=== PATIENT | female | born 1935 | race Caucasian/White ===

== ENCOUNTER 2020-05-21 09:11 | Outpatient (CLI) | payer MEDICARE, SELFPAY ==
[2020-05-21 18:54] LABS: SARS-CoV-2 RNA PCR Negative
== END 2020-05-21 09:12 | disposition home or self-care (01) ==
LOC: ANHCOVIDDT 09:11
PROVIDERS: PCP Family Medicine; Visit Provider Urology
DX: Z01.812 Encounter for preprocedural laboratory examination (principal); Z20.828 Contact with and (suspected) exposure to other viral communicable diseases
CPT/HCPCS: 87635; C9803; U0003

== ENCOUNTER 2020-05-23 00:29 | Day surgery (SDC) | payer MEDICARE, SELFPAY ==
[2020-05-02 16:16] VITALS: BMI 20.6
--- NOTE | 2020-05-20 08:07 | PM.HPGS ---
History of Present Illness History of Present Illness Consent: Risks, benefits, and alternatives have been discussed and questions answered. Patient agrees to proceed with procedure. Chief complaint: Hydronephrosis Narrative: Bianca Adams is a 84 year old female With known chronic right hydronephrosis since January 2015. She has failed to respond to attempt at balloon dilatation and we made the decision to manage this with a chronic indwelling ureteral stent. Her stent was last changed in April 2019. Review of Systems Cardiovascular: Cardiovascular: Denies chest pain, Denies lightheadedness, Denies palpitations and Denies dyspnea Respiratory: Respiratory: Denies dyspnea Gastrointestinal: Gastrointestinal: Denies diarrhea, Denies nausea and Denies vomiting Genitourinary: Genitourinary: Denies hematuria and Denies dysuria Endocrine: Endocrine: Denies palpitations PMFSH Past Medical History Medical History Anxiety Arthritis CAD (coronary artery disease) With 3 cardiac stents DDD (degenerative disc disease) DVT (deep venous thrombosis) Left arm and 2009 Fibroids GERD (gastroesophageal reflux disease) History of chronic pancreatitis Due to autoimmune disease HLD (hyperlipidemia) Hydronephrosis Chronic Lupus (systemic lupus erythematosus) Myocardial infarction Osteoporosis Skin cancer Status post resection UTI (urinary tract infection) Surgical History Surgical History H/O bilateral cataract extraction H/O cystoscopy H/O: hysterectomy History of back surgery History of biliary duct stent placement Two thousand five performed at [facility] History of cardiac catheterization History of coronary artery stent placement 3 cardiac stents History of urethral stent Family History Family History Father Family history of tuberculosis Mother Acute myocardial infarction Grandparent Cerebrovascular accident Sibling Carcinoma of colon Family history of Alzheimer's disease DVT prophylaxis Breast cancer Sister who is still living Son Diabetes mellitus Social History Social History Social History: The patient lives in her own home. Her son resides with her. She is and has 4 children (2 boys and 2 girls). 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 She used to smoke a pack of cigarettes per day for 50 years but quit smoking in 2008. She used to like to drink alcohol on occasion and in moderation but had to stop after she got pancreatitis. She is independent in activities of daily living. 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 Per prior H&P patient code status is to be DNR. Her daughter Charity is her durable power of transactional attorney. Primary care physician is Dr. Kayode Lofton Smoking packs per day: 0.5 Smoking cigarettes per day: 10.0 Years smoked: 40 Smoking pack-years: 20.00 Smoking status: Former smoker Tobacco type: cigarettes Smoking end date: 10/04/04 Alcohol intake: former Substance use: never Gender identity (if verbalized by the patient): Male Spiritual care concerns: No Agree to blood products: Yes Meds Home Medications and Allergies Home Medications Medication Instructions Recorded Confirmed Type hydrocodone-acetaminophen [[place]] 1 tablet PO Q6-8H PRN 08/22/19 05/02/20 History atorvastatin 20 mg PO DAILY 05/15/20 05/15/20 History carvedilol 25 mg PO BID 05/15/20 05/15/20 History [id number]-[id number]-svlzvby [Creon] 1 cap PO ACHS 05/15/20 05/15/20 History lisinopril 5 mg PO DAILY 05/15/20 05/15/20 History pantoprazole 40 mg PO DAILY 05/15/20 05/15/20 History Allergies Allergy/AdvReac Type Severity Reaction Status Date / Time meperidine Allergy Mild (DEMEROL) Verified 05/15/20 13:27 JESSI
--- NOTE | ~2020-05-23 | XR_ITS ---
EXAMINATION: XR retrograde pyelo w/stent RT EXAM DATE: 05/23/2020 07:57 INDICATION: Right-sided hydronephrosis, stent exchange. TECHNIQUE: Fluoroscopy used during XR retrograde pyelo w/stent RT performed by Dr. Jaquan Ayoub MD. The DAP for this procedure was 0.3 mGym2. Cine run(s) available for review. FINDINGS: Right ureteral stent present on the braid maker image. The right ureter was injected. There is mo derate right-sided hydronephrosis. There is tortuous proximal aspect to the right ureter. A right-gabriela ed double-J ureteral stent was exchanged in expected position. Correlate with procedure note. IMPRESSION: Fluoroscopy used during XR retrograde pyelo w/stent RT. Reviewed, dictated and finalized at location B.
[2020-05-23 06:45] VITALS: BP 167/125; PULSE 71; RESP 14; TEMP 36.3; O2SAT 97; BMI 19.6
--- NOTE | 2020-05-23 06:57 | WPDHPUPDATE1 ---
History and Physical Update Update Date/Time: 05/23/20 06:57 History and Physical has been reviewed, including an updated exam of the patient. There are NO changes in the patient's condition. Risks, benefits, and alternatives have been discussed and questions answered. Patient agrees to proceed with procedure.
--- NOTE | 2020-05-23 07:02 | WPDANESEPPF ---
Anes - Initial Pre Proc Eval Procedure: Operation Date: 05/23/20 07:30 Proposed Procedures p Cystoscopy with Right Ureteral Stent Exchange - Jaquan Ayoub MD Date/Time: 05/23/20 07:02 Surgeon: Jaquan Ayoub MD Pre Op Diagnosis: Hydronephrosis Patient Data Age: 84 Gender: F Height: 5 ft 4 in Weight: 51.9 kg Last Vital Signs Temp 36.3 C L 05/23/20 06:45 Pulse 71 05/23/20 06:45 Resp 14 05/23/20 06:45 BP 167/125 H 05/23/20 06:45 Pulse Ox 97 05/23/20 06:45 Allergies Allergy/AdvReac Type Severity Reaction Status Date / Time meperidine Allergy Mild (DEMEROL) Verified 05/15/20 13:27 LEGS JERKING , FEELING FUNNY Home Medications Medication Instructions Recorded Confirmed Type hydrocodone-acetaminophen [[place]] 1 tablet PO Q6-8H PRN 08/22/19 05/23/20 History atorvastatin 20 mg PO DAILY 05/15/20 05/23/20 History carvedilol 25 mg PO BID 05/15/20 05/23/20 History vcyzey-dbqcevxb-emdbhlk [Creon] 1 cap PO ACHS 05/15/20 05/23/20 History lisinopril 5 mg PO DAILY 05/15/20 05/23/20 History pantoprazole 40 mg PO DAILY 05/15/20 05/23/20 History Patient hx anesthesia problems: none Family hx anesthesia problems: none PMFSH Past Medical History Medical History Anxiety Arthritis CAD (coronary artery disease) With 3 cardiac stents DDD (degenerative disc disease) DVT (deep venous thrombosis) Left arm and 2009 Fibroids GERD (gastroesophageal reflux disease) History of chronic pancreatitis Due to autoimmune disease HLD (hyperlipidemia) Hydronephrosis Chronic Lupus (systemic lupus erythematosus) Myocardial infarction Osteoporosis Skin cancer Status post resection UTI (urinary tract infection) Surgical History Surgical History H/O bilateral cataract extraction H/O cystoscopy H/O: hysterectomy History of back surgery History of biliary duct stent placement Two thousand five performed at [facility] History of cardiac catheterization History of coronary artery stent placement 3 cardiac stents History of urethral stent Family History Family History Father Family history of tuberculosis Mother Acute myocardial infarction Grandparent Cerebrovascular accident Sibling Carcinoma of colon Family history of Alzheimer's disease DVT prophylaxis Breast cancer Sister who is still living Son Diabetes mellitus Social History Social History Social History: The patient lives in her own home. Her son resides with her. She is and has 4 children (2 boys and 2 girls). She worked in a [employer] in [place] but is now retired. She used to smoke a pack of cigarettes per day for 50 years but quit smoking in 2008. She used to like to drink alcohol on occasion and in moderation but had to stop after she got pancreatitis. She is independent in activities of daily living. 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 Per prior H&P patient code status is to be DNR. Her daughter Charity is her durable power of [place] attorney. Primary care physician is Dr. Kayode Lofton Smoking packs per day: 0.5 Smoking cigarettes per day: 10.0 Years smoked: 40 Smoking pack-years: 20.00 Smoking status: Former smoker Tobacco type: cigarettes Smoking end date: 10/04/04 Alcohol intake: former Substance use: never Living arrangements: with family Gender identity (if verbalized by the patient): Male Spiritual care concerns: No Agree to blood products: Yes Anes - Eval Final PreProcedure Day of Procedure 05/23/20 07:02 Patient weight: normal Heart: regular rate and rhythm Lungs: decreased breath sounds Airway: Mallampati scale class II Neurological: other (alert) Last oral intake: >/= 8 hours ASA cla
[2020-05-23] MEDS: LACTATED RINGERS 1,000 ML 30 ML IV CONT (07:10)
--- NOTE | 2020-05-23 07:15 | SUR.PREOP ---
DR MACHADO AWARE OF ELEVATED BP AND PT HAVING PAIN. NO INTERVENTIONS FOR AT THIS TIME.
[2020-05-23] MEDS: ceFAZolin 2 GM/D5W 50 ML 2 GM/50 ML BAG IVPB (07:25)
[2020-05-23] MEDS: LIDOCAINE HCL 2% GEL UROJET 10 ML PKG MUCOUS MEM (07:38)
[2020-05-23 07:58] VITALS: BP 117/69; PULSE 58; RESP 14; O2SAT 100
--- NOTE | 2020-05-23 08:00 | PM.PROC ---
Procedure Note - Detailed Date of procedure: 05/23/20 Pre-op diagnosis: Hydronephrosis Post-op diagnosis: same Procedure performed: 1. Cystoscopy with right retrograde pyelography. 2. Riight ureteral stent removal and replacement Description of procedure: The patient was brought to the operative suite where she was prepped and draped in a routine sterile fashion while in the dorsal lithotomy position. A 19 F rigid cystoscope was placed in her bladder and the bladder was circumferentially inspected. The bladder neck and urethra were endoscopically normal. The bladder mucosa was without hyperemia. There was no intravesical foreign body or neoplasm. There was a single orthotopic ureteral orifice bilaterally. the indwelling stent was grasped and removed with ease, there was essentially no incrustation. An angiographic catheter was used to obtain a right retrograde pyelogram and ensure proper positioning of the stent. There were no obvious filling defects or other upper tract pathology. A new 4.8F variable length ureteral stent was positioned with the proximal coil in the renal pelvis and the distal coil in the bladder. Scopes and wires were removed after emptying the patient's bladder. Anesthesia: MAC Surgeon: Jaquan Ayoub MD Estimated blood loss (mL): 0 Drains: No Packing: No Pathology: none sent Complications: No immediate complications Condition: stable Disposition: PACU
[2020-05-23 08:30] VITALS: BP 140/97; PULSE 70; RESP 16
--- NOTE | 2020-05-23 08:48 | SUR.PHASEII ---
0810; PT AWAKE AND ALERT. DENIES PAIN OR NAUSEA. TALKATIVE. UP TO RECLINER. GAIT STEADY.
[2020-05-23 09:00] VITALS: BP 155/91; PULSE 75; RESP 16
--- NOTE | 2020-05-23 14:45 | SUR.PHASEII ---
0900; PT AWAKE AND ALERT. DENIES PAIN OR NAUSEA. TALKATIVE. READY TO GO HOME. MEETS DISCHARGE CRITERIA.
== END 2020-05-23 09:25 | disposition home or self-care (01) ==
PROVIDERS: PCP Family Medicine; Visit Provider Urology
PROC: (CPT 52310; principal; 2020-05-23 07:30)
DX: N13.30 Unspecified hydronephrosis (principal); I25.10 Atherosclerotic heart disease of native coronary artery without angina pectoris; E78.5 Hyperlipidemia, unspecified; I25.2 Old myocardial infarction; M81.0 Age-related osteoporosis without current pathological fracture; M32.9 Systemic lupus erythematosus, unspecified; K21.9 Gastro-esophageal reflux disease without esophagitis; F41.9 Anxiety disorder, unspecified; Z86.718 Personal history of other venous thrombosis and embolism; Z95.5 Presence of coronary angioplasty implant and graft; Z87.891 Personal history of nicotine dependence
CPT/HCPCS: 52332; 74420; 99281; A9270; C1758; C1769; C2617; J0690; J2704; J3010; J7120

== ENCOUNTER 2020-05-23 11:01 | Emergency (ER) | payer MEDICARE, SELFPAY ==
[2020-05-23 10:55] VITALS: BP 179/117; PULSE 79; RESP 16; TEMP 36.6; O2SAT 97
--- NOTE | 2020-05-23 11:10 | ED.GENADULT ---
HPI - General Adult General Chief complaint: Wound/Laceration Stated complaint: HEMATOMA LFA Time Seen by Provider: 05/23/20 11:05 Source: patient Mode of arrival: ambulatory History of Present Illness HPI narrative: 84 years old white female presents with left forearm hematoma after IV access earlier today. Patient is concerned about the possibility of blood clot. Patient denies any fever, chills, nausea, vomiting, chest pain, shortness of breath or back pain. Related Data Home Medications Medication Instructions Recorded Confirmed hydrocodone-acetaminophen [[employer]] 1 tablet PO Q6-8H PRN 08/22/19 05/23/20 Creon 1 cap PO ACHS 05/15/20 05/23/20 atorvastatin 20 mg PO DAILY 05/15/20 05/23/20 carvedilol 25 mg PO BID 05/15/20 05/23/20 lisinopril 5 mg PO DAILY 05/15/20 05/23/20 pantoprazole 40 mg PO DAILY 05/15/20 05/23/20 Allergies Allergy/AdvReac Type Severity Reaction Status Date / Time meperidine Allergy Mild (DEMEROL) Verified 05/15/20 13:27 LEGS JERKING , FEELING FUNNY Review of Systems Review of Systems: Narrative: CONSTITUTIONAL: Denies fever, chills, or sweats. EYES: Denies visual changes, redness, or discharge. ENT: Denies rhinorrhea, congestion, sore throat, or otalgia. CARDIOVASCULAR: Denies chest pain, palpitations, or edema. RESPIRATORY: Denies cough or dyspnea. GASTROINTESTINAL: Denies abdominal pain, nausea, vomiting, or diarrhea. GENITOURINARY: Denies dysuria or hematuria. SKIN: Denies rash or itching. MUSCULOSKELETAL: Denies back pain, joint pain, or myalgia. NEUROLOGIC: Denies headache, numbness, or weakness. PSYCHIATRIC: Denies anxiety or depression. [facility] Past Medical History Medical History Anxiety Arthritis CAD (coronary artery disease) With 3 cardiac stents DDD (degenerative disc disease) DVT (deep venous thrombosis) Left arm and 2009 Fibroids GERD (gastroesophageal reflux disease) History of chronic pancreatitis Due to autoimmune disease HLD (hyperlipidemia) Hydronephrosis Chronic Lupus (systemic lupus erythematosus) Myocardial infarction Osteoporosis Skin cancer Status post resection UTI (urinary tract infection) Surgical History Surgical History H/O bilateral cataract extraction H/O cystoscopy H/O: hysterectomy History of back surgery History of biliary duct stent placement Two thousand five performed at [facility] History of cardiac catheterization History of coronary artery stent placement 3 cardiac stents History of urethral stent Family History Family History Father Family history of tuberculosis Mother Acute myocardial infarction Grandparent Cerebrovascular accident Sibling Carcinoma of colon Family history of Alzheimer's disease DVT prophylaxis Breast cancer Sister who is still living Son Diabetes mellitus Social History Social History Social History: The patient lives in her own home. Her son resides with her. She is and has 4 children (2 boys and 2 girls). 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 She used to smoke a pack of cigarettes per day for 50 years but quit smoking in 2008. She used to like to drink alcohol on occasion and in moderation but had to stop after she got pancreatitis. She is independent in activities of daily living. 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 Per prior H&P patient code status is to be DNR. Her daughter Charity is her durable power of commonwealth attorney. Primary care physician is Dr. Kayode Lofton Smoking packs per day: 0.5 Smoking cigarettes per day: 10.0 Years smoked: 40 Smoking pack-years: 20.00 Smoking status: Former smoker Tobacco type: cigarettes Smoking end date: 10/04/04 Alcohol intake: former Substance use: never L
== END 2020-05-23 11:20 | disposition home or self-care (01) ==
LOC: ANHED 11:30
PROVIDERS: Emergency Provider Emergency Medicine; PCP Family Medicine
DX: T80.89XA Other complications following infusion, transfusion and therapeutic injection, initial encounter (principal); M19.90 Unspecified osteoarthritis, unspecified site; I25.10 Atherosclerotic heart disease of native coronary artery without angina pectoris; Z95.5 Presence of coronary angioplasty implant and graft; Z86.718 Personal history of other venous thrombosis and embolism; K21.9 Gastro-esophageal reflux disease without esophagitis; E78.5 Hyperlipidemia, unspecified; M32.9 Systemic lupus erythematosus, unspecified; M81.0 Age-related osteoporosis without current pathological fracture; Z85.828 Personal history of other malignant neoplasm of skin; Z87.440 Personal history of urinary (tract) infections; Z87.891 Personal history of nicotine dependence
CPT/HCPCS: 99281

== ENCOUNTER 2020-10-15 17:16 | Emergency (ER) | payer MEDICARE, SELFPAY ==
--- NOTE | 2020-10-15 17:32 | ED.GENADULT ---
HPI - General Adult General Chief complaint: Ear Stated complaint: Ears Clogged/Foreign object in ear Time Seen by Provider: 10/15/20 17:40 Source: patient, family (daughter) and RN notes reviewed Mode of arrival: ambulatory Limitations: no limitations History of Present Illness HPI narrative: 85-year-old female presents with daughter, both complains of bilateral clogged ears, decrease hearing, and possible foreign body in ear for the past 7 days. Bianca reports she has been cleaning and picking at ears with kenisha pins and q-tips without relief. Wears hearing aids, same ones for the last 6-7 years. Denies upper respiratory infection symptoms. Denies cough. Denies ear drainage or tinnitus. Denies injury to ears. No high fevers or chills. Denies nausea, vomiting, syncopal episodes, and dizziness. Remains active. The patient and daughter reports they have not been diagnosed with COVID-19. The patient and daughter reports they are not waiting for the results of a COVID-19 lab test. The patient and daughter reports they do not have chills, weakness, or fatigue. The patient and daughter reports they do not have a new or worsening cough or shortness of breath. Denies chest pain. The patient and daughter reports they do not have any rhinorrhea, congestion, loss of taste, sore throat, and diarrhea. Denies recent traveling. Denies concerns for COVID-19 or exposures been home with limited outdoor exposure except for essential household needs and return home. At this time, patient is not suspected of having COVID-19. Some parts of this dictation were generated by voice recognition software and may contain typographical and/or grammatical inaccuracies. Related Data Home Medications Medication Instructions Recorded Confirmed atorvastatin 20 mg PO DAILY 10/15/20 10/15/20 carvedilol 25 mg PO DAILY 10/15/20 10/15/20 hydrocodone-acetaminophen 10 tablet PO DAILY 10/15/20 10/15/20 [id number]-[id number] [Creon] 24,000 cap PO DAILY 10/15/20 10/15/20 lisinopril 2.5 mg PO DAILY 10/15/20 10/15/20 pantoprazole 40 mg PO DAILY 10/15/20 10/15/20 Allergies Allergy/AdvReac Type Severity Reaction Status Date / Time meperidine Allergy Mild (DEMEROL) Verified 10/15/20 17:19 LEGS JERKING , FEELING FUNNY Review of Systems Review of Systems: Narrative: CONSTITUTIONAL: Denies fever, chills, sweats. EYES: Denies visual changes, redness, discharge. ENT: Denies itching, rhinorrhea, congestion, sore throat, ear drainage. Complains of bilateral clogged ears, decrease hearing, and possible foreign body. CARDIOVASCULAR: Denies chest pain, palpitations, edema. RESPIRATORY: Denies dyspnea, wheezing, cough. GASTROINTESTINAL: Denies abdominal pain, nausea, vomiting, diarrhea. SKIN: Denies rash or itching. MUSCULOSKELETAL: Denies acute back pain, joint pain, or myalgia. NEUROLOGIC: Denies numbness or focal weakness. PSYCHIATRIC: Denies anxiety or depression. All systems reviewed & are unremarkable except as noted in HPI and below. COUNTS INCLUDE 234 BEDS AT THE [facility] Past Medical History Medical History (Updated 10/16/20 @ 00:00 by Background Dasteveon) Anxiety Arthritis CAD (coronary artery disease) With 3 cardiac stents DDD (degenerative disc disease) DVT (deep venous thrombosis) Left arm and 2009 Fibroids GERD (gastroesophageal reflux disease) History of chronic pancreatitis Due to autoimmune disease HLD (hyperlipidemia) [place] (hard of hearing) Hydronephrosis Chronic Hydronephrosis Lupus (systemic lupus erythematosus) Myocardial infarction Near syncope Orthostatic hypotension Osteoporosis Presence of pancreatic duct stent Skin cancer Status post resection UTI (urinary tract infection) Surgical History Surgical History H/O bilateral cataract extraction H/O cystoscopy H/O: hysterectomy History of back surgery History of biliary duct stent placement Two thousand five performed at
[2020-10-15 17:35] VITALS: BP 165/116; PULSE 86; RESP 16; TEMP 37.3; O2SAT 96
== END 2020-10-15 18:29 | disposition home or self-care (01) ==
PROVIDERS: Emergency Provider Nurse Practitioner Family; PCP Family Medicine
DX: H61.23 Impacted cerumen, bilateral (principal); Z87.891 Personal history of nicotine dependence; Z66 Do not resuscitate; Z98.42 Cataract extraction status, left eye; Z98.41 Cataract extraction status, right eye; M19.90 Unspecified osteoarthritis, unspecified site; I25.10 Atherosclerotic heart disease of native coronary artery without angina pectoris; Z95.5 Presence of coronary angioplasty implant and graft; Z86.718 Personal history of other venous thrombosis and embolism; K21.9 Gastro-esophageal reflux disease without esophagitis; M32.9 Systemic lupus erythematosus, unspecified; I25.2 Old myocardial infarction; M81.0 Age-related osteoporosis without current pathological fracture; Z85.828 Personal history of other malignant neoplasm of skin
CPT/HCPCS: 69210; 99213; G0463

== ENCOUNTER 2021-03-20 10:14 | Observation (INO) | payer MEDICARE, SELFPAY ==
[2021-03-20] VITALS (12 sets, daily range): BP systolic 105–225; BP diastolic 61–125; PULSE 60–95; RESP 16–21; TEMP 36.6–37.2; O2SAT 92–99; BMI 18.5
--- NOTE | ~2021-03-20 | CT_ITS ---
EXAMINATION: CT abdomen pelvis wo con DATE: 03/20/2021 11:14 INDICATION: Flank pain. TECHNIQUE: Computed tomography (CT) of the abdomen and pelvis was performed without intravenous contr ast. The dose-length product was 154.36 mGy-cm. Automated exposure control and iterative reconstructi on technique were employed. COMPARISON: CT dated 11/20/2018. FINDINGS: Lung bases are unremarkable. Cardiomegaly. Small pericardial effusion. Fusiform 3.4 x 3.1 c m infrarenal abdominal aortic aneurysm. There is moderate-severe stenosis of the iliac arteries. Ther e are biliary stents in expected position. The spleen, pancreas and left kidney are unremarkable. The re is right renal atrophy with right internal ureteral stent in expected position. Nonobstructive bow el gas pattern. There is pneumobilia in the left hepatic lobe. IMPRESSION: 1. Biliary stents in expected position. Pneumobilia of the left hepatic lobe unchanged. 2: Fusiform infrarenal abdominal aortic aneurysm measuring 3.4 x 3.1 cm greatest axial dimension. Ext ensive atherosclerosis with moderate-severe stenosis of the iliac arteries. 3: Right renal atrophy. Right internal ureteral stent in expected position. Reviewed, dictated and finalized at location A. IMPRESSION: 1. Biliary stents in expected position. Pneumobilia of the left hepatic lobe un changed. 2: Fusiform infrarenal abdominal aortic aneurysm measuring 3.4 x 3.1 cm greates t axial dimension. Extensive atherosclerosis with moderate-severe stenosis of t he iliac arteries. 3: Right renal atrophy. Right internal ureteral stent in expected position.
--- NOTE | ~2021-03-20 | XR_ITS ---
XR chest 1V portable 03/20/2021 13:17 Indication: Hypertension. Procedure: AP portable chest Comparison: Comparison to multiple prior studies sequentially, with oldest reviewed study dated 06/2009. Findings: Heart size normal. There is atherosclerosis and ectasia of the aorta. No acute osseous abno rmality. No focal air space disease, pulmonary edema, pleural effusion or suspected pneumothorax. Impression: 1: No acute cardiopulmonary disease. Reviewed, dictated and finalized at location A. Impression: 1: No acute cardiopulmonary disease.
--- NOTE | ~2021-03-20 | XR_ITS ---
EXAMINATION: XR retrograde pyelo w/stent RT DATE: 03/21/2021 09:48 INDICATION: Right internal ureteral stent placement TECHNIQUE: Fluoroscopic images from a right internal ureteral stent placement are submitted for adan denney 96 fluoroscopic images. 44 seconds of fluoroscopy time. FINDINGS: There is a right double-J internal ureteral stent projecting in expected position, with proximal [place] loop at the level of the renal pelvis and distal loop in the pelvis within the bladder lumen. IMPRESSION: 1. Right internal ureteral stent placement. Please refer to real-time procedural findings for jamee shelton. Reviewed, dictated and finalized at location A. IMPRESSION: 1. Right internal ureteral stent placement. Please refer to real-time procedu ral findings for details.
[2021-03-20 10:29] LABS: Basophils Percent Auto 0.6 % (0.2-1.2); Eosinophils Absolute Auto 0.2 K/mm3 (0-0.3); Eosinophils Percent Auto 2.2 % (0-4.4); Hematocrit 46.2 % (37.0-47.0); Hemoglobin 15.2 g/dL (12.0-15.0); Immature Granulocyte Absolute 0.02 K/mm3 (0.00-0.031); Immature Granulocyte Percent A 0.3 % (0-0.5); Lymphocytes Absolute Auto 1.63 K/mm3 (0.9-3.2); Lymphocytes Percent Auto 23.6 % (18.3-44.2); Mean Corpuscular HGB Conc 32.9 g/dl (32-36); Mean Corpuscular Volume 91.1 fl (80-100); Monocytes Absolute Auto 0.6 K/mm3 (0.1-0.6); Monocytes Percent Auto 8.7 % (2.6-8.5); Neutrophils Absolute Auto 4.5 K/mm3 (1.3-6.7); Neutrophils Percent Auto 64.6 % (45.5-73.1); Platelet Count Result 232 k/mm3 (150-375); Red Blood Count 5.07 M/mm3 (4.2-5.4); White Blood Count 6.9 K/mm3 (4.5-10.0)
[2021-03-20 10:39] LABS: Alanine Aminotransferase 27 U/L (4-35); Albumin Level 5.1 g/dL (3.5-5.1); Alkaline Phosphatase 85 U/L (38-126); Anion Gap 11 mmol/L (8-16); Aspartate Amino Transferase 43 U/L (14-36); Bilirubin,Total 0.8 mg/dL (0.2-1.3); Blood Urea Nitrogen 18 mg/dL (7-17); Carbon Dioxide 27 mmol/L (22-30); Chloride 98 mmol/L (98-107); Estimated CRCL calculation 42 ml/min; Estimated Glomerular Filt Rate > 60; Glucose 121 mg/dL (65-105); Lipase 48 U/L (23-300); Potassium 4.3 mmol/L (3.4-5.0); Sodium 136 mmol/L (137-145)
--- NOTE | 2021-03-20 11:08 | PC.NURSE ---
Pt to CT scan via stretcher.
[2021-03-20 11:14] LABS: Add Urine Microscopic? YES; Appearance Urine Clear (Clear); Bilirubin Urine Negative (Negative); Blood Urine Negative (Negative); Color Urine Straw (Yellow); Glucose Urine UA Negative (Negative); Ketones Urine Negative (Negative); Leukocyte Esterase Ur Negative LEU/UL (Negative); Mucus Urine Rare /lpf; Nitrate Urine Negative (Negative); Protein Urine 2+ mg/dL (Negative); RBC Urine 0-2 /hpf (0-2); Specific Grav Ur 1.009 (1.001-1.035); Urobilinogen Urine Negative mg/dL (<2.0)
[2021-03-20] MEDS: MORPHINE SULFATE (*CRX) 4 MG/ML INJ IV PUSH ×2 (11:16→12:48)
[2021-03-20] MEDS: SODIUM CHLORIDE 0.9% IV 500 ML 999 ML IV CONT (11:16)
[2021-03-20] MEDS: carvediloL 25 MG TABLET PO ×2 (12:48→21:37)
[2021-03-20] MEDS: KETOROLAC 30 MG/ML VIAL (*BKC) 10 MG IV PUSH (13:10)
[2021-03-20] MEDS: FAMOTIDINE 20 MG/2 ML VIAL IV PUSH ×2 (14:05→20:34)
[2021-03-20] MEDS: SODIUM CHLORIDE 0.9% IV 1,000 ML 999 ML IV CONT (14:05)
[2021-03-20] MEDS: ONDANSETRON INJ 4 MG/2 ML VIAL IV PUSH (14:05)
--- NOTE | 2021-03-20 14:56 | ED.GENADULT ---
HPI - General Adult General Chief complaint: Abdominal Pain Stated complaint: side pain Time Seen by Provider: 03/20/21 10:22 Source: patient, family, RN notes reviewed and old records reviewed Mode of arrival: ambulatory Limitations: no limitations History of Present Illness HPI narrative: Patient is an 85-year-old female who presents to emergency department for evaluation of right-sided flank pain abdominal pain for the last several days has been taking her hydrocodone with minimal improvement notes that she has had a ureteral stent in place which was placed by Dr. Dillon's which has been there for the last year patient believes this pain to be associated with that denies any fever chills nausea vomiting diarrhea or any URI symptoms. Patient notes that she has run out of her pain with intensifying pain Related Data Home Medications Medication Instructions Recorded Confirmed atorvastatin 20 mg PO DAILY 10/15/20 10/15/20 carvedilol 25 mg PO DAILY 10/15/20 10/15/20 hydrocodone-acetaminophen 10 tablet PO DAILY 10/15/20 10/15/20 [id number]-fuzddyjq-[id number] [Creon] 24,000 cap PO DAILY 10/15/20 10/15/20 lisinopril 2.5 mg PO DAILY 10/15/20 10/15/20 pantoprazole 40 mg PO DAILY 10/15/20 10/15/20 Allergies Allergy/AdvReac Type Severity Reaction Status Date / Time meperidine Allergy Mild (DEMEROL) Verified 03/20/21 10:33 LEGS JERKING , FEELING FUNNY Review of Systems Review of Systems: All systems reviewed & are unremarkable except as noted in HPI and below PMFSH Past Medical History Medical History Anxiety Arthritis CAD (coronary artery disease) With 3 cardiac stents DDD (degenerative disc disease) DVT (deep venous thrombosis) Left arm and 2009 Fibroids GERD (gastroesophageal reflux disease) History of chronic pancreatitis Due to autoimmune disease HLD (hyperlipidemia) [place] (hard of hearing) Hydronephrosis Chronic Hydronephrosis Lupus (systemic lupus erythematosus) Myocardial infarction Near syncope Orthostatic hypotension Osteoporosis Presence of pancreatic duct stent Skin cancer Status post resection UTI (urinary tract infection) Surgical History Surgical History H/O bilateral cataract extraction H/O cystoscopy H/O: hysterectomy History of back surgery History of biliary duct stent placement Two thousand five performed at [facility] History of cardiac catheterization History of coronary artery stent placement 3 cardiac stents History of urethral stent Family History Family History Father Family history of tuberculosis Mother Acute myocardial infarction Grandparent Cerebrovascular accident Sibling Carcinoma of colon Family history of Alzheimer's disease DVT prophylaxis Breast cancer Sister who is still living Son Diabetes mellitus Social History Social History Social History: The patient lives in her own home. Her son resides with her. She is and has 4 children (2 boys and 2 girls). 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 She used to smoke a pack of cigarettes per day for 50 years but quit smoking in 2008. She used to like to drink alcohol on occasion and in moderation but had to stop after she got pancreatitis. She is independent in activities of daily living. 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 Per prior H&P patient code status is to be DNR. Her daughter Charity is her durable power of deputy prosecuting attorney. Primary care physician is Dr. Kayode Lofton Smoking packs per day: 0.5 Smoking cigarettes per day: 10.0 Years smoked: 40 Smoking pack-years: 20.00 Smoking status: Former smoker Tobacco type: cigarettes Smoking end date: 10/04/04 Alcohol intake: former Substance use: never
--- NOTE | 2021-03-20 17:03 | WPDURCON ---
Assessment and Plan Assessment and plan (1) Abdominal pain: Code(s): R10.9 - Unspecified abdominal pain Status: Acute (2) Ureteral stricture, right: Code(s): N13.5 - Crossing vessel and stricture of ureter without hydronephrosis Status: Acute Assessment and Plan: Chronic right ureteral stricture managed with ureteral stent. While patient is here I will plan to exchange her right ureteral stent to look eliminate any possibility that may be contributing to her atypical abdominal pain. Urology Consult Note HPI Date Seen: 03/20/21 Requesting Physician: Belinda Calles MD Primary Care Provider: Kayode Lofton MD Consult Narrative Narrative: Bianca Adams is a 85 year old female who is very well known to me with a several year history of a chronic right ureteral stricture with right renal atrophy that is managed with an indwelling ureteral stent. We change the stent annually and there is suppressing the little encrustation at that prolonged interval. She presents to the ER with a somewhat atypical abdominal pain. CT imaging shows the stent to be in good position. After discussion with patient we decided to change the stent while she is here is it is due be changed within the next 6-8 weeks. Review of Systems Cardiovascular: Cardiovascular: Denies chest pain, Denies lightheadedness, Denies palpitations and Denies dyspnea Respiratory: Respiratory: Denies dyspnea Gastrointestinal: Gastrointestinal: Reports abdominal pain, Denies diarrhea, Denies nausea and Denies vomiting Genitourinary: Genitourinary: Denies hematuria and Denies dysuria Endocrine: Endocrine: Denies palpitations [facility] Past Medical History Medical History Anxiety Arthritis CAD (coronary artery disease) With 3 cardiac stents DDD (degenerative disc disease) DVT (deep venous thrombosis) Left arm and 2009 Fibroids GERD (gastroesophageal reflux disease) History of chronic pancreatitis Due to autoimmune disease HLD (hyperlipidemia) [place] (hard of hearing) Hydronephrosis Chronic Hydronephrosis Lupus (systemic lupus erythematosus) Myocardial infarction Near syncope Orthostatic hypotension Osteoporosis Presence of pancreatic duct stent Skin cancer Status post resection UTI (urinary tract infection) Surgical History Surgical History H/O bilateral cataract extraction H/O cystoscopy H/O: hysterectomy History of back surgery History of biliary duct stent placement Two thousand five performed at [facility] History of cardiac catheterization History of coronary artery stent placement 3 cardiac stents History of urethral stent Family History Family History Father Family history of tuberculosis Mother Acute myocardial infarction Grandparent Cerebrovascular accident Sibling Carcinoma of colon Family history of Alzheimer's disease DVT prophylaxis Breast cancer Sister who is still living Son Diabetes mellitus Social History Social History Social History: The patient lives in her own home. Her son resides with her. She is and has 4 children (2 boys and 2 girls). 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 She used to smoke a pack of cigarettes per day for 50 years but quit smoking in 2008. She used to like to drink alcohol on occasion and in moderation but had to stop after she got pancreatitis. She is independent in activities of daily living. 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 Per prior H&P patient code status is to be DNR. Her daughter Charity is her durable power of state's attorney. Primary care physician is Dr. Kayode Lofton Smoking packs per day: 0.5 Smoking cigarettes per day: 10.0 Years smoked: 40 Smoking pack-yea
--- NOTE | 2021-03-20 17:34 | WPDANESEPP ---
Anes - Eval Pre Procedure Procedure: Operation Date: 03/21/21 12:15 Proposed Procedures p Cystoscopy with Left Stent Exchange - Jaquan Ayoub MD Date/Time: 03/20/21 17:34 Pre Op Diagnosis: Abd pain Patient Data Age: 85 Gender: F Height: 5 ft 6 in Weight: 52 kg Last Vital Signs Temp 99.0 F 03/20/21 10:18 Pulse 61 03/20/21 16:16 Resp 19 03/20/21 16:16 BP 107/61 03/20/21 16:16 Pulse Ox 97 03/20/21 16:16 Allergies Allergy/AdvReac Type Severity Reaction Status Date / Time meperidine Allergy Mild (DEMEROL) Verified 03/20/21 10:33 LEGS JERKING , FEELING FUNNY Home Medications Medication Instructions Recorded Confirmed Type atorvastatin 20 mg PO DAILY 10/15/20 10/15/20 History carvedilol 25 mg PO DAILY 10/15/20 10/15/20 History fluticasone propionate [Allergy 1 spray NASAL BID #16 ml 10/15/20 Rx Relief (fluticasone)] hydrocodone-acetaminophen 10 tablet PO DAILY 10/15/20 10/15/20 History zwwegg-ouvsoqkb-rnjgbzo [Creon] 24,000 cap PO DAILY 10/15/20 10/15/20 History lisinopril 2.5 mg PO DAILY 10/15/20 10/15/20 History loratadine [Claritin] 10 mg PO DAILY 60 Days #60 tablet 10/15/20 Rx ferngjin-nhcots-EY-thonzonium 4 drop OTIC (EAR) TID 7 Days #10 ml 10/15/20 Rx [Cortisporin-TC] pantoprazole 40 mg PO DAILY 10/15/20 10/15/20 History Laboratory Tests 03/20/21 03/20/21 03/20/21 10:24 10:24 10:53 WBC 6.9 K/mm3 K/mm3 (4.5-10.0) RBC 5.07 M/mm3 M/mm3 (4.2-5.4) Hgb 15.2 g/dL H g/dL (12.0-15.0) Hct 46.2 % % (37.0-47.0) MCV 91.1 fl fl (80-100) MCH 30.0 pg pg (26-34) MCHC 32.9 g/dl g/dl (32-36) RDW 13.0 % % (11.5-14.5) Plt Count 232 k/mm3 k/mm3 (150-375) MPV 9.0 fl fl (7.4-10.4) Immature Gran % (Auto) 0.3 % % (0-0.5) Neut % (Auto) 64.6 % % (45.5-73.1) Lymph % (Auto) 23.6 % % (18.3-44.2) [place] % (Auto) 8.7 % H % (2.6-8.5) Eos % (Auto) 2.2 % % (0-4.4) Baso % (Auto) 0.6 % % (0.2-1.2) Lymph # (Auto) 1.63 K/mm3 K/mm3 (0.9-3.2) [place] # (Auto) 0.6 K/mm3 K/mm3 (0.1-0.6) Eos # (Auto) 0.2 K/mm3 K/mm3 (0-0.3) Baso # (Auto) 0.0 K/mm3 K/mm3 (0.0-0.1) Abs Immat Gran (auto) 0.02 K/mm3 K/mm3 (0.00-0.031) Absolute Neuts (auto) 4.5 K/mm3 K/mm3 (1.3-6.7) Absolute Nucleated RBC 0.0 K/mm3 K/mm3 (0.0-0.012) Nucleated RBC % 0.0 % % (0.0-0.2) Sodium 136 mmol/L L mmol/L (137-145) Potassium 4.3 mmol/L mmol/L (3.4-5.0) Chloride 98 mmol/L mmol/L (98-107) Carbon Dioxide 27 mmol/L mmol/L (22-30) Anion Gap 11 mmol/L mmol/L (8-16) BUN 18 mg/dL H D mg/dL (7-17) Creatinine 0.70 mg/dL mg/dL (0.7-1.0) Estim Creat Clear Calc 42 ml/min ml/min Estimated GFR > 60 (59 - ) Glucose 121 mg/dL H mg/dL (65-105) Calcium 10.0 mg/dL mg/dL (8.4-10.2) Total Bilirubin 0.8 mg/dL mg/dL (0.2-1.3) AST 43 U/L H U/L (14-36) ALT 27 U/L U/L (4-35) Alkaline Phosphatase 85 U/L U/L (38-126) Total Protein 9.0 g/dL H g/dL (6.3-8.2) Albumin 5.1 g/dL g/dL (3.5-5.1) Lipase 48 U/L U/L (23-300) Urine Color Straw (Yellow) Urine Appearance Clear (Clear) Urine pH 7.0 (5.0-9.0) Ur Specific [place] 1.009 (1.001-1.035) Urine Protein 2+ mg/dL H mg/dL (Negative) Urine Glucose (UA) Negative mg/dL mg/dL (Negative) Urine Ketones Negative mg/dL mg/dL (Negative) Ur Blood (Man) Negative (Negative) Urine Nitrate Negative (Negative) Urine Bilirubin Negative (Negative) Urine Urobilinogen Negative mg/dL mg/dL (<2.0) Leukocyte
--- NOTE | 2021-03-20 18:52 | PM.IMHP ---
H&P: HPI History of Present Illness Date/Time: 03/20/21 18:52 this is a 85-year-old female patient who lives with her son. The patient has been having chronic pain but has gotten worse over the last several days. She has been taking hydrocodone but has been taking more than usual. She has some right flank pain. The patient has a history of ureteral stent in place that was placed by Dr. jaime. The patient had ran out of her pain medicine when she came to the emergency room. The patient does have a history of degenerative disc disease with back surgery in the past. She had abdominal pelvis CT performed today which read as: 1. Biliary stents in expected position. Pneumobilia of the left hepatic lobe unchanged. 2: Fusiform infrarenal abdominal aortic aneurysm measuring 3.4 x 3.1 cm greatest axial dimension. Extensive atherosclerosis with moderate-severe stenosis of the iliac arteries. 3: Right renal atrophy. Right internal ureteral stent in expected position. Chest x-ray was read as no acute cardiopulmonary disease. Patient was given IV fluids, Coreg, morphine, Toradol, Pepcid and Zofran. Patient is being admitted for observation on 03/20/2021 Chief Complaint: Abdominal pain Review of Systems Review of Systems: All systems reviewed & are unremarkable except as noted in HPI and below Constitutional: Constitutional: Reports as per HPI and Reports no additional constitutional complaints Eyes: Eyes: Reports as per HPI and Reports no additional eye complaints ENT: Reports system reviewed and no additional complaints, except as documented and Reports Normal hearing present Cardiovascular: Cardiovascular: Reports no additional cardiovascular complaints Respiratory: Respiratory: Reports no additional respiratory complaints and Reports no additional respiratory complaints Gastrointestinal: Gastrointestinal: Reports as per HPI and Reports no additional gastrointestinal complaints Musculoskeletal: Musculoskeletal: Reports no additional musculoskeletal complaints Integumentary/Breasts: Skin/Breast: Reports system reviewed and no additional complaints, except as docu and Reports as per HPI Neurologic: Reports system reviewed and no additional complaints, except as documented, Reports as per HPI and Reports Normal hearing present Psychiatric: Psychiatric: Reports no additional psychiatric complaints and Reports as per HPI Endocrine: Endocrine: Reports no additional endocrine complaints Hematologic/Lymphatic: Hematologic/Lymphatic: Reports no additional hematologic/lymphatic complaints Allergic/Immunologic: Allergic/Immunologic: Reports no additional allergic/immunologic complaints [facility] Past Medical History Medical History (Updated 03/20/21 @ 19:30 by Megha Braga NP) Anxiety Arthritis CAD (coronary artery disease) With 3 cardiac stents Chronic pancreatitis DDD (degenerative disc disease) DVT (deep venous thrombosis) Left arm and 2009 Fibroids GERD (gastroesophageal reflux disease) History of chronic pancreatitis Due to autoimmune disease HLD (hyperlipidemia) [place] (hard of hearing) HTN (hypertension), malignant Hydronephrosis Chronic Hydronephrosis Lupus (systemic lupus erythematosus) Myocardial infarction Near syncope Orthostatic hypotension Osteoporosis Presence of pancreatic duct stent Skin cancer Status post resection UTI (urinary tract infection) Surgical History Surgical History H/O bilateral cataract extraction H/O cystoscopy H/O: hysterectomy History of back surgery History of biliary duct stent placement Two thousand five performed at [facility] History of cardiac catheterization History of coronary artery stent placement 3 cardiac stents History of urethral stent Family History Family History Father Family history of tuberculosis Mother Acute myocardial infarction Grandparent Cerebrovascu
[2021-03-20] MEDS: LACTATED RINGERS 1,000 ML 75 ML IV CONT (20:33)
[2021-03-20] MEDS: MORPHINE SULFATE (*CRX) 2 MG/ML INJ IV PUSH (20:34)
[2021-03-21] VITALS (19 sets, daily range): BP systolic 105–202; BP diastolic 62–179; PULSE 63–95; RESP 10–22; TEMP 36–37.1; O2SAT 93–99; BMI 18.5
[2021-03-21 06:39] LABS: Basophils Percent Auto 0.9 % (0.2-1.2); Eosinophils Absolute Auto 0.1 K/mm3 (0-0.3); Eosinophils Percent Auto 3.2 % (0-4.4); Hematocrit 37.5 % (37.0-47.0); Hemoglobin 11.9 g/dL (12.0-15.0); Immature Granulocyte Absolute 0.01 K/mm3 (0.00-0.031); Immature Granulocyte Percent A 0.2 % (0-0.5); Lymphocytes Absolute Auto 1.03 K/mm3 (0.9-3.2); Lymphocytes Percent Auto 23.4 % (18.3-44.2); Mean Corpuscular HGB Conc 31.7 g/dl (32-36); Mean Corpuscular Volume 94.5 fl (80-100); Mean Platelet Volume 9.2 fl (7.4-10.4); Monocytes Absolute Auto 0.6 K/mm3 (0.1-0.6); Monocytes Percent Auto 13.4 % (2.6-8.5); Neutrophils Absolute Auto 2.6 K/mm3 (1.3-6.7); Neutrophils Percent Auto 58.9 % (45.5-73.1); Platelet Count Result 143 k/mm3 (150-375); Red Blood Count 3.97 M/mm3 (4.2-5.4); Red Cell Distribution Width 13.1 % (11.5-14.5); White Blood Count 4.4 K/mm3 (4.5-10.0)
--- NOTE | 2021-03-21 06:41 | WPDHPUPDATE1 ---
History and Physical Update Update Date/Time: 03/21/21 06:41 History and Physical has been reviewed, including an updated exam of the patient. There are NO changes in the patient's condition. Risks, benefits, and alternatives have been discussed and questions answered. Patient agrees to proceed with procedure.
[2021-03-21 06:49] LABS: Anion Gap 6 mmol/L (8-16); Blood Urea Nitrogen 20 mg/dL (7-17); Calcium 8.5 mg/dL (8.4-10.2); Carbon Dioxide 26 mmol/L (22-30); Chloride 102 mmol/L (98-107); Estimated CRCL calculation 37 ml/min; Estimated Glomerular Filt Rate > 60; Glucose 88 mg/dL (65-105); Lipase 29 U/L (23-300); Magnesium 1.7 mg/dL (1.6-2.3); Potassium 3.7 mmol/L (3.4-5.0); Sodium 134 mmol/L (137-145)
--- NOTE | 2021-03-21 08:33 | WPDANESEPPF ---
Anes - Initial Pre Proc Eval Procedure: Operation Date: 03/21/21 12:15 Proposed Procedures p Cystoscopy with Left Stent Exchange - Jaquan Ayoub MD Date/Time: 03/21/21 08:33 Surgeon: Belinda Calles MD Pre Op Diagnosis: Abd pain Patient Data Age: 85 Gender: F Height: 1.68 m Weight: 52 kg Last Vital Signs Temp 36.8 C 03/21/21 06:00 Pulse 72 03/21/21 06:00 Resp 18 03/21/21 06:00 BP 105/82 03/21/21 06:00 Pulse Ox 93 03/21/21 06:00 Allergies Allergy/AdvReac Type Severity Reaction Status Date / Time meperidine Allergy Mild (DEMEROL) Verified 03/20/21 10:33 LEGS JERKING , FEELING FUNNY Home Medications Medication Instructions Recorded Confirmed Type atorvastatin 20 mg PO DAILY 10/15/20 03/20/21 History carvedilol 25 mg PO BID 10/15/20 03/20/21 History hydrocodone-acetaminophen 1 tablet PO Q6H PRN 10/15/20 03/20/21 History hhhusg-ibcrcwse-okinfgd [Creon] 3 cap PO TIDWM 10/15/20 03/20/21 History lisinopril 5 mg PO DAILY 10/15/20 03/20/21 History loratadine [Claritin] 10 mg PO DAILY 60 Days #60 tablet 10/15/20 03/20/21 Rx pantoprazole 40 mg PO DAILY 10/15/20 03/20/21 History aspirin 81 mg PO DAILY 03/20/21 03/20/21 History dicyclomine 20 mg PO QID PRN 03/20/21 03/20/21 History duloxetine 30 mg PO DAILY 03/20/21 03/20/21 History fluticasone propionate [Allergy 2 spray NASAL DAILY 03/20/21 03/20/21 History Relief (fluticasone)] meclizine 12.5 mg PO BID PRN 03/20/21 03/20/21 History nitroglycerin [Nitrostat] 0.4 mg SUBLINGUAL Q5M PRN 03/20/21 03/20/21 History sodium bicarbonate 1,300 mg PO DAILY 03/20/21 03/20/21 History Laboratory Tests 03/20/21 03/20/21 03/20/21 10:24 10:24 10:53 WBC 6.9 K/mm3 K/mm3 (4.5-10.0) RBC 5.07 M/mm3 M/mm3 (4.2-5.4) Hgb 15.2 g/dL H g/dL (12.0-15.0) Hct 46.2 % % (37.0-47.0) MCV 91.1 fl fl (80-100) MCH 30.0 pg pg (26-34) MCHC 32.9 g/dl g/dl (32-36) RDW 13.0 % % (11.5-14.5) Plt Count 232 k/mm3 k/mm3 (150-375) MPV 9.0 fl fl (7.4-10.4) Immature Gran % (Auto) 0.3 % % (0-0.5) Neut % (Auto) 64.6 % % (45.5-73.1) Lymph % (Auto) 23.6 % % (18.3-44.2) [place] % (Auto) 8.7 % H % (2.6-8.5) Eos % (Auto) 2.2 % % (0-4.4) Baso % (Auto) 0.6 % % (0.2-1.2) Lymph # (Auto) 1.63 K/mm3 K/mm3 (0.9-3.2) [place] # (Auto) 0.6 K/mm3 K/mm3 (0.1-0.6) Eos # (Auto) 0.2 K/mm3 K/mm3 (0-0.3) Baso # (Auto) 0.0 K/mm3 K/mm3 (0.0-0.1) Abs Immat Gran (auto) 0.02 K/mm3 K/mm3 (0.00-0.031) Absolute Neuts (auto) 4.5 K/mm3 K/mm3 (1.3-6.7) Absolute Nucleated RBC 0.0 K/mm3 K/mm3 (0.0-0.012) Nucleated RBC % 0.0 % % (0.0-0.2) Sodium 136 mmol/L L mmol/L (137-145) Potassium 4.3 mmol/L mmol/L (3.4-5.0) Chloride 98 mmol/L mmol/L (98-107) Carbon Dioxide 27 mmol/L mmol/L (22-30) Anion Gap 11 mmol/L mmol/L (8-16) BUN 18 mg/dL H D mg/dL (7-17) Creatinine 0.70 mg/dL mg/dL (0.7-1.0) Estim Creat Clear Calc 42 ml/min ml/min Estimated GFR > 60 (59 - ) Glucose 121 mg/dL H mg/dL (65-105) Calcium 10.0 mg/dL mg/dL (8.4-10.2) Magnesium Total Bilirubin 0.8 mg/dL mg/dL (0.2-1.3) AST 43 U/L H U/L (14-36) ALT 27 U/L U/L (4-35) Alkaline Phosphatase 85 U/L U/L (38-126) Total Protein 9.0 g/dL H g/dL (6.3-8.2) Albumin 5.1 g/dL g/dL (3.5-5.1) Lipase 48 U/L U/L (23-300) Urine Color Straw (Yellow) Urine Appearance Clear (Clear) Urine pH 7.0 (5.0-9.0) Ur Specific [place] 1.009 (1.001-1.035) Urine Protein 2+ mg/dL H mg/dL (Negative) Urine Glucose (UA
[2021-03-21] MEDS: ONDANSETRON INJ 4 MG/2 ML VIAL IV PUSH ×3 (08:41→17:00)
[2021-03-21] MEDS: LACTATED RINGERS 1,000 ML 30 ML IV CONT ×2 (09:10→11:15)
[2021-03-21] MEDS: LIDOCAINE HCL 2% GEL UROJET 10 ML PKG MUCOUS MEM (09:40)
--- NOTE | 2021-03-21 09:46 | W.PM.PROC2 ---
Procedure Note - Detailed Date of Procedure 03/21/21 Pre-op Diagnosis Abd pain, chronic right ureteral stricture Post-op Diagnosis same Procedure Performed cystoscopy, right retrograde pyelogram, right ureteral stent removal and replacement Surgeon Jaquan Ayoub MD Moisture Meter Operator none Anesthesia MAC Indications chronic right mid ureteral stricture Findings persistent stricture without significant change Description of Procedure Patient brought to the operative suite where she has prepped draped in routine sterile fashion. 2% lidocaine jelly was introduced intraurethrally and systemic sedation is administered per the anesthesia department. Cystoscopy is undertaken with a 21 F rigid cystoscope. The bladder neck and urethra endoscopically normal. Bladder mucosa is normal without hyperemia. She has an indwelling right ureteral stent without any additional foreign body or neoplasm. The stent is removed and a 0.035 in glidewire was advanced in the right renal pelvis. Retrograde pyelogram was obtained which shows a persistent stricture in the proximal to mid ureter. A 4.8 F ureteral stent was replaced with the proximal coil in the renal pelvis and distal coil in the bladder. Scopes wires removed and she was taken recovery room good condition. Implants 4.8F right ureteral stent Estimated Blood Loss 0 Urine Output 400 Drains Yes (4.8F right ureteral stent) Packing No Pathology none sent Complications No immediate complications Condition stable Disposition PACU
[2021-03-21] MEDS: hydrALAZINE HCL 20 MG/ML VIAL 10 MG IV PUSH ×2 (10:23→10:55)
[2021-03-21] MEDS: DEXAMETHASONE SOD PHOS INJ 4 MG/ML VIAL IV PUSH (10:59)
[2021-03-21] MEDS: HALOPERIDOL LACTATE 5 MG/ML VIAL 1 MG IV PUSH (11:48)
--- NOTE | 2021-03-21 11:56 | SUR.PHASEI ---
[id number] sbar faxed floor notified
[2021-03-21] MEDS: LACTATED RINGERS 1,000 ML 75 ML IV CONT (12:41)
--- NOTE | 2021-03-21 14:24 | PM.IMPN ---
Progress Note: A&P Assessment and Plan (1) Ureteral stricture, right: Code(s): N13.5 - Crossing vessel and stricture of ureter without hydronephrosis Status: Acute Assessment and Plan: Patient has history of chronic right ureteral stricture treated by ureteral stent placement. Patient presented with right flank pain. She is evaluated by Urology, Dr. Ayoub, and underwent right ureteral stent removal and replacement today. Unfortunately she developed significant anxiety I am told and she received a dose of Haldol. She remains sleepy. (2) Chronic pancreatitis: Qualifiers: Pancreatitis type: unspecified pancreatitis type Qualified Code(s): K86.1 - Other chronic pancreatitis Code(s): K86.1 - Other chronic pancreatitis Status: Chronic Assessment and Plan: Continue her home Creon. (3) HTN (hypertension): Code(s): I10 - Essential (primary) hypertension Status: Chronic Assessment and Plan: Blood pressures reviewed; stable today maintained on her home carvedilol, lisinopril. Monitor BP and adjust treatment as needed. (4) Anxiety: Code(s): F41.9 - Anxiety disorder, unspecified Status: Chronic Assessment and Plan: Continue her home Cymbalta. She received a dose of Haldol in the PACU due to significant anxiety I am told. (5) Narcotic drug use: Code(s): F11.90 - Opioid use, unspecified, uncomplicated Status: Chronic Assessment and Plan: Patient is on high doses of narcotics. She apparently ran out of her pain medications early before her new script could be filled. Continue her home pain regimen and monitor. Subjective Date/time seen: 03/21/21 1230 Interval history: Ms. Adams is an 85yo F admitted with right flank pain. She has a history of chronic right ureteral stricture managed with ureteral stent. She is seen in follow-up this afternoon after just returning from right ureteral stent removal and replacement. I am notified by nursing that she became very anxious, I am unclear on the exact events but she did receive a dose of Haldol about an hour ago. She is pretty somnolent but not really offering any complaints. Review of Systems Review of Systems: Narrative: Limited due to mental status at present. Exam Narrative: Exam Narrative: General: Elderly female resting supine in bed in no acute distress. Neuro: Somnolent but wakes easily to answer questions. No focal neurological deficits appreciated. Speech is soft and slow but clear. HEENT: Normocephalic, EOMI, oral mucosa tacky. Cardiovascular: Rate and rhythm are regular. No notable murmur, rub, or gallop. Respiratory: Lungs clear to auscultation bilaterally. Respirations even and non-labored. Tolerating room air. Abdomen: Soft, non-tender, non-distended, bowel sounds present. Extremities: Peripheral pulses intact. No edema or pain to palpation. Objective Data Vital Signs Vital Signs: Last Vital Signs Temp 97.5 F L 03/21/21 12:45 Pulse 82 03/21/21 12:45 Resp 14 03/21/21 12:45 BP 120/71 03/21/21 12:45 Pulse Ox 94 03/21/21 12:45 Intake/Output Intake/Output: Intake & Output 03/18/21 03/19/21 03/20/21 03/21/21 23:59 23:59 23:59 23:59 Intake Total 1980 3000 Output Total 600 800 Balance 1380 2200 Meds/Results Medications: Active Medications Generic Name Dose Route Start Last Admin Trade Name Freq PRN Reason Stop Dose Admin Hydrocodone Bitart/Acetaminophen 1 tab 03/20/21 20:41 Hydrocodone/Acetaminophen (*Crx) 10-325 Mg Tablet PO Q6H PRN Pain Rated 4-6 Atorvastatin Calcium 20 mg 03/21/21 09:00 Atorvastatin 20 Mg Tablet PO DAILY KOMAL Carvedilol 25 mg 03/20/21 21:00 03/20/21 2
[2021-03-21] MEDS: HYDROcodone/acetaminophen (*CRX) 10-325 MG TABLET 1 TAB PO (16:18)
[2021-03-21] MEDS: SODIUM BICARBONATE TAB 650 MG TABLET 1300 MG PO (16:23)
[2021-03-21] MEDS: DULoxetine HCL 30 MG CAPSULE.DR PO (16:23)
[2021-03-21] MEDS: DICYCLOMINE HCL 10 MG CAPSULE 20 MG PO (16:23)
[2021-03-21] MEDS: carvediloL 25 MG TABLET PO ×2 (16:23→21:54)
[2021-03-21] MEDS: MECLIZINE HCL 12.5 MG TABLET PO (16:23)
[2021-03-21] MEDS: lisinopriL 5 MG TABLET PO (16:23)
[2021-03-21] MEDS: PANTOPRAZOLE 40 MG TABLET PO (16:24)
[2021-03-21] MEDS: LORATADINE 10 MG TABLET PO (16:24)
[2021-03-21] MEDS: FAMOTIDINE 20 MG/2 ML VIAL IV PUSH ×2 (16:24→21:55)
[2021-03-21] MEDS: ATORVASTATIN 20 MG TABLET PO (16:24)
[2021-03-21] MEDS: MAGNESIUM SULF 2 GM/WATER 50ML 2 GM/50 ML BAG IVPB (17:01)
[2021-03-22] MEDS: HYDROcodone/acetaminophen (*CRX) 10-325 MG TABLET 1 TAB PO ×2 (04:08→10:16)
[2021-03-22] MEDS: LACTATED RINGERS 1,000 ML 75 ML IV CONT (04:09)
[2021-03-22 05:39] VITALS: BP 126/68; PULSE 72; RESP 17; TEMP 36.9; O2SAT 93
[2021-03-22 06:51] LABS: Hematocrit 35.8 % (37.0-47.0); Hemoglobin 11.7 g/dL (12.0-15.0); Mean Corpuscular HGB Conc 32.7 g/dl (32-36); Mean Corpuscular Hemoglobin 29.5 pg (26-34); Mean Corpuscular Volume 90.4 fl (80-100); Platelet Count Result 161 k/mm3 (150-375); Red Blood Count 3.96 M/mm3 (4.2-5.4); Red Cell Distribution Width 12.8 % (11.5-14.5); White Blood Count 8.2 K/mm3 (4.5-10.0)
[2021-03-22 06:59] LABS: Anion Gap 4 mmol/L (8-16); Blood Urea Nitrogen 21 mg/dL (7-17); Calcium 8.6 mg/dL (8.4-10.2); Carbon Dioxide 30 mmol/L (22-30); Chloride 95 mmol/L (98-107); Estimated CRCL calculation 34 ml/min; Estimated Glomerular Filt Rate 60; Glucose 90 mg/dL (65-105); Magnesium 2.1 mg/dL (1.6-2.3); Potassium 3.6 mmol/L (3.4-5.0); Sodium 129 mmol/L (137-145)
[2021-03-22] MEDS: FLUTICASONE PROPIONATE 0.05% NA SPR 16 GM BTL (*BKC) 2 SPRAY NASAL (08:54)
[2021-03-22] MEDS: PANTOPRAZOLE 40 MG TABLET PO (08:56)
[2021-03-22 10:08] VITALS: PULSE 80
[2021-03-22] MEDS: carvediloL 25 MG TABLET PO (10:08)
[2021-03-22] MEDS: LORATADINE 10 MG TABLET PO (10:09)
[2021-03-22] MEDS: ATORVASTATIN 20 MG TABLET PO (10:09)
[2021-03-22] MEDS: DULoxetine HCL 30 MG CAPSULE.DR PO (10:09)
[2021-03-22] MEDS: FAMOTIDINE 20 MG/2 ML VIAL IV PUSH (10:09)
[2021-03-22] MEDS: SODIUM BICARBONATE TAB 650 MG TABLET 1300 MG PO (10:09)
[2021-03-22] MEDS: lisinopriL 5 MG TABLET PO (10:09)
[2021-03-22] MEDS: CYCLOBENZAPRINE HCL 5 MG TABLET PO (10:10)
[2021-03-22 13:50] LABS: Anion Gap 8 mmol/L (8-16); Blood Urea Nitrogen 23 mg/dL (7-17); Calcium 8.7 mg/dL (8.4-10.2); Carbon Dioxide 29 mmol/L (22-30); Chloride 93 mmol/L (98-107); Estimated CRCL calculation 30 ml/min; Estimated Glomerular Filt Rate 53; Glucose 94 mg/dL (65-105); Potassium 3.7 mmol/L (3.4-5.0); Sodium 130 mmol/L (137-145)
[2021-03-22 14:00] VITALS: BP 107/63; PULSE 54; RESP 16; TEMP 36.8; O2SAT 93
--- NOTE | 2021-03-22 15:48 | PM.DS ---
DS: Admitting Diagnosis Admitting Diagnosis Admitting Diagnosis: R flank pain, chronic ureteral stricture DS: Discharge Diagnosis Discharge Diagnosis (1) Ureteral stricture, right: Code(s): N13.5 - Crossing vessel and stricture of ureter without hydronephrosis Status: Acute Assessment and Plan: Date of Admission 03/20/21 Date of Discharge 03/22/21 Ms. Adams is an 85yo F who presented to the ED for evaluation of right flank pain. She has a history of chronic right ureteral stricture treated by ureteral stent placement and follows with Dr Ayoub. She was evaluated by Dr Ayoub and underwent right ureteral stent removal and replacement. She developed significant anxiety and required a dose of Haldol in the PACU, was kept for observation overnight. She is on high doses of narcotics long-term and family noted she came to the ED because she was out of pain medication. Family endorses she may take more than the prescribed amount. Discussed with patient she will be provided a small amount to get her through the weekend but needs to follow up with PCP promptly Wednesday. Discussed she would benefit from weaning this medication when able. She is hemodynamically stable for discharge 03/22/21. (2) Chronic pancreatitis: Qualifiers: Pancreatitis type: unspecified pancreatitis type Qualified Code(s): K86.1 - Other chronic pancreatitis Code(s): K86.1 - Other chronic pancreatitis Status: Chronic Assessment and Plan: Continue her home Creon. (3) HTN (hypertension): Code(s): I10 - Essential (primary) hypertension Status: Chronic Assessment and Plan: Blood pressures stable maintained on her home carvedilol, lisinopril. (4) Anxiety: Code(s): F41.9 - Anxiety disorder, unspecified Status: Chronic Assessment and Plan: Continue her home Cymbalta. (5) Narcotic drug use: Code(s): F11.90 - Opioid use, unspecified, uncomplicated Status: Chronic Assessment and Plan: Patient is on high doses of narcotics. She apparently ran out of her pain medications early before her new script could be filled. See above. DS: Summary Hospital Course Hospital Course: See above. Time Spent with Patient Time attestation: Total time spent providing and/or coordinating discharge services: 35 minutes Exam Narrative: Exam Narrative: General: Elderly female resting supine in bed in no acute distress. Neuro: Awake and alert; hard of hearing ++ but answering questions appropriately. No focal neurological deficits appreciated. Speech is soft and slow but clear. HEENT: Normocephalic, EOMI, oral mucosa tacky. Cardiovascular: Rate and rhythm are regular. No notable murmur, rub, or gallop. Respiratory: Lungs clear to auscultation bilaterally. Respirations even and non-labored. Tolerating room air. Abdomen: Soft, non-tender, non-distended, bowel sounds present. Extremities: Peripheral pulses intact. No edema or pain to palpation. DS: Data Data Completed and Pending Labs on day of discharge: Last Vital Signs Temp 98.3 F 03/22/21 14:00 Pulse 54 L 03/22/21 14:00 Resp 16 03/22/21 14:00 BP 107/63 03/22/21 14:00 Pulse Ox 93 03/22/21 14:00 ITS Impressions Abdomen/Pelvis CT 03/20/21 11:20 IMPRESSION: 1. Biliary stents in expected position. Pneumobilia of the left hepatic lobe unchanged. 2: Fusiform infrarenal abdominal aortic aneurysm measuring 3.4 x 3.1 cm greatest axial dimension. Extensive atherosclerosis with moderate-severe stenosis of the iliac arteries. 3: Right renal atrophy. Right internal ureteral stent in expected position. Chest X-Ray 03/20/21 13:18 Impression: 1: No acute cardiopulmonary disease. Retrograde
== END 2021-03-22 15:50 | disposition home or self-care (01) ==
LOC: ANHED 16:27 → ANH3MEDSUR 16:44
PROVIDERS: Emergency Medicine Emergency Medical Services; Physician Assistant; Urology; Admitting Provider Family Medicine; Emergency Provider Emergency Medicine; PCP Family Medicine; Visit Provider Internal Medicine
PROC: (CPT 52352; principal; 2021-03-21 12:15)
DX: N13.5 Crossing vessel and stricture of ureter without hydronephrosis (principal); R10.9 Unspecified abdominal pain; K86.1 Other chronic pancreatitis; N13.1 Hydronephrosis with ureteral stricture, not elsewhere classified; I25.10 Atherosclerotic heart disease of native coronary artery without angina pectoris; K21.9 Gastro-esophageal reflux disease without esophagitis; E78.5 Hyperlipidemia, unspecified; M32.9 Systemic lupus erythematosus, unspecified; M19.90 Unspecified osteoarthritis, unspecified site; M81.0 Age-related osteoporosis without current pathological fracture; I10 Essential (primary) hypertension; I25.2 Old myocardial infarction; F41.9 Anxiety disorder, unspecified; F11.90 Opioid use, unspecified, uncomplicated; Z85.828 Personal history of other malignant neoplasm of skin; Z98.42 Cataract extraction status, left eye; Z86.718 Personal history of other venous thrombosis and embolism; Z98.41 Cataract extraction status, right eye; Z90.710 Acquired absence of both cervix and uterus; Z95.5 Presence of coronary angioplasty implant and graft; Z87.891 Personal history of nicotine dependence
CPT/HCPCS: 52332; 36415; 51701; 71045; 74176; 74420; 80048; 80053; 81001; 83690; 83735; 85025; 85027; 96361; 96374; 96375; 96376; 99285; A9270; C1726; C1769; C1887; C2617; G0378; J0360; J1100; J1630; J1885; J2270; J2405; J2704; J3010; J3475; J7030; J7040; J7120; Q9966

== ENCOUNTER 2021-08-23 16:10 | Emergency (ER) | payer MEDICARE, SELFPAY | END 2021-08-24 03:17 | disposition left against medical advice (07) | PROVIDERS: PCP Family Medicine | DX: Z53.21 Procedure and treatment not carried out due to patient leaving prior to being seen by health care provider (principal) | CPT/HCPCS: 99199 ==

== ENCOUNTER 2021-08-26 11:41 | Emergency (ER) | payer MEDICARE, SELFPAY ==
[2021-08-26] VITALS (20 sets, daily range): BP systolic 146–207; BP diastolic 77–125; PULSE 66–82; RESP 12–20; TEMP 36.9; O2SAT 93–98
--- NOTE | ~2021-08-26 | CT_ITS ---
EXAMINATION: CT abdomen pelvis w con DATE: 08/26/2021 14:38 INDICATION: Generalized abdominal pain. Nausea and vomiting. TECHNIQUE: Computed tomography (CT) of the abdomen and pelvis was performed with 100 mL Omnipaque 350 intravenous contrast. Automated exposure control and iterative reconstruction technique were employe d. The dose-length product was 205.85 mGy-cm. COMPARISON: CT abdomen and pelvis 03/20/2021 FINDINGS: The visualized portions of the lung bases demonstrate minimal atelectasis. Calcified right lung nodules are consistent with old granulomatous disease. No pleural effusion. The heart size is no rmal. No pericardial effusion. There are coronary artery calcifications. The liver demonstrates moder ate biliary duct dilatation and pneumobilia. There is a metal stent in the common duct. There are 2 s tents within the larger stent. There is atrophy of the pancreas. There is dilatation of main pancreat ic duct. The gallbladder is absent. The spleen and adrenal glands are normal. There is moderate atrop hy of right kidney. There is moderate right hydronephrosis and hydroureter. There is a right internal ureteral stent in expected position. The bladder is distended. There are cysts in left kidney measur ing up to 10 mm. There is mild left hydronephrosis and hydroureter. The appendix is not visualized. T here are no pathologically enlarged lymph nodes. There is no free intraperitoneal fluid. There is florian cified atherosclerosis of the aorta and many of the other arteries. There is a 4.0 cm fusiform aneury sm of infrarenal aorta. There is moderate stenosis of the origins of the common iliac arteries. There is moderate stenosis of right common femoral artery. There is moderate stenosis of celiac axis and m ild stenosis of superior mesenteric artery. There is moderate stenosis of left renal artery and sever e stenosis of right renal artery. There is mild lumbar spondylosis. IMPRESSION: 1. Chronic moderate intrahepatic biliary duct dilatation with biliary stents in expected positions. 2. Stable moderate right hydronephrosis and hydroureter with moderate atrophy of right kidney and rig ht internal ureteral stent in expected position. 3. Markedly distended bladder with mild left hydronephrosis and hydroureter. 4. Arterial occlusive disease. 5. Stable 4.0 cm fusiform aneurysm of infrarenal aorta. 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 Chronic moderate intrahepatic biliary duct dilatation with biliary stents in expected positions. 2. Stable moderate right hydronephrosis and hydroureter with moderate atrophy o f right kidney and right internal ureteral stent in expected position. 3. Markedly distended bladder with mild left hydronephrosis and hydroureter. 4. Arterial occlusive disease. 5. Stable 4.0 cm fusiform aneurysm of infrarenal aorta.
[2021-08-26 12:51] LABS: Basophils Percent Auto 0.3 % (0.2-1.2); Eosinophils Absolute Auto 0.1 K/mm3 (0-0.3); Eosinophils Percent Auto 1.9 % (0-4.4); Hemoglobin 14.3 g/dL (12.0-15.0); Immature Granulocyte Absolute 0.02 K/mm3 (0.00-0.031); Immature Granulocyte Percent A 0.3 % (0-0.5); Lymphocytes Absolute Auto 1.01 K/mm3 (0.9-3.2); Lymphocytes Percent Auto 17.1 % (18.3-44.2); Mean Corpuscular HGB Conc 34.9 g/dl (32-36); Mean Corpuscular Hemoglobin 30.7 pg (26-34); Mean Platelet Volume 9.7 fl (7.4-10.4); Monocytes Absolute Auto 0.6 K/mm3 (0.1-0.6); Monocytes Percent Auto 10.6 % (2.6-8.5); Neutrophils Absolute Auto 4.1 K/mm3 (1.3-6.7); Neutrophils Percent Auto 69.8 % (45.5-73.1); Platelet Count Result 144 k/mm3 (150-375); Red Blood Count 4.66 M/mm3 (4.2-5.4); Red Cell Distribution Width 12.5 % (11.5-14.5); White Blood Count 5.9 K/mm3 (4.5-10.0)
[2021-08-26 13:00] LABS: Add Urine Microscopic? YES; Appearance Urine Clear (Clear); Bilirubin Urine Negative (Negative); Blood Urine 1+ (Negative); Color Urine Straw (Yellow); Glucose Urine UA Negative (Negative); Ketones Urine Negative (Negative); Leukocyte Esterase Ur Trace LEU/UL (Negative); Nitrate Urine Negative (Negative); Protein Urine Negative (Negative); Specific Grav Ur 1.005 (1.001-1.035); Squamous Epithelial Cell Urine Rare /hpf (Few); Urobilinogen Urine Negative mg/dL (<2.0)
[2021-08-26 13:05] LABS: Alanine Aminotransferase 19 U/L (4-35); Albumin Level 4.6 g/dL (3.5-5.1); Alkaline Phosphatase 79 U/L (38-126); Anion Gap 7 mmol/L (8-16); Aspartate Amino Transferase 32 U/L (14-36); Bilirubin,Total 0.6 mg/dL (0.2-1.3); Blood Urea Nitrogen 30 mg/dL (7-17); Calcium 9.8 mg/dL (8.4-10.2); Carbon Dioxide 37 mmol/L (22-30); Chloride 85 mmol/L (98-107); Estimated Glomerular Filt Rate > 60; Glucose 123 mg/dL (65-110); Lipase 18 U/L (23-300); Potassium 3.3 mmol/L (3.4-5.0); Sodium 129 mmol/L (137-145)
[2021-08-26] MEDS: SODIUM CHLORIDE 0.9% IV 1,000 ML 999 ML IV CONT (13:24)
[2021-08-26] MEDS: ONDANSETRON INJ 4 MG/2 ML VIAL IV PUSH (13:24)
--- NOTE | 2021-08-26 14:02 | ED.GENADULT ---
HPI - General Adult General Chief complaint: Nausea/Vomiting/Diarrhea Stated complaint: vomiting Time Seen by Provider: 08/26/21 13:09 Source: patient History of Present Illness HPI narrative: Patient is 86 y/o female complaining of nausea and vomiting starting 4 days ago. She describes her vomit as some yellowish liquid. She vomited 3 times today. There is no known alleviating or exacerbating factor. She also has some abdominal pain. Related Data Home Medications Medication Instructions Recorded Confirmed Creon 3 cap PO TIDWM 10/15/20 03/20/21 atorvastatin 20 mg PO DAILY 10/15/20 03/20/21 carvedilol 25 mg PO BID 10/15/20 03/20/21 lisinopril 5 mg PO DAILY 10/15/20 03/20/21 pantoprazole 40 mg PO DAILY 10/15/20 03/20/21 aspirin 81 mg PO DAILY 03/20/21 03/20/21 dicyclomine 20 mg PO QID PRN 03/20/21 03/20/21 duloxetine 30 mg PO DAILY 03/20/21 03/20/21 fluticasone propionate [Allergy 2 spray NASAL DAILY 03/20/21 03/20/21 Relief (fluticasone)] meclizine 12.5 mg PO BID PRN 03/20/21 03/20/21 nitroglycerin [Nitrostat] 0.4 mg SUBLINGUAL Q5M PRN 03/20/21 03/20/21 sodium bicarbonate 1,300 mg PO DAILY 03/20/21 03/20/21 Allergies Allergy/AdvReac Type Severity Reaction Status Date / Time meperidine Allergy Mild (DEMEROL) Verified 08/26/21 12:03 LEGS JERKING , FEELING FUNNY azathioprine Allergy Unknown Verified 08/26/21 12:03 Review of Systems Constitutional: Constitutional: Denies chills, Denies fever(s), Denies headache(s) and Denies weakness Eyes: Eyes: Denies blurry vision ENT: Denies headache(s) and Denies neck pain Cardiovascular: Cardiovascular: Denies chest pain and Denies dyspnea Respiratory: Respiratory: Denies cough and Denies dyspnea Gastrointestinal: Gastrointestinal: Reports abdominal pain, Denies diarrhea, Reports nausea and Reports vomiting Genitourinary: Genitourinary: Denies hematuria and Denies dysuria Musculoskeletal: Musculoskeletal: Denies back pain and Denies neck pain Neurologic: Denies headache(s) and Denies weakness [facility] Past Medical History Medical History Anxiety Arthritis CAD (coronary artery disease) With 3 cardiac stents Chronic pancreatitis DDD (degenerative disc disease) DVT (deep venous thrombosis) Left arm and 2009 Fibroids GERD (gastroesophageal reflux disease) History of chronic pancreatitis Due to autoimmune disease HLD (hyperlipidemia) [place] (hard of hearing) HTN (hypertension), malignant Hydronephrosis Chronic Hydronephrosis Lupus (systemic lupus erythematosus) Myocardial infarction Near syncope Orthostatic hypotension Osteoporosis Presence of pancreatic duct stent Skin cancer Status post resection UTI (urinary tract infection) Surgical History Surgical History H/O bilateral cataract extraction H/O cystoscopy H/O: hysterectomy History of back surgery History of biliary duct stent placement Two thousand five performed at [facility] History of cardiac catheterization History of coronary artery stent placement 3 cardiac stents History of urethral stent Family History Family History Father Family history of tuberculosis Mother Acute myocardial infarction Grandparent Cerebrovascular accident Sibling Carcinoma of colon Family history of Alzheimer's disease DVT prophylaxis Breast cancer Sister who is still living Son Diabetes mellitus Social History Social History Social History: The patient lives in her own home. Her son resides with her. She is and has 4 children (2 boys and 2 girls). 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 She used to smoke a pack of cigarettes per day for 50 years but quit smoking in 2008. She used to like to drink alcohol on occasion and in moderation but had to stop
--- NOTE | 2021-08-26 14:10 | PC.NURSE ---
ERP ordering medication for HTN.
[2021-08-26] MEDS: LABETALOL HCL INJ 100 MG/20 ML VIAL 20 MG IV PUSH (14:13)
--- NOTE | 2021-08-26 14:25 | PC.NURSE ---
Pt to radiology.
[2021-08-26] MEDS: ACETAMINOPHEN/CODEINE (*CRX) 300/30 MG TABLET 1 TAB PO (15:40)
[2021-08-26] MEDS: KETOROLAC 15 MG/ML VIAL (*BKC) IV PUSH (15:41)
--- NOTE | 2021-08-26 17:47 | PC.NURSE ---
BP 188/109. ERP discussed HTN with pt. Pt states he BP is always elevated when in the hospital and at doctors appointments. Pt states her BP always returns to normal when she goes home. Pt declines any further treatment or evaluation of BP at this time. Pt reports she will continue to monitor at home and take all medications as prescribed. Pt comfortable with discharge home.
[2021-08-26] MEDS: POTASSIUM CHLORIDE 20 MEQ TABLET PO (17:52)
== END 2021-08-26 18:03 | disposition home or self-care (01) ==
PROVIDERS: Emergency Medicine; Emergency Provider Emergency Medicine; PCP Family Medicine
DX: R11.2 Nausea with vomiting, unspecified (principal); I10 Essential (primary) hypertension; F41.9 Anxiety disorder, unspecified; M19.90 Unspecified osteoarthritis, unspecified site; I25.10 Atherosclerotic heart disease of native coronary artery without angina pectoris; K21.9 Gastro-esophageal reflux disease without esophagitis; E78.5 Hyperlipidemia, unspecified; I25.2 Old myocardial infarction; M32.9 Systemic lupus erythematosus, unspecified
CPT/HCPCS: 36415; 74177; 80053; 81001; 83690; 85025; 96361; 96374; 96375; 99284; A9270; J1885; J2405; J7030; Q9967

== ENCOUNTER 2021-12-09 10:35 | Emergency (ER) | payer MEDICARE, SELFPAY ==
[2021-12-09] VITALS (7 sets, daily range): BP systolic 142–223; BP diastolic 78–131; PULSE 78–148; RESP 14–22; TEMP 36.4; O2SAT 98–99
--- NOTE | ~2021-12-09 | CT_ITS ---
EXAMINATION: CT brain wo con EXAM DATE: 12/09/2021 12:55 INDICATION: Fell yesterday, blood coming from year. TECHNIQUE: Spiral CT of the head was performed without contrast. Axial, coronal and sagittal images were reviewed. The dose-length product (DLP) for this examination was 605.33 mGy-cm. The exposure w as tailored according to patient size, and iterative reconstruction (ASIR) was used as additional dos e reduction technique. Comparison is made to prior examination from 08/22/2019. FINDINGS: There is no acute intraparenchymal hemorrhage. No evidence of intraparenchymal brain mass lesion. No evidence of acute infarction. Please note that initial head CT has limited sensitivity f or small or acute infarctions. There is moderate periventricular and subcortical hypodensity, nonspec ific but probably related to small vessel ischemic disease. There is mild to moderate prominence of the sulci and ventricles related to cerebral atrophy. There is intracranial carotid arterioscleros is. There are no extra-axial collections. There is no mass effect or midline shift. Patient has mireles d bilateral ocular lens surgery. Soft tissue is unremarkable. The visualized sinuses and mastoid ai r cells are well aerated. Also, no evidence of middle ear or external auditory canal fluid. IMPRESSION: 1. No acute intracranial findings. 2. Chronic age related findings. Reviewed, dictated and finalized at location A. [employer]O EQUIPMENT SALESPERSON
--- NOTE | 2021-12-09 10:52 | ECG_ITS ---
Measurements Intervals [place] Rate: 85 P: 55 KS: 151 QRS: -66 QRSD: 116 T: 0 QT: 236 QTc: 281 Interpretive Statements SINUS RHYTHM WITH SINUS ARRHYTHMIA RIGHT VENTRICULAR CONDUCTION DELAY LEFT ANTERIOR FASCICULAR BLOCK VOLTAGE CRITERIA FOR LVH POSSIBLE ANTEROSEPTAL MYOCARDIAL INFARCTION , OF INDETERMINATE AGE Electronically Signed On 12-09-2021 11:31:09 IT SECURITY ARCHITECT by Armen Patel M.D.
[2021-12-09 11:03] LABS: Basophils Percent Auto 0.3 % (0.2-1.2); Eosinophils Absolute Auto 0.1 K/mm3 (0-0.3); Hematocrit 43.9 % (37.0-47.0); Immature Granulocyte Absolute 0.02 K/mm3 (0.00-0.031); Immature Granulocyte Percent A 0.3 % (0-0.5); Lymphocytes Absolute Auto 1.47 K/mm3 (0.9-3.2); Lymphocytes Percent Auto 25.1 % (18.3-44.2); Mean Corpuscular HGB Conc 31.9 g/dl (32-36); Mean Corpuscular Hemoglobin 30.4 pg (26-34); Mean Corpuscular Volume 95.2 fl (80-100); Mean Platelet Volume 8.8 fl (7.4-10.4); Monocytes Absolute Auto 0.5 K/mm3 (0.1-0.6); Neutrophils Absolute Auto 3.8 K/mm3 (1.3-6.7); Neutrophils Percent Auto 64.3 % (45.5-73.1); Platelet Count Result 241 k/mm3 (150-375); Red Blood Count 4.61 M/mm3 (4.2-5.4); Red Cell Distribution Width 13.8 % (11.5-14.5); White Blood Count 5.9 K/mm3 (4.5-10.0)
[2021-12-09 11:31] LABS: Alanine Aminotransferase 28 U/L (4-35); Albumin Level 4.8 g/dL (3.5-5.1); Alkaline Phosphatase 107 U/L (38-126); Anion Gap 9 mmol/L (8-16); Aspartate Amino Transferase 40 U/L (14-36); Bilirubin,Total 0.6 mg/dL (0.2-1.3); Blood Urea Nitrogen 30 mg/dL (7-17); Calcium 9.4 mg/dL (8.4-10.2); Carbon Dioxide 29 mmol/L (22-30); Chloride 101 mmol/L (98-107); Estimated CRCL calculation 42 ml/min; Estimated Glomerular Filt Rate > 60; Glucose 110 mg/dL (65-110); Potassium 3.8 mmol/L (3.4-5.0); Sodium 139 mmol/L (137-145)
--- NOTE | 2021-12-09 12:38 | ED.FALL ---
HPI - Fall General Chief Complaint: Fall Stated Complaint: altered, fall Time Seen by Provider: 12/09/21 12:14 Source: patient Mode of arrival: ambulatory Limitations: no limitations History of Present Illness HPI Narrative: Patient is 86 years old white female lives with her son, got out of bed yesterday noon walking towards the door and felt something wrong with her brain and fell landed on the left knee. Patient denies head injury. Patient denies any fever, chills, nausea, vomiting, diarrhea, constipation, chest pain, shortness of breath, headache or loss of consciousness. Related Data Home Medications Medication Instructions Recorded Confirmed Creon 3 cap PO TIDWM 10/15/20 03/20/21 atorvastatin 20 mg PO DAILY 10/15/20 03/20/21 carvedilol 25 mg PO BID 10/15/20 03/20/21 lisinopril 5 mg PO DAILY 10/15/20 03/20/21 pantoprazole 40 mg PO DAILY 10/15/20 03/20/21 aspirin 81 mg PO DAILY 03/20/21 03/20/21 dicyclomine 20 mg PO QID PRN 03/20/21 03/20/21 duloxetine 30 mg PO DAILY 03/20/21 03/20/21 fluticasone propionate [Allergy 2 spray NASAL DAILY 03/20/21 03/20/21 Relief (fluticasone)] meclizine 12.5 mg PO BID PRN 03/20/21 03/20/21 nitroglycerin [Nitrostat] 0.4 mg SUBLINGUAL Q5M PRN 03/20/21 03/20/21 sodium bicarbonate 1,300 mg PO DAILY 03/20/21 03/20/21 Allergies Allergy/AdvReac Type Severity Reaction Status Date / Time meperidine Allergy Mild (DEMEROL) Verified 08/26/21 12:03 LEGS JERKING , FEELING FUNNY azathioprine Allergy Unknown Verified 08/26/21 12:03 Review of Systems Review of Systems: CONSTITUTIONAL: Denies fever, chills, or sweats. EYES: Denies visual changes, redness, or discharge. ENT: Denies rhinorrhea, congestion, sore throat, or otalgia. CARDIOVASCULAR: Denies chest pain, palpitations, or edema. RESPIRATORY: Denies cough or dyspnea. GASTROINTESTINAL: Denies abdominal pain, nausea, vomiting, or diarrhea. GENITOURINARY: Denies dysuria or hematuria. SKIN: Denies rash or itching. MUSCULOSKELETAL: Denies back pain, joint pain, or myalgia. NEUROLOGIC: Denies headache, numbness, or weakness. PSYCHIATRIC: Denies anxiety or depression. PENDING SALE TO [facility] Past Medical History Medical History Anxiety Arthritis CAD (coronary artery disease) With 3 cardiac stents Chronic pancreatitis DDD (degenerative disc disease) DVT (deep venous thrombosis) Left arm and 2009 Fibroids GERD (gastroesophageal reflux disease) History of chronic pancreatitis Due to autoimmune disease HLD (hyperlipidemia) [place] (hard of hearing) HTN (hypertension), malignant Hydronephrosis Chronic Hydronephrosis Lupus (systemic lupus erythematosus) Myocardial infarction Near syncope Orthostatic hypotension Osteoporosis Presence of pancreatic duct stent Skin cancer Status post resection UTI (urinary tract infection) Surgical History Surgical History H/O bilateral cataract extraction H/O cystoscopy H/O: hysterectomy History of back surgery History of biliary duct stent placement Two thousand five performed at [facility] History of cardiac catheterization History of coronary artery stent placement 3 cardiac stents History of urethral stent Family History Family History Father Family history of tuberculosis Mother Acute myocardial infarction Grandparent Cerebrovascular accident Sibling Carcinoma of colon Family history of Alzheimer's disease DVT prophylaxis Breast cancer Sister who is still living Son Diabetes mellitus Social History Social History Social History: The patient lives in her own home. Her son resides with her. She is and has 4 children (2 boys and 2 girls). 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 She used to smoke a pack of cigarettes per day for 50 years but
[2021-12-09 13:23] LABS: Troponin I < 0.012 ng/mL (0.000-0.034)
[2021-12-09 13:25] LABS: Add Urine Microscopic? YES; Appearance Urine Clear (Clear); Bilirubin Urine Negative (Negative); Blood Urine 1+ (Negative); Color Urine Colorless (Yellow); Glucose Urine UA Negative (Negative); Ketones Urine Negative (Negative); Leukocyte Esterase Ur Negative LEU/UL (Negative); Nitrate Urine Negative (Negative); Protein Urine Negative (Negative); Specific Grav Ur 1.006 (1.001-1.035); Urobilinogen Urine Negative mg/dL (<2.0); WBC Urine 0-3 /hpf
[2021-12-09] MEDS: HYDROcodone/acetaminophen (*CRX) 5-325 MG TABLET 1 TAB PO (13:39)
== END 2021-12-09 15:59 | disposition home or self-care (01) ==
PROVIDERS: Emergency Provider Emergency Medicine; PCP Family Medicine
DX: S80.02XA Contusion of left knee, initial encounter (principal); I25.10 Atherosclerotic heart disease of native coronary artery without angina pectoris; K86.1 Other chronic pancreatitis; E78.5 Hyperlipidemia, unspecified; I10 Essential (primary) hypertension; I25.2 Old myocardial infarction; M32.9 Systemic lupus erythematosus, unspecified; M81.0 Age-related osteoporosis without current pathological fracture; M19.90 Unspecified osteoarthritis, unspecified site; N13.30 Unspecified hydronephrosis; K21.9 Gastro-esophageal reflux disease without esophagitis; Z87.440 Personal history of urinary (tract) infections; Z85.828 Personal history of other malignant neoplasm of skin; Z86.718 Personal history of other venous thrombosis and embolism; Z79.82 Long term (current) use of aspirin; Z98.42 Cataract extraction status, left eye; Z98.41 Cataract extraction status, right eye; Z95.5 Presence of coronary angioplasty implant and graft; Z87.891 Personal history of nicotine dependence; I45.9 Conduction disorder, unspecified; I44.4 Left anterior fascicular block; R94.31 Abnormal electrocardiogram [ECG] [EKG]; W18.39XA Other fall on same level, initial encounter
CPT/HCPCS: 36415; 70450; 80053; 81001; 84443; 84484; 85025; 93005; 99284; A9270

== ENCOUNTER 2022-03-31 22:02 | Inpatient (IN) | payer MEDICARE, SELFPAY ==
--- NOTE | ~2022-03-31 | CT_ITS ---
EXAMINATION: CTA chest PE abdomen pel DATE: 04/04/2022 14:17 INDICATION: w/ PE protocol. For hypoxia and abdominal pain TECHNIQUE: Computed tomography angiography (CTA) of the chest abdomen and pelvis was performed with 1 00 mL Omnipaque-350 intravenous contrast timed to evaluate the pulmonary arteries. Coronal maximum in tensity projection 3D-reconstructions were created by the technologist. The dose-length product (DLP) was 706.64 mGy-cm. Automated exposure control and iterative reconstruction technique were employed. COMPARISON: 08/26/2021. FINDINGS: Study quality: Adequate. Pulmonary arteries: No acute pulmonary emboli detected. Very small eccentric filling defect versus ar tifact in an right upper lobe segmental artery. Dilated pulmonary arteries. Thoracic aorta: Diffusely ectatic, descending aorta measures up to 4.3 cm in diameter. Heavy arch florian cification. Lung parenchyma and airways: Senescent change. Bibasilar atelectasis. Thoracic inlet, axillae and chest wall: Unremarkable. Mediastinum: Normal. Heart and pericardium: Mild cardiomegaly. No pericardial effusion. Coronary artery calcifications: Heavy. Pleura: Small volume bilateral fluid collections. Upper abdomen: No significant finding. Thoracic bones: No acute osseous finding. Chronic compression deformity of a midthoracic vertebral ruddy dy. Abdomen/pelvis: Liver: Normal. Biliary/Gallbladder: Gallbladder is absent. Pneumobilia, unchanged. Intrahepatic biliary duct dilatio n, unchanged. Biliary stents, in good position. Pancreas: Atrophy. Duct dilation in the pancreatic head. Spleen: Normal. Adrenals:No mass. Kidneys: Right renal atrophy. Right ureteral stent in good position. Increased dilation of the right collecting system. Mild left hydronephrosis, unchanged. Left renal cyst and subcentimeter hypodensity , too small to characterize but likely represent cysts. GI tract: No small or large bowel dilation. Distal esophageal and gastric wall edema slightly decreas ed since the prior study. Slightly increased dilation of the first and second portion of the duodenum . Appendix not visualized. Rectum is dilated to 6.3 cm, by formed stool Mesentery/Peritoneum: No ascites, mass, or free air. Retroperitoneum: No mass. Atherosclerotic abdominal aortic and/or arterial calcifications. Intramural thrombus in the lower thorax/upper abdomen and in the distal abdominal aorta. Grossly stable infrare nal abdominal aortic aneurysm with intramural thrombus and thrombus extending beyond the confines of calcified wall. Severe bilateral common iliac stenoses. Pelvis: Uterus not visualized. Markedly dilated urinary bladder, without wall thickening. Distal uret eral stent pigtail in good position. Soft Tissues: Mild body wall edema. Gas and fluid about the left hip. Left hip skin leonid. Abdominopelvic bones: Partially visualized left hip arthroplasty. No acute osseous finding. IMPRESSION: Small bilateral pleural effusions. Increased right hydronephrosis may reflect right ureteral stent oc clusion. Persistent marked dilation of the urinary bladder, without wall thickening. Possible mild fe florian impaction. Reviewed, dictated and finalized at location K. IMPRESSION: Small bilateral pleural effusions. Increased right hydronephrosis may reflect r ight ureteral stent occlusion. Persistent marked dilation of the urinary bladde r, without wall thickening. Possible mild fecal impaction.
--- NOTE | ~2022-03-31 | XR_ITS ---
EXAMINATION: XR hip LT min 2V DATE: 04/02/2022 14:29 INDICATION: Stopped evaluation following left hip hemiarthroplasty placement. TECHNIQUE: Anteroposterior and cross-table lateral views of the left hip were obtained. COMPARISON: None. FINDINGS: Bipolar type left hip arthroplasty which appears well seated in near-anatomic alignment. No fracture. Expected soft tissue gas at the operative bed and overlying skin leonid lateral to the left hip. Pa rtially visualized right internal ureteral stent with loops formed in the bladder and approximately p artially visualized in the region of the left renal pelvis. There are few surgical clips in the right lower quadrant projecting lateral to L3 and L4. Mild to moderate osteoarthritis at the partially vis ualized right hip. IMPRESSION: 1. Bipolar type left hip hemiarthroplasty in near-anatomic alignment, negative for postoperative purp oses.. Reviewed, dictated and finalized at location A. IMPRESSION: 1. Bipolar type left hip hemiarthroplasty in near-anatomic alignment, negative for postoperative purposes..
--- NOTE | ~2022-03-31 | CT_ITS ---
EXAMINATION: CT lumbar spine wo con DATE: 03/31/2022 23:57 INDICATION: Low back pain after fall TECHNIQUE: Computed tomography (CT) of the lumbar spine was performed without intravenous contrast. T he dose-length product was 283.82 mGy-cm. Automated exposure control and iterative reconstruction braxton hnique were employed. COMPARISON: None FINDINGS: Osteopenia. No acute fracture or traumatic malalignment. Mild dextrocurvature of the lumbar spine. There is a right internal ureteral stent present, partially visualized. There is degenerative disc disease at L5-S1. There is mild multilevel facet hypertrophy. No evidence for spondylolisthesis . There is abdominal aortic aneurysm measuring 3.2 cm. There is stenosis of the celiac axis, SMA and renal arteries. There is a biliary stent present. IMPRESSION: 1. No acute lumbar spine fracture. Reviewed, dictated and finalized at location A.
--- NOTE | ~2022-03-31 | XR_ITS ---
EXAMINATION: XR retrograde pyelo w/stent RT DATE: 04/06/2022 7:35 CDT INDICATION: RIGHT STENT EXCHANGE/RETRO . TECHNIQUE: 8 fluoroscopic images of the right pelvis and right abdomen were obtained during retrograd e pyelography and stent exchange performed by the surgeon. I was not present in the operating room. F luoroscopy exposure time was 70 seconds. Cumulative dose was 0.75386 mGy2. COMPARISON: CT 04/04/2022. FINDINGS: Contrast fills a mildly dilated right ureter, with numerous air bubbles followed by wire access urete ral stent placement, in good position. IMPRESSION: Fluoroscopic documentation of retrograde pyelography and right stent exchange. Please refer to the op erative note for complete procedural details. Reviewed, dictated and finalized at location K. IMPRESSION: Fluoroscopic documentation of retrograde pyelography and right stent exchange. Please refer to the operative note for complete procedural details.
--- NOTE | ~2022-03-31 | XR_ITS ---
EXAMINATION: XR hip LT 2V w AP pelvis DATE: 03/31/2022 23:21 INDICATION: Left hip pain post fall TECHNIQUE: Anteroposterior view of the pelvis and anteroposterior and cross-table lateral views of th e left hip were obtained. COMPARISON: None. FINDINGS: Transcervical fracture of the left femur with 3 cm proximal migration and external rotation. The left femoral head remains normally centered in the left acetabulum with mild osteoarthritis. There is als o mild osteoarthritis at the right hip and bilateral sacroiliac joints right internal ureteral stent with distal loop formed in the bladder and proximal loop collimated beyond the cephalad margin of the [id number]. Surgical clips and the caudal aspect of a partially visualized biliary stent in the r ight lower quadrant. Phleboliths in the pelvis. Atherosclerotic calcifications in the bilateral proxi mal thighs. IMPRESSION: 1. Displaced left femoral transcervical fracture. Reviewed, dictated and finalized at location A.
--- NOTE | ~2022-03-31 | XR_ITS ---
EXAMINATION: XR chest 1V portable DATE: 03/31/2022 23:52 INDICATION: Fall with hip fracture. TECHNIQUE: frontal view of the chest was obtained. COMPARISON: Chest radiograph dated 03/20/2021 FINDINGS: Atherosclerotic calcification is projected over the bilateral apices of lungs. Calcified nodule at th e right lower lung zone consistent with old granulomatous disease. No other airspace opacities, pulmo nary edema, pleural effusion or pneumothorax. Heart size normal. Diffuse atherosclerotic calcificatio n of the aorta . Moderate thoracic spondylosis. Proximal aspect of a partially visualized biliary travis nt projects of the right upper quadrant. IMPRESSION: 1. No acute cardiopulmonary disease. Reviewed, dictated and finalized at location A.
[2022-03-31 22:12] VITALS: BP 166/100; PULSE 66; RESP 18; TEMP 36.4; O2SAT 94
--- NOTE | 2022-03-31 22:33 | ED.FALL ---
HPI - Fall General Chief Complaint: Fall <MAHESH Jauregui Last Filed: 04/01/22 02:05> Stated Complaint: left hip deformity and pain s/p fall <MAHESH Jauregui Last Filed: 04/01/22 02:05> Time Seen by Provider: 03/31/22 22:24 <Nandini Ortega PA-C - Last Filed: 04/01/22 02:05> Source: patient and EMS <MAHESH Jauregui Last Filed: 04/01/22 02:05> Mode of arrival: EMS <MAHESH Jauregui Last Filed: 04/01/22 02:05> Limitations: no limitations <MAHESH Jauregui Last Filed: 04/01/22 02:05> History of Present Illness HPI Narrative: This is a 86-year-old female that presents to the emergency department after a ground-level fall today with left hip pain. Reports she slipped on the carpet in her room and fell onto her left hip. Reports pain in her left hip and low back. She did not hit her head or lose consciousness. She denies any prodromal symptoms. Denies numbness or weakness. <Nandini Ortega PA-C - Last Filed: 04/01/22 02:05> Related Data Home Medications: Home Medications Medication Instructions Recorded Confirmed atorvastatin 20 mg tablet 20 mg PO DAILY 10/15/20 04/01/22 carvedilol 25 mg tablet 25 mg PO BID 10/15/20 04/01/22 [id number] 1 cap PO PRN PRN with snacks 10/15/20 04/01/22 24,000-76,000-120,000 unit capsule,delayed rel (Creon) lisinopril 2.5 mg tablet 5 mg PO DAILY 10/15/20 04/01/22 pantoprazole 40 mg tablet,delayed 40 mg PO DAILY 10/15/20 04/01/22 release aspirin 81 mg chewable tablet 81 mg PO DAILY 03/20/21 04/01/22 duloxetine 30 mg capsule,delayed 30 mg PO DAILY 03/20/21 04/01/22 release nitroglycerin 0.4 mg sublingual 0.4 mg sublingual Q5M PRN Chest 03/20/21 04/01/22 tablet (Nitrostat) Pain [id number] 2 cap PO TIDWM 04/01/22 04/01/22 24,000-76,000-120,000 unit capsule,delayed rel (Creon) <Nandini Ortega PA-C - Last Filed: 04/01/22 02:05> Allergies/Adverse Reactions: Allergies Allergy/AdvReac Type Severity Reaction Status Date / Time meperidine Allergy Mild (DEMEROL) Verified 04/01/22 03:45 LEGS JERKING , FEELING FUNNY azathioprine Allergy Unknown Verified 04/01/22 03:45 <Nandini Ortega PA-C - Last Filed: 04/01/22 02:05> Review of Systems Review of Systems: CONSTITUTIONAL: Denies fever GASTROINTESTINAL: Denies vomiting MUSCULOSKELETAL: Reports back pain, joint pain, and myalgia. NEUROLOGIC: Denies numbness, or weakness. <Nandini Ortega PA-C - Last Filed: 04/01/22 02:05> All systems reviewed & are unremarkable except as noted in HPI and below <Nandini Ortega PA-C - Last Filed: 04/01/22 02:05> [facility] Past Medical History Medical History: Medical History Anxiety Arthritis CAD (coronary artery disease) With 3 cardiac stents Chronic pancreatitis DDD (degenerative disc disease) DVT (deep venous thrombosis) Left arm and 2009 Fibroids GERD (gastroesophageal reflux disease) History of chronic pancreatitis Due to autoimmune disease HLD (hyperlipidemia) [place] (hard of hearing) HTN (hypertension), malignant Hydronephrosis Chronic Hydronephrosis Lupus (systemic lupus erythematosus) Myocardial infarction Near syncope Orthostatic hypotension Osteoporosis Presence of pancreatic duct stent Skin cancer Status post resection UTI (urinary tract infection) <Nandini Ortega PA-C - Last Filed: 04/01/22 02:05> Surgical History Surgical History: Surgical History H/O bilateral cataract extraction H/O cystoscopy H/O: hysterectomy History of back surgery History of biliary duct stent placement Two thousand five performed at [facility] History of cardiac catheterization History of coronary artery stent placement 3 cardiac stents History of urethral stent <Nandini Ortega PA-C - Last Filed: 04/01/22 02:05> Family Histo
[2022-03-31] MEDS: MORPHINE SULFATE (*CRX) 2 MG/ML INJ IV PUSH (23:38)
[2022-04-01] VITALS (13 sets, daily range): BP systolic 92–153; BP diastolic 64–117; PULSE 63–85; RESP 18–22; TEMP 35.7–36.8; O2SAT 95–99; BMI 20.7
--- NOTE | 2022-04-01 | ECHO_ITS ---
Patient Info Name: Bianca Pham Layman Age: 86 years : 1935 Gender: Female Ht: 62 in Wt: 113 lbs BSA: 1.50 m2 HR: 71 bpm BP: 113 / 71 mmHg Heart Rhythm: Sinus Rhythm Exam Date: 04/01/2022 2:12 PM Exam Location: [facility] Pulmonary Patient Status: Inpatient Admit Date: 04/01/2022 Staff Ordering Physician: Candelaria Cuba MD Critical Care Educator: Bhanu Payne RDCS, RT Attending Provider: Mariela Alexis PA-C Referring Physician: Rosa Elena MENDIOLA; Exam Type: CA echo doppler color flow Study Info Indications I50.9 - Heart failure, unspecified Complete two-dimensional, color flow and Doppler transthoracic echocardiogram is performed. Strain analysis performed. Summary 1. Complete two-dimensional, color flow and Doppler transthoracic echocardiogram is performed. 2. Normal left ventricular size with mild concentric hypertrophy. Overall reasonable left ventricular systolic function, although the inferior septal and inferolateral segments are hypokinetic. Ejection fraction is 50-55%. Diastolic dysfunction grade 1 is present. Global longitudinal strain is-11% consistent with systolic dysfunction. 3. There is mild tricuspid valve regurgitation. 4. Moderate pulmonary hypertension, estimated pulmonary arterial systolic pressure is 50 mmHg. 5. Normal sinus rhythm. Left Ventricle Left ventricular chamber dimension is normal. Left ventricular systolic function is normal, estimated at 50-55%. There is mildly increased left ventricular wall thickness. Left ventricular septal wall motion is normal. The left ventricular diastolic function is grade I diastolic dysfunction. Global longitudinal strain is moderately elevated at -11 %. Right Ventricle Right ventricular chamber dimension is normal. Right ventricular systolic function is normal. Left Atria Left atrial chamber dimension is normal. Right Atria Right atrial chamber dimension is normal. Aortic Valve The aortic valve is trileaflet. There is no aortic valve sclerosis. There is no aortic valve stenosis. There is no aortic valve regurgitation. There is mild aortic valve calcification. Pulmonic Valve The pulmonic valve is normal. There is no pulmonic valve stenosis. There is no pulmonic regurgitation. Mitral Valve The mitral valve has normal leaflets. There is no mitral valve stenosis. There is no mitral valve regurgitation. Tricuspid Valve The tricuspid valve leaflets are normal. There is no significant tricuspid valve stenosis. There is mild tricuspid valve regurgitation. Moderate pulmonary hypertension, estimated pulmonary arterial systolic pressure is 50 mmHg. Pericardium/Pleural The pericardium appears normal. There is no pericardial effusion. Inferior Vena Cava Normal inferior vena cava with >50% collapse upon inspiration consistent with Empty right atrial pressure, 10 mmHg. Aorta The aortic root size at the sinus of Valsalva is normal. The prox ascending aorta size is normal. Left Ventricular Outflow Tract Name Value Normal LVOT 2D LVOT Diameter 1.9 cm LVOT Doppler LVOT Peak Gradient 5 mmHg
--- NOTE | 2022-04-01 | ECG_ITS ---
Measurements Intervals [place] Rate: 58 P: 60 SC: 156 QRS: -67 QRSD: 120 T: 259 QT: 520 QTc: 515 Interpretive Statements SINUS BRADYCARDIA RIGHT BUNDLE BRANCH BLOCK [120+ ms QRS DURATION, UPRIGHT V1, 40+ ms S IN I/aVL/V4/V5/V6] LEFT ANTERIOR FASCICULAR BLOCK [QRS AXIS <= -45, QR IN I, RS IN II] LEFT VENTRICULAR HYPERTROPHY AND ST-T CHANGE [VOLTAGE CRITERIA PLUS ST/T ABNORMALITY] POSSIBLE SEPTAL MYOCARDIAL INFARCTION , PROBABLY OLD DIFFUSE T-WAVE INVERSION, CONSIDER ANTEROLATERAL AND INFERIOR ISCHEMIA, NEW COMPARED TO THE PRIOR TRACING Electronically Signed On 04-01-2022 12:41:49 CDT by Candelaria Cuba M.D.
[2022-04-01 00:37] LABS: Basophils Percent Auto 0.4 % (0.2-1.2); Eosinophils Absolute Auto 0.1 K/mm3 (0-0.3); Eosinophils Percent Auto 0.7 % (0-4.4); Hematocrit 38.1 % (37.0-47.0); Hemoglobin 12.2 g/dL (12.0-15.0); Immature Granulocyte Absolute 0.04 K/mm3 (0.00-0.031); Immature Granulocyte Percent A 0.4 % (0-0.5); Lymphocytes Absolute Auto 0.65 K/mm3 (0.9-3.2); Lymphocytes Percent Auto 7.1 % (18.3-44.2); Mean Corpuscular Volume 93.8 fl (80-100); Monocytes Absolute Auto 0.6 K/mm3 (0.1-0.6); Monocytes Percent Auto 6.8 % (2.6-8.5); Neutrophils Absolute Auto 7.7 K/mm3 (1.3-6.7); Neutrophils Percent Auto 84.6 % (45.5-73.1); Platelet Count Result 170 k/mm3 (150-375); Red Blood Count 4.06 M/mm3 (4.2-5.4); Red Cell Distribution Width 12.7 % (11.5-14.5); White Blood Count 9.1 K/mm3 (4.5-10.0)
[2022-04-01 00:50] LABS: Anion Gap 5 mmol/L (8-16); Blood Urea Nitrogen 31 mg/dL (7-17); Calcium 8.6 mg/dL (8.4-10.2); Carbon Dioxide 26 mmol/L (22-30); Chloride 105 mmol/L (98-107); Estimated CRCL calculation 42 ml/min; Estimated Glomerular Filt Rate > 60; Glucose 147 mg/dL (65-110); Potassium 3.6 mmol/L (3.4-5.0); Sodium 136 mmol/L (137-145)
[2022-04-01] MEDS: MORPHINE SULFATE (*CRX) 2 MG/ML INJ IV PUSH (02:15)
--- NOTE | 2022-04-01 03:37 | ADMGEN ---
This patient, Bianca Adams, was admitted to 3 [facility] Surg Room 301-01. Patient/family oriented to hospital policies and general routines including ID bracelet, bed and alarms, visiting hours, pain management, procedures, bathroom and other care routines, personal items, smoking policy, room service/diet, and visiting hours. Information on how to activate the Rapid Response Team has been discussed. Patient/Family are encouraged to report perceived risks to care and to ask questions if they do not understand what they are told or what they should do.
[2022-04-01] MEDS: HYDROmorphone HCL INJ (*CRX) 1 MG/ML SYR 0.5 MG IV PUSH ×3 (04:40→20:08)
[2022-04-01] MEDS: HYDROcodone/acetaminophen (*CRX) 5-325 MG TABLET 1 TAB PO (04:40)
--- NOTE | 2022-04-01 08:06 | PM.CNOR ---
Assessment and Plan Assessment and plan (1) Closed fracture of neck of left femur: Qualifiers: Encounter type: initial encounter Qualified Code(s): S72.002A - Fracture of unspecified part of neck of left femur, initial encounter for closed fracture Code(s): S72.002A - Fracture of unspecified part of neck of left femur, initial encounter for closed fracture Status: Acute Assessment and Plan: left hip femoral neck fracture after fall last evening. Discussed nonoperative and operative treatment options with the patient. Risks and benefits of each as well as alternatives were reviewed. All of the patient's questions were answered. The risks of surgery reviewed including but not limited to: Neurovascular damage, wound complication, infection, blood clot, pulmonary embolus, stroke, myocardial infarction, and anesthetic risks up to and including . Continued pain and possible dysfunction were explained. Specific risks of the procedure including later recurrence of deformity. No guarantees were offered. If hardware used, discussed risk of failure/ breakage and possible need for removal. If complications occur, the patient understands the need for further treatment, possible further surgery. Patient verbalizes understanding and wishes to proceed. PLAN: Left hip bipolar hemiarthroplasty. PT/ INR ordered. Patient with history of coronary artery disease. Will proceed with surgery when medically stable. (2) Fall from ground level: Code(s): W18.30XA - Fall on same level, unspecified, initial encounter Status: Acute History of Present Illness HPI Consult date: 04/01/22 Requesting physician: Nandini Ortega PA-C Chief complaint: Left femoral neck fracture Narrative: 86-year-old woman independent ambulator at home fell last onto her left side. Complains of left hip pain and low back pain. Left hip fracture and admitted for further care. History of heart disease. Denies numbness or tingling. Is aware of herself and surroundings but does have some inappropriate answers including wanting to get out of bed and get ready to go. Review of Systems Constitutional: Constitutional: Denies chills, Denies fever(s), Denies headache(s) and Denies weakness Eyes: Eyes: Denies blurry vision ENT: Denies headache(s) and Denies neck pain Cardiovascular: Cardiovascular: Denies chest pain and Denies dyspnea Respiratory: Respiratory: Denies cough and Denies dyspnea Gastrointestinal: Gastrointestinal: Reports abdominal pain, Denies diarrhea, Reports nausea and Reports vomiting Genitourinary: Genitourinary: Denies hematuria and Denies dysuria Musculoskeletal: Musculoskeletal: Denies neck pain Neurologic: Denies headache(s) and Denies weakness [facility] Past Medical History Medical History Anxiety Arthritis CAD (coronary artery disease) With 3 cardiac stents Chronic pancreatitis DDD (degenerative disc disease) DVT (deep venous thrombosis) Left arm and 2009 Fibroids GERD (gastroesophageal reflux disease) History of chronic pancreatitis Due to autoimmune disease HLD (hyperlipidemia) [place] (hard of hearing) HTN (hypertension), malignant Hydronephrosis Chronic Hydronephrosis Lupus (systemic lupus erythematosus) Myocardial infarction Near syncope Orthostatic hypotension Osteoporosis Presence of pancreatic duct stent Skin cancer Status post resection UTI (urinary tract infection) Surgical History Surgical History H/O bilateral cataract extraction H/O cystoscopy H/O: hysterectomy History of back surgery History of biliary duct stent placement Two thousand five performed at [facility] History of cardiac catheterization History of coronary artery stent placement 3 cardiac stents History of urethral stent Family History Family History (Reviewed 04/01/22 @ 08:08 by Rodger Neumann,
[2022-04-01] MEDS: ATORVASTATIN 20 MG TABLET PO (08:56)
[2022-04-01] MEDS: carvediloL 25 MG TABLET PO ×2 (08:56→20:09)
[2022-04-01] MEDS: LIPASE/AMYLASE/PROTEASE 12,000 UNITS CAP 4 CAP PO ×2 (08:56→12:12)
[2022-04-01] MEDS: DULoxetine HCL 30 MG CAPSULE.DR PO (08:56)
[2022-04-01] MEDS: PANTOPRAZOLE 40 MG TABLET PO (08:56)
[2022-04-01] MEDS: lisinopriL 5 MG TABLET PO (08:56)
[2022-04-01 08:59] LABS: INR 1.1; Prothrombin Time 13.3 Seconds (11.1-14.7)
--- NOTE | 2022-04-01 10:15 | PM.IMHP ---
H&P: HPI History of Present Illness Date/Time: 04/01/22 10:15 Chief Complaint: fall Narrative: 86 yo female w/ hx of HTN, HLD, CAD, DVT, Lupus, [place], who presented to the hospital s/p ground level fall. Pt states she tripped on her carpet yesterday and landed on her left hip. No head trauma or loc. She continues to have severe L hip pain. Denies paraesthesias. She denies preceding symptoms including chest pain, palpitations, dizziness. Currently admits to some mild sob and is wearing 2L NC. She is currently A/Ox2, but has been receiving Dilaudid for the pain. She is also very hard of hearing. ER workup significant for L femoral fracture. Ortho was consulted from the ED. Pt admitted as inpatient status. Review of Systems Review of Systems: ROS unobtainable: Yes unobtainable due to mental status PMFSH Past Medical History Medical History (Updated 04/01/22 @ 10:28 by Mariela Alexis PA-C) Anxiety Arthritis CAD (coronary artery disease) With 3 cardiac stents Chronic pancreatitis DDD (degenerative disc disease) DVT (deep venous thrombosis) Left arm and 2009 Fibroids GERD (gastroesophageal reflux disease) History of chronic pancreatitis Due to autoimmune disease HLD (hyperlipidemia) [place] (hard of hearing) HTN (hypertension), malignant Hydronephrosis Chronic Hydronephrosis Lupus (systemic lupus erythematosus) Myocardial infarction Near syncope Orthostatic hypotension Osteoporosis Presence of pancreatic duct stent Skin cancer Status post resection UTI (urinary tract infection) Surgical History Surgical History H/O bilateral cataract extraction H/O cystoscopy H/O: hysterectomy History of back surgery History of biliary duct stent placement Two thousand five performed at [facility] History of cardiac catheterization History of coronary artery stent placement 3 cardiac stents History of urethral stent Family History Family History Father Family history of tuberculosis Mother Acute myocardial infarction Grandparent Cerebrovascular accident Sibling Carcinoma of colon Family history of Alzheimer's disease DVT prophylaxis Breast cancer Sister who is still living Son Diabetes mellitus Social History Social History (Updated 04/01/22 @ 10:25 by Mariela Alexis PA-C) Social History: 04/01/22 Pt wishes to be a full code The patient lives in her own home. Her son resides with her. She is and has 4 children (2 boys and 2 girls). 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 She used to smoke a pack of cigarettes per day for 50 years but quit smoking in 2008. She used to like to drink alcohol on occasion and in moderation but had to stop after she got pancreatitis. She is independent in activities of daily living. 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 Her daughter Jessenia is her durable power of document review attorney. Primary care physician is Dr. Kayode Lofton Smoking packs per day: 0.5 Smoking cigarettes per day: 10.0 Years smoked: 40 Smoking pack-years: 20.00 Smoking status: Former smoker Second hand tobacco smoke exposure: No Alcohol intake: former Substance use: never Substance use type: does not use Gender identity (if verbalized by the patient): Female Spiritual care concerns: No Agree to blood products: Yes Meds Home Medications and Allergies Home Medications Medication Instructions Recorded Confirmed Type atorvastatin 20 mg tablet 20 mg PO DAILY 10/15/20 04/01/22 History carvedilol 25 mg tablet 25 mg PO BID 10/15/20 04/01/22 History [id number] 1 cap PO PRN PRN with snacks 10/15/20 04/01/22 History 24,000-76,000-120,000 unit capsule,delayed rel (Creon) lisinopril 2.5 mg tablet 5 mg PO DAILY 10/15/20 04/01/22 History pantoprazole 40 mg tablet,delayed 40 mg PO DAILY
[2022-04-01 10:52] LABS: Troponin I < 0.012 ng/mL (0.000-0.034)
[2022-04-01] MEDS: HYDROcodone/acetaminophen (*CRX) 10-325 MG TABLET 1 TAB PO ×2 (12:12→20:08)
--- NOTE | 2022-04-01 17:39 | PM.CNCAR ---
Assessment and Plan Assessment and plan (1) Abnormal EKG: Code(s): R94.31 - Abnormal electrocardiogram [ECG] [EKG] Status: Acute Assessment and Plan: The patient presents with a fall and hip fracture requiring ORIF. Her EKG unfortunately shows diffuse T-wave inversion inferiorly and anterolaterally suggestive of an ischemic event. She is a poor historian, but denies any overt angina, and her daughter also states that she has not had any angina or heart problems for many years. She does have some shortness of breath but O2 saturations have been good. Reassuring that her troponin was normal, suggesting no acute coronary syndrome. EKG changes may be related to cardiac stress of her fall superimposed on known chronic CAD. In addition, it is reassuring that the echocardiogram showed good anterior apical systolic function. She does have some inferior wall hypokinesis which is not a surprise considering that the right coronary artery has had several procedures over the the last 14 years. I have requested a repeat EKG; I would be reassured if we saw some resolution of these changes. Spoke to daughter Jessenia; we do have concern about the patient's cardiac status. However, further evaluation (Lexiscan? Cardiac catheterization?) will delay needed surgery and may complicate the picture even further and add risk. She is aware that there is moderate risk involved of the planned surgery. Further recommendations pending review of repeat EKG. Continue carvedilol perioperatively (2) Pre-operative clearance: Code(s): Z01.818 - Encounter for other preprocedural examination Status: Acute Assessment and Plan: As above (3) CAD (coronary artery disease): Code(s): I25.10 - Atherosclerotic heart disease of [place] coronary artery without angina pectoris Status: Acute Assessment and Plan: History of NSTEMI he is and coronary stents from [id number]; cardiac status has been stable since then. (4) Closed fracture of neck of left femur: Qualifiers: Encounter type: initial encounter Qualified Code(s): S72.002A - Fracture of unspecified part of neck of left femur, initial encounter for closed fracture Code(s): S72.002A - Fracture of unspecified part of neck of left femur, initial encounter for closed fracture Status: Acute Assessment and Plan: Needs ORIF, possibly tomorrow. History of Present Illness History of Present Illness Consult date/time: 04/01/22 17:39 Reason For Visit: Left femoral neck fracture Narrative: Bianca Adams is an 86 y.o. female whom I was asked to see at the request of Tracy Crews, for my advice and opinion regarding her abnormal EKG, history of CAD, needing preoperative evaluation for left hip surgery, in consultation. She fell as she suffered a left hip fracture; no loss of consciousness. Her son Tay was nearby She also has history of hypertension, hyperlipidemia coronary disease, DVT, lupus, and memory loss. I have seen her intermittently in the past for her CAD. She had a non-STEMI in 2008 with a circumflex stent, and then in right coronary artery stent later the same year. In September 2012 she had acute coronary syndrome and a new right coronary stent was placed proximally to the 1st one. In September 2012 she had another stenosis of the mid RCA proximal to the prior stent and was we stented with another drug-eluting stent. She had a 70% stenosis of the 2nd diagonal and circumflex stent was widely patent at that time. She also has history of hypertension, hyperlipidemia, small AAA, renal artery stenosis, carotid stenosis (50-69% stenosis of the left ICA in 2013). She was last seen in our office in May 2020 with stable coronary disease. The patient is a poor historian but denies any recent chest pain or heart problems. She does complain of some SOB. Her daughter, Jessenia, states that she has not had any chest pain or 8 needed any
[2022-04-01] MEDS: SODIUM CHLORIDE 0.9% IV 1,000 ML 60 ML IV CONT (17:54)
[2022-04-01 19:52] LABS: Appearance Urine Slightly Cloudy (Clear); Bilirubin Urine 1+ (Negative); Blood Urine 3+ (Negative); Color Urine Yellow (Yellow); Glucose Urine UA Negative (Negative); Ketones Urine Negative (Negative); Leukocyte Esterase Ur Negative LEU/UL (Negative); Nitrate Urine Negative (Negative); Protein Urine 2+ mg/dL (Negative); Specific Grav Ur >= 1.030 (1.001-1.035); Urobilinogen Urine 0.2 mg/dL (<2.0); pH Urine 5.5 (5.0-9.0)
[2022-04-01 20:09] LABS: Bacteria Urine Trace /hpf; Mucus Urine Few /lpf; RBC Urine >75 /hpf (0-2); Squamous Epithelial Cell Urine Rare /hpf (Few)
[2022-04-01 20:12] LABS: Add Urine Microscopic? YES
[2022-04-02] VITALS (25 sets, daily range): BP systolic 93–223; BP diastolic 59–135; PULSE 60–104; RESP 14–30; TEMP 35.7–37; O2SAT 93–100
[2022-04-02] MEDS: HYDROmorphone HCL INJ (*CRX) 1 MG/ML SYR 0.5 MG IV PUSH (02:50)
[2022-04-02] MEDS: HYDROcodone/acetaminophen (*CRX) 10-325 MG TABLET 1 TAB PO ×2 (05:32→23:12)
--- NOTE | 2022-04-02 07:03 | WPDHPUPDATE1 ---
History and Physical Update Update Date/Time: 04/02/22 07:03 History and Physical has been reviewed, including an updated exam of the patient. There are NO changes in the patient's condition. Risks, benefits, and alternatives have been discussed and questions answered. Patient agrees to proceed with procedure.
[2022-04-02 07:08] LABS: Basophils Percent Auto 0.5 % (0.2-1.2); Eosinophils Absolute Auto 0.2 K/mm3 (0-0.3); Eosinophils Percent Auto 2.7 % (0-4.4); Hematocrit 36.6 % (37.0-47.0); Hemoglobin 11.4 g/dL (12.0-15.0); Immature Granulocyte Absolute 0.05 K/mm3 (0.00-0.031); Immature Granulocyte Percent A 0.6 % (0-0.5); Lymphocytes Absolute Auto 0.52 K/mm3 (0.9-3.2); Lymphocytes Percent Auto 6.1 % (18.3-44.2); Mean Corpuscular HGB Conc 31.1 g/dl (32-36); Mean Corpuscular Volume 96.3 fl (80-100); Mean Platelet Volume 9.7 fl (7.4-10.4); Monocytes Absolute Auto 0.6 K/mm3 (0.1-0.6); Monocytes Percent Auto 7.4 % (2.6-8.5); Neutrophils Absolute Auto 7.1 K/mm3 (1.3-6.7); Neutrophils Percent Auto 82.7 % (45.5-73.1); Platelet Count Result 121 k/mm3 (150-375); Red Cell Distribution Width 13.2 % (11.5-14.5); White Blood Count 8.6 K/mm3 (4.5-10.0)
[2022-04-02 07:25] LABS: Alanine Aminotransferase 26 U/L (6-35); Albumin Level 3.4 g/dL (3.5-5.1); Alkaline Phosphatase 69 U/L (38-126); Anion Gap 2 mmol/L (8-16); Aspartate Amino Transferase 27 U/L (14-36); Bilirubin,Total 0.7 mg/dL (0.2-1.3); Blood Urea Nitrogen 48 mg/dL (7-17); Calcium 8.3 mg/dL (8.4-10.2); Carbon Dioxide 29 mmol/L (22-30); Chloride 104 mmol/L (98-107); Estimated CRCL calculation 26 ml/min; Estimated Glomerular Filt Rate 47; Glucose 120 mg/dL (65-110); Potassium 4.2 mmol/L (3.4-5.0); Sodium 135 mmol/L (137-145)
--- NOTE | 2022-04-02 08:36 | ECG_ITS ---
Measurements Intervals [place] Rate: 71 P: 69 MD: 152 QRS: -66 QRSD: 117 T: 269 QT: 429 QTc: 469 Interpretive Statements SINUS RHYTHM LEFT ANTERIOR FASCICULAR BLOCK [QRS AXIS <= -45, QR IN I, RS IN II] LEFT VENTRICULAR HYPERTROPHY AND ST-T CHANGE [VOLTAGE CRITERIA PLUS ST/T ABNORMALITY] COMPARED TO ECG 04/01/2022 00:08:39 NO LONGER BRADYCARDIC THE INFERIOR AND ANTEROLATERAL T WAVE CHANGES HAVE IMPROVED. Electronically Signed On 04-02-2022 17:59:42 CDT by Candelaria Cuba M.D.
--- NOTE | 2022-04-02 09:16 | PM.PNCARD ---
Progress Note: A&P Assessment and Plan (1) Abnormal EKG: Code(s): R94.31 - Abnormal electrocardiogram [ECG] [EKG] Status: Acute Assessment and Plan: The patient presents with a fall and hip fracture requiring ORIF. Her EKG on admission unfortunately shows diffuse T-wave inversion inferiorly and anterolaterally suggestive of an ischemic event. She is a poor historian, but denies any overt angina, and her daughter also states that she has not had any angina or heart problems for many years. She does have some shortness of breath but O2 saturations have been good. Reassuring that her troponin was normal, suggesting no acute coronary syndrome. EKG this morning shows improvement of changes. EKG changes may be related to cardiac stress of her fall superimposed on known chronic CAD. In addition, it is reassuring that the echocardiogram showed good anterior apical systolic function. She does have some inferior wall hypokinesis which is not a surprise considering that the right coronary artery has had several procedures over the the last 14 years. Spoke to daughter Jessenia yesterday we do have concern about the patient's cardiac status. However, further evaluation (Lexiscan? Cardiac catheterization?) will delay needed surgery and may complicate the picture even further and add risk. I do not recommend further cardiac testing. She is aware that there is moderate risk involved of the planned surgery. Resume aspirin if okay with Dr. Neumann Continue carvedilol perioperatively Due to age, frailty and underlying coronary disease the patient is at moderate risk of cardiovascular complications with the proposed surgery but I think she is in optimal condition to proceed. (2) Pre-operative clearance: Code(s): Z01.818 - Encounter for other preprocedural examination Status: Acute Assessment and Plan: As above, cleared for surgery with moderate risk (3) CAD (coronary artery disease): Code(s): I25.10 - Atherosclerotic heart disease of [place] coronary artery without angina pectoris Status: Acute Assessment and Plan: History of NSTEMI he is and coronary stents from [id number]; cardiac status has been stable since then. (4) Closed fracture of neck of left femur: Qualifiers: Encounter type: initial encounter Qualified Code(s): S72.002A - Fracture of unspecified part of neck of left femur, initial encounter for closed fracture Code(s): S72.002A - Fracture of unspecified part of neck of left femur, initial encounter for closed fracture Status: Acute Assessment and Plan: Needs ORIF, probably today. Subjective Date/time seen: 04/02/22 09:16 Review of Systems Review of Systems: Follow-up for CAD, abnormal EKG, preoperative clearance. Patient fell and had hip fracture. History of CAD and stents. EKG this admission showed new T-wave inversion inferior laterally. Troponin was negative. No reported chest pain. Date of service 04/02/2022: Patient was confused last night combative and restless. Nurse reports no complaints of chest pain or shortness of breath and patient denies any chest discomfort, breathing problems, nausea, heartburn etc.. ?I am pretty tough. I will be better when I get home. ? EKG today on my personal review: NSR rate 71, no Q-waves, improvement of inferolateral T-wave inversion. Constitutional: Constitutional: Reports weakness Cardiovascular: Cardiovascular: Denies chest pain, Denies pedal edema, Denies lightheadedness and Denies dyspnea Respiratory: Respiratory: Denies chest congestion and Denies dyspnea Gastrointestinal: Gastrointestinal: Denies abdominal pain and Denies heartburn Musculoskeletal: Musculoskeletal: Reports back pain (Posterior Neck pain) and Reports arthralgias (Hip pain) Integumentary/Breasts: Skin/Breast: Reports system reviewed and no additional complaints, except as docu Neurologic: Reports behavioral changes and
--- NOTE | 2022-04-02 10:22 | PC.NURSE ---
To OR per bed, IV saline locked. SBAR faxed to Preop.
[2022-04-02] MEDS: ACETAMINOPHEN 500 MG TABLET 1000 MG PO (10:36)
[2022-04-02] MEDS: KETOROLAC 15 MG/ML VIAL (*BKC) IV PUSH (10:39)
--- NOTE | 2022-04-02 11:26 | WPDANESEPPF ---
Anes - Initial Pre Proc Eval Procedure: Operation Date: 04/02/22 12:00 Proposed Procedures p Left Bipolar Hip Replacement - Rodger Neumann MD Date/Time: 04/02/22 11:26 Surgeon: Mariela Alexis PA-C Pre Op Diagnosis: Left femoral neck fracture Patient Data Age: 86 Gender: F Height: 1.57 m Weight: 51.5 kg Last Vital Signs Temp 36.9 C 04/02/22 10:25 Pulse 66 04/02/22 10:25 Resp 14 04/02/22 10:25 BP 98/59 L 04/02/22 10:25 Pulse Ox 98 04/02/22 10:25 O2 Del Method Nasal Cannula 04/02/22 10:25 O2 Flow Rate 2 04/02/22 10:25 Allergies Allergy/AdvReac Type Severity Reaction Status Date / Time meperidine Allergy Mild (DEMEROL) Verified 04/01/22 03:45 LEGS JERKING , FEELING FUNNY azathioprine Allergy Unknown Verified 04/01/22 03:45 Home Medications Medication Instructions Recorded Confirmed Type atorvastatin 20 mg tablet 20 mg PO DAILY 10/15/20 04/01/22 History carvedilol 25 mg tablet 25 mg PO BID 10/15/20 04/01/22 History [id number]-[id number] 1 cap PO PRN PRN with snacks 10/15/20 04/01/22 History 24,000-76,000-120,000 unit capsule,delayed rel (Creon) lisinopril 2.5 mg tablet 5 mg PO DAILY 10/15/20 04/01/22 History pantoprazole 40 mg tablet,delayed 40 mg PO DAILY 10/15/20 04/01/22 History release aspirin 81 mg chewable tablet 81 mg PO DAILY 03/20/21 04/01/22 History duloxetine 30 mg capsule,delayed 30 mg PO DAILY 03/20/21 04/01/22 History release nitroglycerin 0.4 mg sublingual 0.4 mg sublingual Q5M PRN Chest 03/20/21 04/01/22 History tablet (Nitrostat) Pain hydrocodone 10 mg-acetaminophen 1 tablet PO Q6H PRN Pain #10 tabs 03/22/21 04/01/22 Rx 325 mg tablet [id number]-zopugjjy-ijyelek 2 cap PO TIDWM 04/01/22 04/01/22 History 24,000-76,000-120,000 unit capsule,delayed rel (Creon) Laboratory Tests 04/01/22 04/02/22 04/02/22 15:22 06:14 06:14 WBC 8.6 K/mm3 K/mm3 (4.5-10.0) RBC 3.80 M/mm3 L M/mm3 (4.2-5.4) Hgb 11.4 g/dL L g/dL (12.0-15.0) Hct 36.6 % L % (37.0-47.0) MCV 96.3 fl fl (80-100) MCH 30.0 pg pg (26-34) MCHC 31.1 g/dl L g/dl (32-36) RDW 13.2 % % (11.5-14.5) Plt Count 121 k/mm3 L k/mm3 (150-375) MPV 9.7 fl fl (7.4-10.4) Immature Gran % (Auto) 0.6 % H % (0-0.5) Neut % (Auto) 82.7 % H % (45.5-73.1) Lymph % (Auto) 6.1 % L % (18.3-44.2) [place] % (Auto) 7.4 % % (2.6-8.5) Eos % (Auto) 2.7 % % (0-4.4) Baso % (Auto) 0.5 % % (0.2-1.2) Lymph # (Auto) 0.52 K/mm3 L K/mm3 (0.9-3.2) [place] # (Auto) 0.6 K/mm3 K/mm3 (0.1-0.6) Eos # (Auto) 0.2 K/mm3 K/mm3 (0-0.3) Baso # (Auto) 0.0 K/mm3 K/mm3 (0.0-0.1) Abs Immat Gran (auto) 0.05 K/mm3 H K/mm3 (0.00-0.031) Absolute Neuts (auto) 7.1 K/mm3 H K/mm3 (1.3-6.7) Absolute Nucleated RBC 0.0 K/mm3 K/mm3 (0.0-0.012) Nucleated RBC % 0.0 % % (0.0-0.2) Sodium 135 mmol/L L mmol/L (137-145) Potassium 4.2 mmol/L mmol/L (3.4-5.0) Chloride 104 mmol/L mmol/L (98-107) Carbon Dioxide 29 mmol/L mmol/L (22-30) Anion Gap 2 mmol/L L mmol/L (8-16) BUN 48 mg/dL H D mg/dL (7-17) Creatinine 1.10 mg/dL H mg/dL (0.7-1.0) Estim Creat Clear Calc 26 ml/min ml/min Estimated GFR 47 L (59 - ) Glucose 120 mg/dL H mg/dL (65-110) Calcium 8.3 mg/dL L mg/dL (8.4-10.2) Total Bilirubin 0.7 mg/dL mg/dL (0.2-1.3) AST 27 U/L U/L (14-36) ALT 26 U/L U/L (6-35) Alkaline Phosphatase 69 U/L U/L (38-126) Total Protein 6.0 g/dL L g/dL (6.3-8.2) Albumin 3.4 g/dL L g/dL (3.5-5.1) Urine Color Yellow (Yellow) Urine Appearance Slightly cloudy (
[2022-04-02] MEDS: TRANEXAMIC ACID 1,000MG/ISO100 1,000 MG/100 ML BAG 200 MG IVPB (11:27)
[2022-04-02] MEDS: LACTATED RINGERS 1,000 ML 30 ML IV CONT ×4 (11:32→16:16)
[2022-04-02] MEDS: ceFAZolin 2 GM/D5W 50 ML 2 GM/50 ML BAG IVPB (11:54)
--- NOTE | 2022-04-02 14:15 | PM.IMPN ---
Progress Note: A&P Assessment and Plan (1) Closed fracture of neck of left femur: Qualifiers: Encounter type: initial encounter Qualified Code(s): S72.002A - Fracture of unspecified part of neck of left femur, initial encounter for closed fracture Code(s): S72.002A - Fracture of unspecified part of neck of left femur, initial encounter for closed fracture Status: Acute Assessment and Plan: -noted on XR -ortho consulted, plan for L hip bipolar hemiarthroplasty today -continue pain control -neurovascularly intact -further management per ortho (2) Fall from ground level: Code(s): W18.30XA - Fall on same level, unspecified, initial encounter Status: Acute Assessment and Plan: -mechanical fall without preceding symptoms -plan as above (3) HTN (hypertension): Code(s): I10 - Essential (primary) hypertension Status: Chronic Assessment and Plan: -continue home meds -stable (4) CAD (coronary artery disease): Code(s): I25.10 - Atherosclerotic heart disease of [place] coronary artery without angina pectoris Status: Acute Assessment and Plan: -aspirin on hold for planned surgery today, will continue after that -continue atorvastatin (5) Pre-operative clearance: Code(s): Z01.818 - Encounter for other preprocedural examination Status: Acute Assessment and Plan: -EKG w/ new T wave inversions laterally which are not present on prior EKGs -she denies chest pain currently and denies symptoms preceding the fall, however she is A/Ox2 currently. She does admit to sob at this time and is wearing 2L NC. Has also been receiving IV narcotic pain medication -hx of [place] and CAD w/ cardiac stents -cardiology consultation for pre op clearance (6) Chronic pancreatitis: Qualifiers: Pancreatitis type: unspecified pancreatitis type Qualified Code(s): K86.1 - Other chronic pancreatitis Code(s): K86.1 - Other chronic pancreatitis Status: Chronic Assessment and Plan: -continue creon -no acute issues Subjective Date/time seen: 04/02/22 14:15 Interval history: 86 yo female w/ hx of HTN, HLD, CAD, DVT, Lupus, [place], who presented to the hospital s/p ground level fall and sustained L hip fracture. Saw her in recovery today s/p Left hip bipolar hemiarthroplasty. Still slowly waking up and disoriented. Review of Systems Review of Systems: ROS unobtainable: Yes unobtainable due to mental status Exam Narrative: GENERAL: NAD, non toxic, somnolent but arousable, disoriented HEAD: Normocephalic, atraumatic. EYES: PERRLA and EOMI. ENT: Nares clear, no rhinorrhea or epistaxis. Mucous membranes moist. NECK: Supple. CHEST: Clear to auscultation. No respiratory distress. No wheezes rales or rhonchi HEART: Regular rate and rhythm. No murmur heard. Normal peripheral pulses. EXTREMITIES: No peripheral edema, dressing c/d/i NEURO: No focal deficits. Disoriented waking up from surgery. PSYCH: Confused Objective Data Vital Signs Vital Signs: Vital Signs - 24 hr 04/01/22 16:00 04/01/22 20:09 04/01/22 20:00 Temperature Pulse Rate 68 73 Respiratory Rate Blood Pressure Pulse Oximetry 99 Oxygen Delivery Nasal Cannula Oxygen Flow Rate 2 04/01/22 22:00 04/02/22 00:00 04/01/22 20:00 Temperature 98.3 F Pulse Rate 74 65 76 Respiratory Rate 18 Blood Pressure 92/64 L Pulse Oximetry 95 Oxygen Delivery Oxygen Flow Rate 04/01/22 21:55 04/02/22 04:00 04/02/22 06:00 Temperature 97.3 F L Pulse Rate 61 86 Respiratory Rate 18 Blood Pressure 93/70 L Pulse Oximetry 95 97 Oxygen Delivery Nasal Cannula Oxygen Flow Rate 2 04/02/22 07:59 04/02/22 10:25 04/02/22 08:00 Temperature 98.5 F Pulse Rate 66 63 Respiratory Rate 14 Blood Pressure 101/65 98/59 L Pulse Oximetry 98 Oxygen Delivery Nasal Cannula
--- NOTE | 2022-04-02 14:19 | W.PM.PROC2 ---
Procedure Note - Detailed Date of Procedure 04/02/22 Pre-op Diagnosis Left femoral neck fracture Post-op Diagnosis Same Procedure Performed Left hip bipolar hemiarthroplasty Surgeon Rodger Neumann MD Bail Bondsman 1st field technical assistant Anesthesia General Indications 86-year-old woman who fell and sustained a left hip femoral neck fracture. Indicated for hemiarthroplasty. Patient desires operative treatment. Description of Procedure After informed consent was given, the operative extremity was marked in the preoperative holding area. The patient received intravenous antibiotics. Patient was brought to the operating room where they underwent a general anesthetic. Positioned in the lateral decubitus position nonop side down and the operative hip up. Careful gel padding was ensured for the down side. Protection of the head neck was done during turning as well as through the case. The hip was then prepped and draped in the usual sterile surgical fashion using ChloraPrep skin solution. Time-out performed confirming the patient, side of the surgery, and the plan. A longitudinal incision was then made over the lateral side of the hip with the 10-blade knife. Hemostasis was controlled with electrocautery. Dissection was carried down through the fascia, which was incised in line with the skin incision. Subfascial retractor was placed. The abductor musculature was then elevated off the lateral side of the femur leaving a cuff of tissue for repair. The short abductor musculature was then elevated off the capsule and retention sutures were placed at the corner. The capsule was then incised in line with the femoral neck and T'd at the base. This allowed exposure of the fracture. The acute fracture hematoma was evacuated. Proximal femoral cutting guide was used to make a femoral neck cut at 2 cm above the lesser trochanter. This bone was removed with a rongeur. We then removed the head with a corkscrew. This was measured on the back table. Trialing of the acetabulum was done and a size 46 mm had excellent fit. The acetabulum was thoroughly irrigated and suctioned. Part of the fovea was removed with cautery. The rest of the acetabulum was inspected and noted to be with minimal degenerative changes. The proximal femur was then prepared. A posterior femoral retractor elevator was placed and a box cutting chisel was used to enter the femoral canal. We then used the canal finder. Broaching was then performed sequentially in 1 mm increments from a size 4 up to a size 14. This was noted to have excellent fit. We then trialed the hip. Excellent fit, stability with external and internal rotation at full extension and flexion of his hip and leg shuck were noted. The trial components were then removed. There was thorough irrigation with antibiotic solution of the proximal femur, acetabulum, and the wound. The femoral stem was then impacted into place. Good fit was noted. Trialing was once again performed and a - 3 stem with a 46mm acetabular cup had excellent stability and range of motion. The trial components were removed and the 28 mm head acetabular cup were then impacted onto the femoral stem. The hip was then reduced once again, taken through full range of motion and noted to be stable with the leg extended in full external and internal rotation with the hip flexed to 90 degrees with internal and external rotation. There was equal leg length noted. Wound was thoroughly irrigated with antibiotic solution. The capsule was repaired with #1 Vicryl interrupted suture. The abductors were repaired back with #1 Vicryl interrupted suture. The fascia was repaired with 0 Vicryl running suture. Subcutaneous tissue was repaired in layers with 2-0 Vicryl interrupted suture. Skin repaired with leonid. A sterile dressing was placed. A hip abduction safety pillow was applied. The patient was then returned supine, extubated after awakening from anesthesia, and taken to the
--- NOTE | 2022-04-02 14:29 | SUR.PHASEI ---
Oral airway removed @ 3439
[2022-04-02] MEDS: LABETALOL HCL INJ 100 MG/20 ML VIAL IV PUSH (14:50)
[2022-04-02] MEDS: SUGAMMADEX SODIUM 200 MG/2 ML VIAL IV PUSH (14:58)
[2022-04-02] MEDS: NALOXONE HCL 0.4 MG/ML VIAL 0.2 MG IV PUSH (14:59)
--- NOTE | 2022-04-02 15:29 | SUR.PHASEI ---
1442- Notified Dr Rosas of patient's BP being elevated SBP 200's. Order received for 5mg of labetalol. This was given at 1450 with very little improvement in BP. This RN noted that patient was not waking up appropriately and O2 sat's were declining on 10L simple mask. Patient was placed on NRB at [address] Rosas was again called at 1449 to notify him that patient had further decline in status with limited breathing effort. Dr. Rosas to bedside, began ventilating patient with BVM which immediately improved patient's saturations. 0.2mg of Narcan was given by this RN at 1455. JESSI Obrien at bedside also providing care at this time. (see anesthesia record). Dr. Rosas also ordered 200mg of sugammadex which was given at 1458. Patient had immediate response to medications and was able to spontaneously begin breathing on her own with adequate breaths and O2 saturation.
--- NOTE | 2022-04-02 16:38 | PCDIET ---
Returned from OR per bed at 1625. Report received from VINCENT Smith.
[2022-04-02] MEDS: KCL 20 MEQ/D5/0.45% SOD CHL 1,000 ML 80 ML IV CONT (16:55)
[2022-04-02] MEDS: PANTOPRAZOLE 40 MG TABLET PO (18:43)
[2022-04-02] MEDS: DULoxetine HCL 30 MG CAPSULE.DR PO (18:43)
[2022-04-02] MEDS: ATORVASTATIN 20 MG TABLET PO (18:43)
[2022-04-02] MEDS: RIVAROXABAN 10 MG TABLET PO (18:44)
[2022-04-02] MEDS: SENNA/DOCUSATE SODIUM TABLET 2 TAB PO (18:44)
[2022-04-02] MEDS: carvediloL 25 MG TABLET PO (20:32)
[2022-04-03] VITALS (9 sets, daily range): BP systolic 78–144; BP diastolic 49–99; PULSE 67–88; RESP 16–20; TEMP 35.9–36.8; O2SAT 92–98
--- NOTE | 2022-04-03 04:20 | PC.NURSE ---
Pt woke up confused and paranoid, pt stating that she doesn't trust us and she wants us to get her out of this dirty basement. Refusing care, difficult to console or redirect.
[2022-04-03] MEDS: KCL 20 MEQ/D5/0.45% SOD CHL 1,000 ML 80 ML IV CONT ×2 (04:42→18:31)
[2022-04-03] MEDS: HYDROmorphone HCL INJ (*CRX) 1 MG/ML SYR 0.5 MG IV PUSH ×2 (04:43→21:31)
[2022-04-03] MEDS: HYDROcodone/acetaminophen (*CRX) 10-325 MG TABLET 1 TAB PO ×2 (06:15→18:09)
[2022-04-03 06:38] LABS: Basophils Percent Auto 0.1 % (0.2-1.2); Eosinophils Percent Auto 0.3 % (0-4.4); Hematocrit 34.4 % (37.0-47.0); Immature Granulocyte Absolute 0.06 K/mm3 (0.00-0.031); Immature Granulocyte Percent A 0.7 % (0-0.5); Lymphocytes Absolute Auto 0.52 K/mm3 (0.9-3.2); Lymphocytes Percent Auto 5.7 % (18.3-44.2); Mean Corpuscular Hemoglobin 30.6 pg (26-34); Mean Corpuscular Volume 95.6 fl (80-100); Mean Platelet Volume 9.8 fl (7.4-10.4); Monocytes Absolute Auto 0.8 K/mm3 (0.1-0.6); Monocytes Percent Auto 8.3 % (2.6-8.5); Neutrophils Absolute Auto 7.7 K/mm3 (1.3-6.7); Neutrophils Percent Auto 84.9 % (45.5-73.1); Platelet Count Result 134 k/mm3 (150-375); Red Cell Distribution Width 12.7 % (11.5-14.5); White Blood Count 9.1 K/mm3 (4.5-10.0)
--- NOTE | 2022-04-03 06:54 | PC.NURSE ---
Pt woke up pleasant, remembers that she is at [employer] and she fell and broke her hip, does not recall the year at this time.
[2022-04-03 07:40] LABS: Anion Gap 3 mmol/L (8-16); Blood Urea Nitrogen 41 mg/dL (7-17); Calcium 7.7 mg/dL (8.4-10.2); Carbon Dioxide 26 mmol/L (22-30); Chloride 105 mmol/L (98-107); Estimated CRCL calculation 32 ml/min; Estimated Glomerular Filt Rate 60; Glucose 162 mg/dL (65-110); Potassium 4.6 mmol/L (3.4-5.0); Sodium 134 mmol/L (137-145)
[2022-04-03 08:20] LABS: Hemoglobin A1C 5.1 % (<5.7)
[2022-04-03 08:52] LABS: Glucose Point of Care 156 mg/dl (65-105)
[2022-04-03] MEDS: SENNA/DOCUSATE SODIUM TABLET 2 TAB PO ×2 (09:08→18:07)
[2022-04-03] MEDS: LIPASE/AMYLASE/PROTEASE 12,000 UNITS CAP 4 CAP PO ×3 (09:08→18:07)
[2022-04-03] MEDS: ASPIRIN 81 MG CHEWABLE TABLET PO (09:08)
[2022-04-03] MEDS: lisinopriL 5 MG TABLET PO (09:08)
[2022-04-03] MEDS: carvediloL 25 MG TABLET PO (09:09)
[2022-04-03] MEDS: polyethylene glycoL 3350 17 GM POWD.PACK PO (09:09)
--- NOTE | 2022-04-03 09:23 | PM.IMPN ---
Progress Note: A&P Assessment and Plan (1) Closed fracture of neck of left femur: Qualifiers: Encounter type: initial encounter Qualified Code(s): S72.002A - Fracture of unspecified part of neck of left femur, initial encounter for closed fracture Code(s): S72.002A - Fracture of unspecified part of neck of left femur, initial encounter for closed fracture Status: Acute Assessment and Plan: -noted on XR -continue pain control -neurovascularly intact -ortho consulted -POD #1 s/p L hip bipolar hemiarthroplasty -further management per ortho (2) Fall from ground level: Code(s): W18.30XA - Fall on same level, unspecified, initial encounter Status: Acute Assessment and Plan: -mechanical fall without preceding symptoms -plan as above (3) HTN (hypertension): Code(s): I10 - Essential (primary) hypertension Status: Chronic Assessment and Plan: -continue home meds -stable (4) CAD (coronary artery disease): Code(s): I25.10 - Atherosclerotic heart disease of [place] coronary artery without angina pectoris Status: Acute Assessment and Plan: -continue aspirin -continue atorvastatin (5) Pre-operative clearance: Code(s): Z01.818 - Encounter for other preprocedural examination Status: Acute Assessment and Plan: -EKG w/ new T wave inversions laterally which are not present on prior EKGs -she denies chest pain and denies symptoms preceding the fall, however she is A/Ox2. -hx of [place] and CAD w/ cardiac stents -cardiology consultation for pre op clearance, moderate cardiac risk but was cleared to proceed (6) Chronic pancreatitis: Qualifiers: Pancreatitis type: unspecified pancreatitis type Qualified Code(s): K86.1 - Other chronic pancreatitis Code(s): K86.1 - Other chronic pancreatitis Status: Chronic Assessment and Plan: -continue creon -no acute issues Subjective Date/time seen: 04/03/22 09:23 Interval history: 86 yo female w/ hx of HTN, HLD, CAD, DVT, Lupus, [place], who presented to the hospital s/p ground level fall and sustained L hip fracture. POD #1 s/p left hip bipolar hemiarthroplasty. A/Ox2 which seems to be her baseline. Denies hip pain. Very hard of hearing. Review of Systems Review of Systems: ROS unobtainable: Yes unobtainable due to mental status Exam Narrative: GENERAL: NAD, non toxic, elderly HEAD: Normocephalic, atraumatic. EYES: PERRLA and EOMI. ENT: Nares clear, no rhinorrhea or epistaxis. Mucous membranes moist. NECK: Supple. CHEST: Clear to auscultation. No respiratory distress. No wheezes rales or rhonchi HEART: Regular rate and rhythm. No murmur heard. Normal peripheral pulses. EXTREMITIES: No peripheral edema, dressing c/d/i NEURO: No focal deficits. A/Ox2. Speech clear. PSYCH: Confused Objective Data Vital Signs Vital Signs: Vital Signs - 24 hr 04/02/22 10:25 04/02/22 14:16 04/02/22 14:31 Temperature 98.5 F 98.6 F Pulse Rate 66 76 98 Respiratory Rate 14 20 22 H Blood Pressure 98/59 L 157/82 H 223/135 H Pulse Oximetry 98 100 98 Oxygen Delivery Nasal Cannula Simple Face Mask Simple Face Mask Oxygen Flow Rate 2 6 6 04/02/22 14:46 04/02/22 15:16 04/02/22 14:50 Temperature Pulse Rate 104 H 73 102 H Respiratory Rate 22 H 16 Blood Pressure 202/116 H 140/83 Pulse Oximetry 93 100 Oxygen Delivery Simple Face Mask Simple Face Mask Oxygen Flow Rate 6 6 04/02/22 15:31 04/02/22 15:48 04/02/22 16:00 Temperature Pulse Rate 67 65 63 Respiratory Rate 18 16 14 Blood Pressure 122/79 100/86 106/73 Pulse Oximetry 95 95 97 Oxygen Delivery Room Air Nasal Cannula Nasal Cannula Oxygen Flow Rate 4 2 04/02/22 16:11 04/02/22 15:01 04/02/22 16:17 Temperature 96.8 F L Pulse Rate 60 93 65 Respiratory Rate 14 30 H 20 Blood Pressure 102/70 185/106 H 105/79 Pulse Oximetry 99 1
--- NOTE | 2022-04-03 11:02 | PM.PNORT ---
Progress Note: A&P Assessment and Plan (1) Closed fracture of neck of left femur: Qualifiers: Encounter type: subsequent encounter Fracture healing: with routine healing Qualified Code(s): S72.002D - Fracture of unspecified part of neck of left femur, subsequent encounter for closed fracture with routine healing Code(s): S72.002A - Fracture of unspecified part of neck of left femur, initial encounter for closed fracture Status: Acute Assessment and Plan: Postoperative day 1. Left hip hemiarthroplasty. Pain controlled. DVT prophylaxis with SCDs and Xarelto. Plan transition aspirin at discharge. PT/OT with weight-bearing as tolerated. Subjective Subjective Date/Time Seen: 04/03/22 11:02 Post Op day: 1 Principal diagnosis: left hip fracture Interval history: patient awake and alert. Minimal pain left hip. Does have discomfort with motion. Exam Const: General: confusion ( Wants to get out of bed.) Orientation/consciousness: confusion ( States that she needs to get ready for her ride) HENMT: Head: normal to inspection, normocephalic and atraumatic Eyes: Conjunctivae: conjunctivae normal Sclera: sclerae normal Neck: Neck: supple and nontender Chest: Chest palpation & inspection: normal inspection of the chest Resp: Effort & Inspection: normal respiratory effort and no audible wheezes Cardio: Rate: regular rate Rhythm: regular rhythm : General: Yes deferred Skin: General skin exam: no rashes or lesions noted Neuro: General: confusion ( as to plan) Cranial nerves: Yes Normal hearing present Extrem: General: capillary refill normal Right upper extremity: normal to inspection Left upper extremity: normal to inspection Right lower extremity: normal to inspection, hip/thigh Details: normal to inspection and normal ROM; no tenderness and no swelling, knee Details: no tenderness and no swelling, ankle Details: normal ROM (Able to flex and extend the ankle) and foot Details: vascular exam Details: dorsalis pedis pulse present and normal capillary refill, tendon exam (Moves all toes) and motor-sensory exam Details: light-touch normal Location: in all toes Left lower extremity: hip/thigh Details: tenderness Location: of the hip Location: laterally and anteriorly, swelling Location: of the hip and other ( Left hip incision with dressing, clean and dry. Muscles soft.), ankle (no calf tenderness) Details: normal ROM (Able to flex/ extend ankle) and foot Details: toes with normal ROM (Moves all toes), vascular exam Details: dorsalis pedis pulse present and normal capillary refill and motor-sensory exam light-touch normal in all toes; no tenderness Psych: Affect: normal affect Objective Data Vital Signs Vital Signs: Vital Signs - 24 hr 04/02/22 14:16 04/02/22 14:31 04/02/22 14:46 Temperature 98.6 F Pulse Rate 76 98 104 H Respiratory Rate 20 22 H 22 H Blood Pressure 157/82 H 223/135 H 202/116 H Pulse Oximetry 100 98 93 Oxygen Delivery Simple Face Mask Simple Face Mask Simple Face Mask Oxygen Flow Rate 6 6 6 04/02/22 15:16 04/02/22 14:50 04/02/22 15:31 Temperature Pulse Rate 73 102 H 67 Respiratory Rate 16 18 Blood Pressure 140/83 122/79 Pulse Oximetry 100 95 Oxygen Delivery Simple Face Mask Room Air Oxygen Flow Rate 6 04/02/22 15:48 04/02/22 16:00 04/02/22 16:11 Temperature Pulse Rate 65 63 60 Respiratory Rate 16 14 14 Blood Pressure 100/86 106/73 102/70 Pulse Oximetry 95 97 99 Oxygen Delivery Nasal Cannula Nasal Cannula Nasal Cannula Oxygen Flow Rate 4 2 2 04/02/22 15:01 04/02/22 16:17 04/02/22 16:32 Temperature 96.8 F L 97.1 F L Pulse Rate 93 65 69 Respiratory Rate 30 H 20 20 Blood Pressure 185/106 H 105/79 111/74 Pulse Oximetry 100 98 99 Oxygen Delivery Bag Valve Mask Oxygen Flow Rate 15 04/02/22 17:02 04/02/22 18:02 04/02/22 20:13 Temperature 96.3 F L 97 F L Pulse Rate 73 67 Respiratory Rate 19 18 Blood Pressure 1
[2022-04-03] MEDS: PANTOPRAZOLE 40 MG TABLET PO (12:26)
[2022-04-03] MEDS: ATORVASTATIN 20 MG TABLET PO (12:26)
[2022-04-03] MEDS: DULoxetine HCL 30 MG CAPSULE.DR PO (12:26)
[2022-04-03] MEDS: RIVAROXABAN 10 MG TABLET PO (18:08)
[2022-04-03] MEDS: LORazepam INJ (*CRX) 2 MG/ML VIAL 1 MG IV PUSH (19:30)
[2022-04-04] VITALS (10 sets, daily range): BP systolic 124–157; BP diastolic 76–101; PULSE 69–92; RESP 16–18; TEMP 35.3–36.8; O2SAT 96–100
[2022-04-04] MEDS: HYDROmorphone HCL INJ (*CRX) 1 MG/ML SYR 0.5 MG IV PUSH ×2 (03:56→12:07)
[2022-04-04] MEDS: ONDANSETRON INJ 4 MG/2 ML VIAL IV PUSH (08:17)
--- NOTE | 2022-04-04 09:00 | PCPTNOTE ---
Attempted Physical Therapy treatment, per RN wait until later today for therapy.
[2022-04-04 09:45] LABS: Basophils Percent Auto 0.3 % (0.2-1.2); Eosinophils Absolute Auto 0.1 K/mm3 (0-0.3); Eosinophils Percent Auto 0.7 % (0-4.4); Hematocrit 40.2 % (37.0-47.0); Immature Granulocyte Absolute 0.06 K/mm3 (0.00-0.031); Immature Granulocyte Percent A 0.5 % (0-0.5); Lymphocytes Absolute Auto 0.59 K/mm3 (0.9-3.2); Lymphocytes Percent Auto 5.2 % (18.3-44.2); Mean Corpuscular HGB Conc 32.3 g/dl (32-36); Mean Corpuscular Volume 92.8 fl (80-100); Mean Platelet Volume 9.7 fl (7.4-10.4); Monocytes Absolute Auto 1.1 K/mm3 (0.1-0.6); Monocytes Percent Auto 9.3 % (2.6-8.5); Neutrophils Absolute Auto 9.6 K/mm3 (1.3-6.7); Platelet Count Result 161 k/mm3 (150-375); Red Blood Count 4.33 M/mm3 (4.2-5.4); Red Cell Distribution Width 12.5 % (11.5-14.5); White Blood Count 11.4 K/mm3 (4.5-10.0)
[2022-04-04 09:54] LABS: Anion Gap 7 mmol/L (8-16); Blood Urea Nitrogen 27 mg/dL (7-17); Calcium 8.3 mg/dL (8.4-10.2); Carbon Dioxide 25 mmol/L (22-30); Chloride 99 mmol/L (98-107); Estimated CRCL calculation 46 ml/min; Estimated Glomerular Filt Rate > 60; Glucose 188 mg/dL (65-110); Potassium 4.1 mmol/L (3.4-5.0); Sodium 131 mmol/L (137-145)
--- NOTE | 2022-04-04 10:45 | PM.PNORT ---
Progress Note: A&P Assessment and Plan (1) Closed fracture of neck of left femur: Qualifiers: Encounter type: subsequent encounter Fracture healing: with routine healing Qualified Code(s): S72.002D - Fracture of unspecified part of neck of left femur, subsequent encounter for closed fracture with routine healing Code(s): S72.002A - Fracture of unspecified part of neck of left femur, initial encounter for closed fracture Status: Acute Assessment and Plan: Postoperative day 2. Left hip hemiarthroplasty. Pain controlled. DVT prophylaxis with SCDs and Xarelto. Plan transition aspirin at discharge. PT/OT with weight-bearing as tolerated. Subjective Subjective Date/Time Seen: 04/04/22 10:45 Post Op day: 2 Principal diagnosis: left hip fracture Interval history: patient awake and alert. Minimal pain left hip. Does have some discomfort with motion. Exam Const: General: confusion ( as to plan) Orientation/consciousness: confusion ( as to plan) HENMT: Head: normal to inspection, normocephalic and atraumatic Eyes: Conjunctivae: conjunctivae normal Sclera: sclerae normal Neck: Neck: supple and nontender Chest: Chest palpation & inspection: normal inspection of the chest Resp: Effort & Inspection: normal respiratory effort and no audible wheezes Cardio: Rate: regular rate Rhythm: regular rhythm : General: Yes deferred Skin: General skin exam: no rashes or lesions noted Neuro: General: confusion ( as to plan) Cranial nerves: Yes Normal hearing present Extrem: General: capillary refill normal Right upper extremity: normal to inspection Left upper extremity: normal to inspection Right lower extremity: normal to inspection, hip/thigh Details: normal to inspection and normal ROM; no tenderness and no swelling, knee Details: no tenderness and no swelling, ankle Details: normal ROM (Able to flex and extend the ankle) and foot Details: vascular exam Details: dorsalis pedis pulse present and normal capillary refill, tendon exam (Moves all toes) and motor-sensory exam Details: light-touch normal Location: in all toes Left lower extremity: hip/thigh Details: tenderness Location: of the hip Location: laterally and anteriorly, swelling Location: of the hip and other ( Left hip incision with dressing, clean and dry. Muscles soft.), ankle (no calf tenderness) Details: normal ROM (Able to flex/ extend ankle) and foot Details: toes with normal ROM (Moves all toes), vascular exam Details: dorsalis pedis pulse present and normal capillary refill and motor-sensory exam light-touch normal in all toes; no tenderness Psych: Affect: normal affect Objective Data Vital Signs Vital Signs: Vital Signs - 24 hr 04/03/22 12:00 04/03/22 16:00 04/03/22 12:00 Temperature 97.6 F 97.9 F Pulse Rate 67 70 69 Respiratory Rate 20 20 Blood Pressure 78/49 L 144/92 H Pulse Oximetry 98 92 04/03/22 16:00 04/03/22 20:04 04/04/22 00:00 Temperature Pulse Rate 88 70 92 Respiratory Rate Blood Pressure Pulse Oximetry 04/04/22 08:57 Temperature 95.5 F L Pulse Rate 87 Respiratory Rate 18 Blood Pressure Pulse Oximetry 96 Intake/Output Intake/Output: Intake & Output 04/01/22 04/02/22 04/03/22 04/04/22 23:59 23:59 23:59 23:59 Intake Total 400 1050 3380 240 Output Total 450 350 525 Balance -50 700 2855 240 Meds/Results Medications: Active Medications Generic Name Dose Route Start Last Admin Trade Name Freq PRN Reason Stop Dose Admin Acetaminophen 650 mg 04/02/22 16:17 Acetaminophen 325 Mg Tablet PO Q6H PRN Mild Pain (1-3) or Fever Hydrocodone Bitart/Acetaminophen 1 tab 04/01/22 07:45 04/03/22 18:09 Hydrocodone/Acetaminophen (*Crx) 10-325 Mg Tablet PO 1 tab Q6H PRN Administration MODERATE PAIN 4-6 Lipase/Protease/Amylase 4 cap 04/01/22 08:00 04/04/22 09:50 Lipase/Amylase/Protease 12,000 Units Cap PO Not Given TIDWM KOMAL L
--- NOTE | 2022-04-04 11:09 | PM.IMPN ---
Progress Note: A&P Assessment and Plan (1) Closed fracture of neck of left femur: Qualifiers: Encounter type: subsequent encounter Fracture healing: with routine healing Qualified Code(s): S72.002D - Fracture of unspecified part of neck of left femur, subsequent encounter for closed fracture with routine healing Code(s): S72.002A - Fracture of unspecified part of neck of left femur, initial encounter for closed fracture Status: Acute Assessment and Plan: -noted on XR -continue pain control, changed Dilaudid to percocet to hopefully help with mentation and oxygen saturations -neurovascularly intact -ortho consulted -POD #2 s/p L hip bipolar hemiarthroplasty -started on xaralto, transition to aspirin on discharge per ortho -further management per ortho (2) Fall from ground level: Code(s): W18.30XA - Fall on same level, unspecified, initial encounter Status: Acute Assessment and Plan: -mechanical fall without preceding symptoms -plan as above (3) HTN (hypertension): Code(s): I10 - Essential (primary) hypertension Status: Chronic Assessment and Plan: -continue home meds -stable (4) CAD (coronary artery disease): Code(s): I25.10 - Atherosclerotic heart disease of [place] coronary artery without angina pectoris Status: Acute Assessment and Plan: -continue aspirin -continue atorvastatin (5) Pre-operative clearance: Code(s): Z01.818 - Encounter for other preprocedural examination Status: Acute Assessment and Plan: -EKG w/ new T wave inversions laterally which are not present on prior EKGs -she denies chest pain and denies symptoms preceding the fall, however she is A/Ox2. -hx of [place] and CAD w/ cardiac stents -cardiology consultation for pre op clearance, moderate cardiac risk but was cleared to proceed (6) Chronic pancreatitis: Qualifiers: Pancreatitis type: unspecified pancreatitis type Qualified Code(s): K86.1 - Other chronic pancreatitis Code(s): K86.1 - Other chronic pancreatitis Status: Chronic Assessment and Plan: -continue creon -having abd pain today -check CT abd/pelv and lipase Subjective Date/time seen: 04/04/22 11:09 Interval history: 86 yo female w/ hx of HTN, HLD, CAD, DVT, Lupus, [place], who presented to the hospital s/p ground level fall and sustained L hip fracture. POD #2 s/p left hip bipolar hemiarthroplasty.? A/Ox2 which seems to be her baseline.? Has some hip pain. Reports not feeling well overall. Having epigastric pain and nausea. No cp/sob but is still on 2L NC. Review of Systems Review of Systems: ROS unobtainable: Yes unobtainable due to mental status Exam Narrative: GENERAL: NAD, non toxic, elderly HEAD: Normocephalic, atraumatic. EYES: PERRLA and EOMI. ENT: Nares clear, no rhinorrhea or epistaxis. Mucous membranes moist. NECK: Supple. CHEST: Clear to auscultation. No respiratory distress. No wheezes rales or rhonchi HEART: Regular rate and rhythm. No murmur heard. Normal peripheral pulses. GI: mild epigastric ttp, no rebound or guarding EXTREMITIES: No peripheral edema, dressing c/d/i NEURO: No focal deficits. A/Ox2. Speech clear. PSYCH: Confused Objective Data Vital Signs Vital Signs: Vital Signs - 24 hr 04/03/22 12:00 04/03/22 16:00 04/03/22 12:00 Temperature 97.6 F 97.9 F Pulse Rate 67 70 69 Respiratory Rate 20 20 Blood Pressure 78/49 L 144/92 H Pulse Oximetry 98 92 04/03/22 16:00 04/03/22 20:04 04/04/22 00:00 Temperature Pulse Rate 88 70 92 Respiratory Rate Blood Pressure Pulse Oximetry 04/04/22 08:57 Temperature 95.5 F L Pulse Rate 87 Respiratory Rate 18 Blood Pressure Pulse Oximetry 96 Intake/Output Intake/Output: Intake & Output 04/01/22 04/02/22 04/03/22 04/04/22 23:59 23:59 23:59 23:59 Intake Total 400 1050 7480 240
[2022-04-04 11:41] LABS: Lipase < 10 U/L (23-300)
--- NOTE | 2022-04-04 11:50 | PCPTNOTE ---
Attempted to see patient for therapy treatment, per RN do not see patient this date.
--- NOTE | 2022-04-04 12:03 | PCOTNOTE ---
Per RN, pt is not appropriate for occupational therapy tx today. Will continue per poc duration/frequency tomorrow.
--- NOTE | 2022-04-04 13:12 | PCSTNOTE ---
Patient not seen this date as nurse reported patient would be unable to actively and cooperatively participate in direct evaluation task. Will check with nurse tomorrow 04/05 concerning possible evaluation.
[2022-04-04] MEDS: PANTOPRAZOLE SODIUM IV 40 MG VIAL IV PUSH (16:56)
[2022-04-04] MEDS: RIVAROXABAN 10 MG TABLET PO (17:32)
[2022-04-04] MEDS: LIPASE/AMYLASE/PROTEASE 12,000 UNITS CAP 4 CAP PO (17:32)
[2022-04-04] MEDS: KCL 20 MEQ/D5/0.45% SOD CHL 1,000 ML 80 ML IV CONT (19:30)
[2022-04-04] MEDS: carvediloL 25 MG TABLET PO (19:51)
[2022-04-04] MEDS: ACETAMINOPHEN 325 MG TABLET 650 MG PO (19:51)
[2022-04-05] VITALS (13 sets, daily range): BP systolic 91–147; BP diastolic 59–93; PULSE 61–86; RESP 18–20; TEMP 36.3–36.6; O2SAT 94–100
[2022-04-05] MEDS: KCL 20 MEQ/D5/0.45% SOD CHL 1,000 ML 80 ML IV CONT ×2 (05:34→17:59)
[2022-04-05 06:12] LABS: Basophils Percent Auto 0.2 % (0.2-1.2); Eosinophils Absolute Auto 0.4 K/mm3 (0-0.3); Eosinophils Percent Auto 3.9 % (0-4.4); Hematocrit 34.9 % (37.0-47.0); Hemoglobin 11.2 g/dL (12.0-15.0); Immature Granulocyte Absolute 0.05 K/mm3 (0.00-0.031); Immature Granulocyte Percent A 0.5 % (0-0.5); Lymphocytes Absolute Auto 0.83 K/mm3 (0.9-3.2); Lymphocytes Percent Auto 8.2 % (18.3-44.2); Mean Corpuscular HGB Conc 32.1 g/dl (32-36); Mean Corpuscular Hemoglobin 29.9 pg (26-34); Mean Corpuscular Volume 93.3 fl (80-100); Mean Platelet Volume 9.8 fl (7.4-10.4); Monocytes Absolute Auto 1.3 K/mm3 (0.1-0.6); Monocytes Percent Auto 12.9 % (2.6-8.5); Neutrophils Absolute Auto 7.5 K/mm3 (1.3-6.7); Neutrophils Percent Auto 74.3 % (45.5-73.1); Platelet Count Result 149 k/mm3 (150-375); Red Blood Count 3.74 M/mm3 (4.2-5.4); Red Cell Distribution Width 12.7 % (11.5-14.5); White Blood Count 10.1 K/mm3 (4.5-10.0)
[2022-04-05 06:24] LABS: Alanine Aminotransferase 16 U/L (6-35); Albumin Level 2.9 g/dL (3.5-5.1); Alkaline Phosphatase 98 U/L (38-126); Anion Gap 3 mmol/L (8-16); Aspartate Amino Transferase 35 U/L (14-36); Bilirubin,Total 0.6 mg/dL (0.2-1.3); Blood Urea Nitrogen 31 mg/dL (7-17); Carbon Dioxide 29 mmol/L (22-30); Chloride 99 mmol/L (98-107); Estimated CRCL calculation 26 ml/min; Estimated Glomerular Filt Rate 47; Glucose 145 mg/dL (65-110); Potassium 4.4 mmol/L (3.4-5.0); Sodium 131 mmol/L (137-145)
[2022-04-05 06:43] LABS: Lipase < 10 U/L (23-300)
[2022-04-05] MEDS: LIPASE/AMYLASE/PROTEASE 12,000 UNITS CAP 4 CAP PO ×3 (08:19→17:59)
[2022-04-05] MEDS: lisinopriL 5 MG TABLET PO (08:20)
[2022-04-05] MEDS: ASPIRIN 81 MG CHEWABLE TABLET PO (08:21)
[2022-04-05] MEDS: oxyCODONE/ACETAMINOPHEN (*CRX) 5-325 MG TABLET 1 TABLET PO (08:21)
[2022-04-05] MEDS: carvediloL 25 MG TABLET PO ×2 (08:22→20:36)
[2022-04-05] MEDS: ATORVASTATIN 20 MG TABLET PO (08:23)
[2022-04-05] MEDS: DULoxetine HCL 30 MG CAPSULE.DR PO (08:23)
[2022-04-05] MEDS: polyethylene glycoL 3350 17 GM POWD.PACK PO (08:24)
[2022-04-05] MEDS: PANTOPRAZOLE SODIUM IV 40 MG VIAL IV PUSH (08:24)
[2022-04-05] MEDS: SENNA/DOCUSATE SODIUM TABLET 2 TAB PO ×2 (08:24→18:00)
--- NOTE | 2022-04-05 09:00 | PCSTNOTE ---
Please refer to the Bedside Swallow Evaluation in the EMR. Please note, silent aspiration cannot be ruled out at bedside.
--- NOTE | 2022-04-05 09:42 | PCPTNOTE ---
Attempted to see patient for Physical Therapy session; patient refused at this time stating I just don't think I can right now. I don't feel good.
--- NOTE | 2022-04-05 11:53 | PM.IMPN ---
Progress Note: A&P Assessment and Plan (1) Closed fracture of neck of left femur: Qualifiers: Encounter type: subsequent encounter Fracture healing: with routine healing Qualified Code(s): S72.002D - Fracture of unspecified part of neck of left femur, subsequent encounter for closed fracture with routine healing Code(s): S72.002A - Fracture of unspecified part of neck of left femur, initial encounter for closed fracture Status: Acute Assessment and Plan: -noted on XR -continue pain control, changed Dilaudid to percocet to hopefully help with mentation and oxygen saturations -neurovascularly intact -ortho consulted -POD #3 s/p L hip bipolar hemiarthroplasty -started on xaralto, transition to aspirin on discharge per ortho -further management per ortho (2) Fall from ground level: Code(s): W18.30XA - Fall on same level, unspecified, initial encounter Status: Acute Assessment and Plan: -mechanical fall without preceding symptoms -plan as above (3) HTN (hypertension): Code(s): I10 - Essential (primary) hypertension Status: Chronic Assessment and Plan: -continue home meds -stable (4) CAD (coronary artery disease): Code(s): I25.10 - Atherosclerotic heart disease of [place] coronary artery without angina pectoris Status: Acute Assessment and Plan: -continue aspirin -continue atorvastatin (5) Pre-operative clearance: Code(s): Z01.818 - Encounter for other preprocedural examination Status: Acute Assessment and Plan: -EKG w/ new T wave inversions laterally which are not present on prior EKGs -she denies chest pain and denies symptoms preceding the fall, however she is A/Ox2. -hx of [place] and CAD w/ cardiac stents -cardiology consultation for pre op clearance, moderate cardiac risk but was cleared to proceed (6) Chronic pancreatitis: Qualifiers: Pancreatitis type: unspecified pancreatitis type Qualified Code(s): K86.1 - Other chronic pancreatitis Code(s): K86.1 - Other chronic pancreatitis Status: Chronic Assessment and Plan: -continue creon -was having abdominal pain but this has resolved, lipase WNL, no pancreatitis noted on CT abd pelv (7) Ureteral stricture, right: Code(s): N13.5 - Crossing vessel and stricture of ureter without hydronephrosis Status: Acute Assessment and Plan: -chronic, has stent in place -CT abd/pelv from 04/04/22 notes increased R hydronephrosis which may reflect R ureteral stent occlusion, also notes bladder dilation -check bladder scan stat, possibly place rubio again? -urology consulted (8) Fecal impaction: Code(s): K56.41 - Fecal impaction Status: Acute Assessment and Plan: -mild -noted on CT -continue Senna, Miralax -will try enema Subjective Date/time seen: 04/05/22 11:53 Interval history: 86 yo female w/ hx of HTN, HLD, CAD, DVT, Lupus, [place], who presented to the hospital s/p ground level fall and sustained L hip fracture. POD #3 s/p left hip bipolar hemiarthroplasty.? A/Ox2 which seems to be her baseline.? Doing better today. Denies hip pain, abdominal pain, nausea. No cp/sob. Still on 2L NC. Review of Systems Review of Systems: ROS unobtainable: Yes unobtainable due to mental status Exam Narrative: GENERAL: NAD, non toxic, elderly HEAD: Normocephalic, atraumatic. EYES: PERRLA and EOMI. ENT: Nares clear, no rhinorrhea or epistaxis. Mucous membranes moist. NECK: Supple. CHEST: Clear to auscultation. No respiratory distress. No wheezes rales or rhonchi HEART: Regular rate and rhythm. No murmur heard. Normal peripheral pulses. GI: soft, non tender, no rebound or guarding EXTREMITIES: No peripheral edema, dressing c/d/i NEURO: No focal deficits. A/Ox2. Speech clear. PSYCH: Confused Objective Data Vital Signs Vital Signs: Vi
[2022-04-05 13:17] LABS: Appearance Urine Clear (Clear); Bilirubin Urine Negative (Negative); Blood Urine 3+ (Negative); Color Urine Yellow (Yellow); Glucose Urine UA Trace mg/dL (Negative); Ketones Urine Negative (Negative); Leukocyte Esterase Ur Negative LEU/UL (Negative); Nitrate Urine Negative (Negative); Protein Urine 1+ mg/dL (Negative); Specific Grav Ur 1.015 (1.001-1.035); Urobilinogen Urine 0.2 mg/dL (<2.0)
--- NOTE | 2022-04-05 13:44 | WPDURCON ---
Assessment and Plan Assessment and plan (1) Ureteral stricture, right: Code(s): N13.5 - Crossing vessel and stricture of ureter without hydronephrosis Status: Acute Assessment and Plan: Will plan for cystoscopy and right ureteral stent exchange tomorrow while patient is in house. Discussed risks and benefits with her daughter/PoA. These include infection, inability to remove old/encrusted stent, postoperative pain, need for nephrostomy, anesthetic complication. Urology Consult Note HPI Date Seen: 04/05/22 Requesting Physician: Mariela Alexis PA-C Primary Care Provider: Kayode Lofton MD Consult Narrative Narrative: Bianca Adams is a 86 year old female with a long history of right ureteral stricture and atrophic right kidney managed with indwelling ureteral stents by Dr. Ayoub. Her last stent exchange was 03/2021. She was admitted for a femur fracture and treated by Dr. Neumann with a left hemiarthroplasty. She has dementia and her daughter is at bedside. She denies bladder pain though she had significant bladder distention requiring Antoine placement. Review of Systems Review of Systems: Unable to obtain due to dementia. [facility] Past Medical History Medical History Anxiety Arthritis CAD (coronary artery disease) With 3 cardiac stents Chronic pancreatitis DDD (degenerative disc disease) DVT (deep venous thrombosis) Left arm and 2009 Fibroids GERD (gastroesophageal reflux disease) History of chronic pancreatitis Due to autoimmune disease HLD (hyperlipidemia) [place] (hard of hearing) HTN (hypertension), malignant Hydronephrosis Chronic Hydronephrosis Lupus (systemic lupus erythematosus) Myocardial infarction Near syncope Orthostatic hypotension Osteoporosis Presence of pancreatic duct stent Skin cancer Status post resection UTI (urinary tract infection) Surgical History Surgical History H/O bilateral cataract extraction H/O cystoscopy H/O: hysterectomy History of back surgery History of biliary duct stent placement Two thousand five performed at [facility] History of cardiac catheterization History of coronary artery stent placement 3 cardiac stents History of urethral stent Family History Family History Father Family history of tuberculosis Mother Acute myocardial infarction Grandparent Cerebrovascular accident Sibling Carcinoma of colon Family history of Alzheimer's disease DVT prophylaxis Breast cancer Sister who is still living Son Diabetes mellitus Social History Social History Social History: 04/01/22 Pt wishes to be a full code The patient lives in her own home. Her son Tay resides with her. She is and has 4 children (2 boys and 2 girls). 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 She used to smoke a pack of cigarettes per day for 50 years but quit smoking in 2008. She used to like to drink alcohol on occasion and in moderation but had to stop after she got pancreatitis. She is independent in activities of daily living. 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 Her daughter Jessenia is her durable power of card mounter. Primary care physician is Dr. Kayode Lofton Smoking packs per day: 0.5 Smoking cigarettes per day: 10.0 Years smoked: 40 Smoking pack-years: 20.00 Smoking status: Former smoker Second hand tobacco smoke exposure: No Alcohol intake: former Substance use: never Substance use type: does not use Gender identity (if verbalized by the patient): Female Spiritual care concerns: No Agree to blood products: Yes Meds Home Medications and Allergies Home Medications Medication Instructions Recorded Confirmed Type atorvastatin 20 mg tablet 20 mg PO D
[2022-04-05 13:49] LABS: Bacteria Urine Trace /hpf; WBC Urine 0-3 /hpf
[2022-04-05 13:51] LABS: Add Urine Microscopic? YES
[2022-04-05 14:35] LABS: Anion Gap 1 mmol/L (8-16); Blood Urea Nitrogen 33 mg/dL (7-17); Calcium 7.9 mg/dL (8.4-10.2); Carbon Dioxide 27 mmol/L (22-30); Chloride 101 mmol/L (98-107); Estimated CRCL calculation 26 ml/min; Estimated Glomerular Filt Rate 47; Glucose 140 mg/dL (65-110); Potassium 4.6 mmol/L (3.4-5.0); Sodium 129 mmol/L (137-145)
[2022-04-05] MEDS: RIVAROXABAN 10 MG TABLET PO (17:59)
[2022-04-05 20:37] LABS: Anion Gap 2 mmol/L (8-16); Blood Urea Nitrogen 33 mg/dL (7-17); Calcium 7.7 mg/dL (8.4-10.2); Carbon Dioxide 28 mmol/L (22-30); Chloride 100 mmol/L (98-107); Estimated CRCL calculation 26 ml/min; Estimated Glomerular Filt Rate 47; Glucose 141 mg/dL (65-110); Potassium 4.7 mmol/L (3.4-5.0); Sodium 130 mmol/L (137-145)
[2022-04-05] MEDS: ACETAMINOPHEN 325 MG TABLET 650 MG PO (21:52)
[2022-04-06] VITALS (18 sets, daily range): BP systolic 92–122; BP diastolic 55–88; PULSE 60–80; RESP 14–20; TEMP 36.4–37; O2SAT 93–100
[2022-04-06] MEDS: oxyCODONE/ACETAMINOPHEN (*CRX) 5-325 MG TABLET 1 TABLET PO ×2 (01:03→21:51)
[2022-04-06 03:48] LABS: Basophils Percent Auto 0.3 % (0.2-1.2); Eosinophils Absolute Auto 0.3 K/mm3 (0-0.3); Eosinophils Percent Auto 5.3 % (0-4.4); Hematocrit 29.6 % (37.0-47.0); Hemoglobin 9.4 g/dL (12.0-15.0); Immature Granulocyte Absolute 0.03 K/mm3 (0.00-0.031); Immature Granulocyte Percent A 0.5 % (0-0.5); Lymphocytes Absolute Auto 0.68 K/mm3 (0.9-3.2); Lymphocytes Percent Auto 10.6 % (18.3-44.2); Mean Corpuscular HGB Conc 31.8 g/dl (32-36); Mean Corpuscular Hemoglobin 30.1 pg (26-34); Mean Corpuscular Volume 94.9 fl (80-100); Monocytes Absolute Auto 0.8 K/mm3 (0.1-0.6); Monocytes Percent Auto 12.2 % (2.6-8.5); Neutrophils Absolute Auto 4.5 K/mm3 (1.3-6.7); Neutrophils Percent Auto 71.1 % (45.5-73.1); Platelet Count Result 128 k/mm3 (150-375); Red Blood Count 3.12 M/mm3 (4.2-5.4); Red Cell Distribution Width 12.6 % (11.5-14.5); White Blood Count 6.4 K/mm3 (4.5-10.0)
[2022-04-06 03:59] LABS: Alanine Aminotransferase 16 U/L (6-35); Albumin Level 2.8 g/dL (3.5-5.1); Alkaline Phosphatase 77 U/L (38-126); Anion Gap 1 mmol/L (8-16); Aspartate Amino Transferase 33 U/L (14-36); Bilirubin,Total 0.4 mg/dL (0.2-1.3); Blood Urea Nitrogen 32 mg/dL (7-17); Calcium 7.8 mg/dL (8.4-10.2); Carbon Dioxide 28 mmol/L (22-30); Chloride 102 mmol/L (98-107); Estimated CRCL calculation 29 ml/min; Estimated Glomerular Filt Rate 53; Glucose 124 mg/dL (65-110); Potassium 4.6 mmol/L (3.4-5.0); Sodium 131 mmol/L (137-145)
[2022-04-06] MEDS: KCL 20 MEQ/D5/0.45% SOD CHL 1,000 ML 80 ML IV CONT ×2 (06:28→20:18)
--- NOTE | 2022-04-06 07:06 | WPDHPUPDATE1 ---
History and Physical Update Update Date/Time: 04/06/22 07:06 History and Physical has been reviewed, including an updated exam of the patient. There are NO changes in the patient's condition. Risks, benefits, and alternatives have been discussed and questions answered. Patient agrees to proceed with procedure.
--- NOTE | 2022-04-06 07:06 | WPDUROPN2 ---
Progress Note: A&P Assessment and Plan (1) Ureteral stricture, right: Code(s): N13.5 - Crossing vessel and stricture of ureter without hydronephrosis Status: Acute Assessment and Plan: To OR for cystoscopy and right ureteral stent exchange. I have discussed risks of procedure with patient's daughter including inability to remove indwelling stent due to encrustation, need for further surgery, infection, postop discomfort, hematuria, anesthetic complication. (2) Postoperative urinary retention: Code(s): N99.89 - Other postprocedural complications and disorders of genitourinary system; R33.8 - Other retention of urine Status: Acute Assessment and Plan: Maintain Antoine, patient will likely require trial of void in office. Subjective Subjective Date/Time Seen: 04/06/22 07:06 NAEO, plan for cystoscopy and right ureteral stent exchange. Daughter agrees to proceed. Discussed with Dr. Neumann yesterday who clears for dorsal lithotomy. Exam Const: General: cooperative, comfortable and no acute distress Nutritional Appearance: cachectic HENMT: Head: normal to inspection Eyes: General: appearance normal, both eyes and all related structures Resp: Effort & Inspection: normal respiratory effort, able to speak in complete sentences, normal respiratory pattern, no audible wheezes and no cough Cardio: Rate: regular rate Peripheral pulses: Peripheral pulses 2+ throughout GI: Inspection: normal to inspection Urinary Catheter: Urinary Catheter: patent and draining and urine clear Objective Data Vital Signs Vital Signs: Vital Signs - 24 hr 04/05/22 08:22 04/05/22 08:00 04/05/22 08:00 Temperature Pulse Rate 68 76 Respiratory Rate Blood Pressure Pulse Oximetry 96 Oxygen Delivery Nasal Cannula Oxygen Flow Rate 2 04/05/22 14:00 04/05/22 12:00 04/05/22 16:00 Temperature 97.5 F L Pulse Rate 62 65 61 Respiratory Rate 20 Blood Pressure 92/60 L Pulse Oximetry 100 Oxygen Delivery Oxygen Flow Rate 04/05/22 13:21 04/05/22 20:36 04/05/22 21:50 Temperature Pulse Rate 71 Respiratory Rate Blood Pressure 91/59 L Pulse Oximetry 95 Oxygen Delivery Nasal Cannula Oxygen Flow Rate 2 04/05/22 21:52 04/05/22 20:00 04/05/22 20:00 Temperature 97.3 F L Pulse Rate 71 67 Respiratory Rate 18 Blood Pressure 100/59 L Pulse Oximetry 100 100 Oxygen Delivery Nasal Cannula Oxygen Flow Rate 2 04/06/22 00:00 04/06/22 01:02 04/06/22 04:00 Temperature Pulse Rate 60 71 63 Respiratory Rate 18 Blood Pressure 108/65 Pulse Oximetry 99 Oxygen Delivery Oxygen Flow Rate 04/06/22 05:51 Temperature 98.6 F Pulse Rate 71 Respiratory Rate 17 Blood Pressure 112/61 Pulse Oximetry 100 Oxygen Delivery Oxygen Flow Rate Intake/Output Intake/Output: Intake & Output 04/03/22 04/04/22 04/05/22 04/06/22 23:59 23:59 23:59 23:59 Intake Total 3380 1440 2710 1250 Output Total 525 4 1200 650 Balance 2855 1436 1510 600 Meds/Results Medications: Active Medications Generic Name Dose Route Start Last Admin Trade Name Freq PRN Reason Stop Dose Admin Acetaminophen 650 mg 04/02/22 16:17 04/05/22 21:52 Acetaminophen 325 Mg Tablet PO 650 mg Q6H PRN Administration Mild Pain (1-3) or Fever Hydrocodone Bitart/Acetaminophen 1 tab 04/01/22 07:45 04/03/22 18:09 Hydrocodone/Acetaminophen (*Crx) 10-325 Mg Tablet PO 1 tab Q6H PRN Administration MODERATE PAIN 4-6 Lipase/Protease/Amylase 4 cap 04/01/22 08:00 04/05/22 17:59 Lipase/Amylase/Protease 12,000 Units Cap PO 4 cap TIDWM KOMAL Administration Lipase/Protease/Amylase 2 cap 04/01/22 07:56 Lipase/Amylase/Protease 12,000 Units Cap PO PRN PRN with snacks Aspirin 81 mg 04/03/22 09:00 04/05/22 08:21 Aspirin 81 Mg Chewable Tablet PO 81 mg DAILY KOMAL Administration Atorvastatin Calcium 20 mg 04/01/22 09:00 04/05/22
[2022-04-06 07:11] LABS: Anion Gap 3 mmol/L (8-16); Blood Urea Nitrogen 29 mg/dL (7-17); Calcium 7.9 mg/dL (8.4-10.2); Carbon Dioxide 28 mmol/L (22-30); Chloride 102 mmol/L (98-107); Estimated CRCL calculation 29 ml/min; Estimated Glomerular Filt Rate 53; Glucose 118 mg/dL (65-110); Potassium 4.6 mmol/L (3.4-5.0); Sodium 133 mmol/L (137-145)
--- NOTE | 2022-04-06 07:26 | WPDANESEPPF ---
Anes - Initial Pre Proc Eval Procedure: Operation Date: 04/02/22 12:00 Proposed Procedures p Left Bipolar Hip Replacement - Rodger Neumann MD Operation Date: 04/06/22 07:30 Proposed Procedures p Cystoscopy with Right Stent Exchange(Right) - Mello Mejia MD Date/Time: 04/06/22 07:26 Surgeon: Mariela Alexis PA-C Pre Op Diagnosis: Left femoral neck fracture Patient Data Age: 86 Gender: F Height: 1.57 m Weight: 51.5 kg Last Vital Signs Temp 37.0 C 04/06/22 05:51 Pulse 71 04/06/22 05:51 Resp 17 04/06/22 05:51 BP 112/61 04/06/22 05:51 Pulse Ox 100 04/06/22 05:51 O2 Del Method Nasal Cannula 04/05/22 20:00 O2 Flow Rate 2 04/05/22 20:00 Allergies Allergy/AdvReac Type Severity Reaction Status Date / Time meperidine Allergy Mild (DEMEROL) Verified 04/01/22 03:45 LEGS JERKING , FEELING FUNNY azathioprine Allergy Unknown Verified 04/01/22 03:45 Home Medications Medication Instructions Recorded Confirmed Type atorvastatin 20 mg tablet 20 mg PO DAILY 10/15/20 04/01/22 History carvedilol 25 mg tablet 25 mg PO BID 10/15/20 04/01/22 History [id number] 1 cap PO PRN PRN with snacks 10/15/20 04/01/22 History 24,000-76,000-120,000 unit capsule,delayed rel (Creon) lisinopril 2.5 mg tablet 5 mg PO DAILY 10/15/20 04/01/22 History pantoprazole 40 mg tablet,delayed 40 mg PO DAILY 10/15/20 04/01/22 History release aspirin 81 mg chewable tablet 81 mg PO DAILY 03/20/21 04/01/22 History duloxetine 30 mg capsule,delayed 30 mg PO DAILY 03/20/21 04/01/22 History release nitroglycerin 0.4 mg sublingual 0.4 mg sublingual Q5M PRN Chest 03/20/21 04/01/22 History tablet (Nitrostat) Pain hydrocodone 10 mg-acetaminophen 1 tablet PO Q6H PRN Pain #10 tabs 03/22/21 04/01/22 Rx 325 mg tablet [id number] 2 cap PO TIDWM 04/01/22 04/01/22 History 24,000-76,000-120,000 unit capsule,delayed rel (Creon) Laboratory Tests 04/05/22 04/05/22 04/05/22 12:57 14:19 20:02 WBC RBC Hgb Hct MCV MCH MCHC RDW Plt Count MPV Immature Gran % (Auto) Neut % (Auto) Lymph % (Auto) [place] % (Auto) Eos % (Auto) Baso % (Auto) Lymph # (Auto) [place] # (Auto) Eos # (Auto) Baso # (Auto) Abs Immat Gran (auto) Absolute Neuts (auto) Absolute Nucleated RBC Nucleated RBC % Sodium 129 mmol/L L mmol/L 130 mmol/L L mmol/L (137-145) (137-145) Potassium 4.6 mmol/L mmol/L 4.7 mmol/L mmol/L (3.4-5.0) (3.4-5.0) Chloride 101 mmol/L mmol/L 100 mmol/L mmol/L (98-107) (98-107) Carbon Dioxide 27 mmol/L mmol/L 28 mmol/L mmol/L (22-30) (22-30) Anion Gap 1 mmol/L L mmol/L 2 mmol/L L mmol/L (8-16) (8-16) BUN 33 mg/dL H mg/dL 33 mg/dL H mg/dL (7-17) (7-17) Creatinine 1.10 mg/dL H mg/dL 1.10 mg/dL H mg/dL (0.7-1.0) (0.7-1.0) Estim Creat Clear Calc 26 ml/min ml/min 26 ml/min ml/min Estimated GFR 47 L 47 L (59 - ) (59 - ) Glucose 140 mg/dL H mg/dL 141 mg/dL H mg/dL (65-110) (65-110) Calcium 7.9 mg/dL L mg/dL 7.7 mg/dL L mg/dL (8.4-10.2) (8.4-10.2) Total Bilirubin AST ALT Alkaline Phosphatase Total Protein Albumin Urine Color Yellow (Yellow) Urine Appearance Clear (Clear) Urine pH 6.0 (5.0-9.0) Ur Specific [place] 1.015 (1.001-1.035) Urine Protein 1+ mg/dL H mg/dL (Negative) Urine Glucose (UA) Trace mg/dL H mg/dL (Negative) Urine Ketones Negative mg/dL mg/dL (Negative) Ur Blood (Man) 3+ H (Nega
[2022-04-06] MEDS: ceFAZolin SODIUM 1 GM VIAL 2 GM IV PUSH (07:37)
--- NOTE | 2022-04-06 08:02 | W.PM.PROC2 ---
Procedure Note - Detailed Date of Procedure 04/06/22 Pre-op Diagnosis Right ureteral stricture Post-op Diagnosis Same Procedure Performed 1. Cystoscopy and right ureteral stent exchange. 2. Right retrograde pyelogram. 3. Fluoroscopy with interpretation of images, less than 1 hour. 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 Last exchange in March of 2021. Managed by Dr. Ayoub. Findings 1. Moderate hydronephrosis. 2. Stent appears in appropriate position at end of case. 3. No bladder masses or lesions noted. Description of Procedure The patient was brought to the operating room, placed on the table, anesthesia induced. She was transferred to the dorsal lithotomy position and prepped and draped in standard fashion. A 22F cystoscope was advanced per urethra and a glide wire placed into the right ureteral orifice adjacent to indwelling stent. The indwelling stent was removed and I attempted to place a 4.8F x 24 cm JJ ureteral stent. This appeared to curl in the proximal ureter. Thus it was removed and I replaced the wire, using a combination of maneuvers and wires the 5F was guided into the renal pelvis and a retrograde performed to confirm no extravasation, a idealista.comson wire left in the pelvis and the 5F removed. The stent was advanced over the wire and deployed. The cystoscope was removed and a 16F Antoine placed wtih 10 cc of sterile water placed in balloon. She was cleaned of betadine prep, transferred to supine position, awoken and taken to PACU in stable condition. Implants 4.8F x 24 cm JJ right ureteral stent Estimated Blood Loss 150 Urine Output 4 Drains Yes (16F Antoine) Packing No Pathology None sent Complications No immediate complications Condition Stable Disposition PACU
[2022-04-06] MEDS: LACTATED RINGERS 1,000 ML 30 ML IV CONT (08:06)
[2022-04-06] MEDS: fentaNYL CITRATE INJ (*CRX) 100 MCG/2 ML VIAL 25 MCG IV PUSH (08:21)
[2022-04-06] MEDS: MORPHINE SULFATE (*CRX) 2 MG/ML INJ IV PUSH (09:11)
[2022-04-06] MEDS: carvediloL 25 MG TABLET PO ×2 (09:11→20:18)
[2022-04-06] MEDS: polyethylene glycoL 3350 17 GM POWD.PACK PO (09:11)
[2022-04-06] MEDS: LIPASE/AMYLASE/PROTEASE 12,000 UNITS CAP 4 CAP PO ×3 (09:12→17:22)
[2022-04-06] MEDS: DULoxetine HCL 30 MG CAPSULE.DR PO (09:12)
[2022-04-06] MEDS: ASPIRIN 81 MG CHEWABLE TABLET PO (09:12)
[2022-04-06] MEDS: SENNA/DOCUSATE SODIUM TABLET 2 TAB PO ×2 (09:12→17:22)
[2022-04-06] MEDS: PANTOPRAZOLE SODIUM IV 40 MG VIAL IV PUSH (09:13)
[2022-04-06] MEDS: ATORVASTATIN 20 MG TABLET PO (09:13)
[2022-04-06] MEDS: lisinopriL 5 MG TABLET PO (09:13)
--- NOTE | 2022-04-06 09:44 | PCPTNOTE ---
Attempted treatment this AM for patient, arrived to room with patient not present in room spoke with nursing who stated she was downstairs for surgery. Notified treating PT for re-eval once new orders of issued.
--- NOTE | 2022-04-06 10:59 | PM.IMPN ---
Progress Note: A&P Assessment and Plan (1) Closed fracture of neck of left femur: Qualifiers: Encounter type: subsequent encounter Fracture healing: with routine healing Qualified Code(s): S72.002D - Fracture of unspecified part of neck of left femur, subsequent encounter for closed fracture with routine healing Code(s): S72.002A - Fracture of unspecified part of neck of left femur, initial encounter for closed fracture Status: Acute Assessment and Plan: -noted on XR -continue pain control, changed Dilaudid to percocet to hopefully help with mentation and oxygen saturations -neurovascularly intact -ortho consulted -POD #4 s/p L hip bipolar hemiarthroplasty -started on xaralto, transition to aspirin on discharge per ortho -further management per ortho (2) Fall from ground level: Code(s): W18.30XA - Fall on same level, unspecified, initial encounter Status: Acute Assessment and Plan: -mechanical fall without preceding symptoms -plan as above (3) HTN (hypertension): Code(s): I10 - Essential (primary) hypertension Status: Chronic Assessment and Plan: -continue home meds -stable (4) CAD (coronary artery disease): Code(s): I25.10 - Atherosclerotic heart disease of [place] coronary artery without angina pectoris Status: Acute Assessment and Plan: -continue aspirin -continue atorvastatin (5) Pre-operative clearance: Code(s): Z01.818 - Encounter for other preprocedural examination Status: Acute Assessment and Plan: -EKG w/ new T wave inversions laterally which are not present on prior EKGs -she denies chest pain and denies symptoms preceding the fall, however she is A/Ox2. -hx of [place] and CAD w/ cardiac stents -cardiology consultation for pre op clearance, moderate cardiac risk but was cleared to proceed (6) Chronic pancreatitis: Qualifiers: Pancreatitis type: unspecified pancreatitis type Qualified Code(s): K86.1 - Other chronic pancreatitis Code(s): K86.1 - Other chronic pancreatitis Status: Chronic Assessment and Plan: -continue creon -was having abdominal pain but this has resolved, lipase WNL, no pancreatitis noted on CT abd pelv (7) Ureteral stricture, right: Code(s): N13.5 - Crossing vessel and stricture of ureter without hydronephrosis Status: Acute Assessment and Plan: -chronic, has stent in place -CT abd/pelv from 04/04/22 notes increased R hydronephrosis which may reflect R ureteral stent occlusion, also notes bladder dilation -bladder scan post void approx 1000 cc, rubio placed -repeat UA still no UTI -urology consulted -went to OR today for ureteral stent exchange (8) Fecal impaction: Code(s): K56.41 - Fecal impaction Status: Acute Assessment and Plan: -mild -noted on CT -continue Senna, Miralax -soap suds enema Subjective Date/time seen: 04/06/22 10:59 Interval history: 86 yo female w/ hx of HTN, HLD, CAD, DVT, Lupus, [place], who presented to the hospital s/p ground level fall and sustained L hip fracture. POD #4 s/p left hip bipolar hemiarthroplasty.? A/Ox2 which seems to be her baseline.? Still on 2L NC. Went to OR again today, this time for cysto and R ureteral stent exchange. She is sleepy today but otherwise has no complaints. No cp/sob/abd pain/hip pain. Rubio catheter placed yesterday. Review of Systems Review of Systems: ROS unobtainable: Yes unobtainable due to mental status Exam Narrative: GENERAL: NAD, non toxic, elderly HEAD: Normocephalic, atraumatic. EYES: PERRLA and EOMI. ENT: Nares clear, no rhinorrhea or epistaxis. Mucous membranes moist. NECK: Supple. CHEST: Clear to auscultation. No respiratory distress. No wheezes rales or rhonchi HEART: Regular rate and rhythm. No murmur heard. Normal peripheral pulses. GI: soft, non te
[2022-04-06] MEDS: HYDROcodone/acetaminophen (*CRX) 10-325 MG TABLET 1 TAB PO ×2 (12:18→17:29)
[2022-04-06] MEDS: RIVAROXABAN 10 MG TABLET PO (17:22)
[2022-04-06] MEDS: ACETAMINOPHEN 325 MG TABLET 650 MG PO (20:16)
[2022-04-07] VITALS (10 sets, daily range): BP systolic 92–131; BP diastolic 40–81; PULSE 61–77; RESP 16–18; TEMP 36.2–37.1; O2SAT 95–98
[2022-04-07] MEDS: HYDROcodone/acetaminophen (*CRX) 10-325 MG TABLET 1 TAB PO ×3 (02:45→19:54)
[2022-04-07] MEDS: oxyCODONE/ACETAMINOPHEN (*CRX) 5-325 MG TABLET 1 TABLET PO ×2 (07:08→23:32)
[2022-04-07 07:35] LABS: Basophils Percent Auto 0.5 % (0.2-1.2); Eosinophils Absolute Auto 0.4 K/mm3 (0-0.3); Eosinophils Percent Auto 5.8 % (0-4.4); Hematocrit 28.2 % (37.0-47.0); Hemoglobin 9.1 g/dL (12.0-15.0); Immature Granulocyte Absolute 0.06 K/mm3 (0.00-0.031); Lymphocytes Absolute Auto 0.67 K/mm3 (0.9-3.2); Lymphocytes Percent Auto 11.1 % (18.3-44.2); Mean Corpuscular HGB Conc 32.3 g/dl (32-36); Mean Corpuscular Hemoglobin 30.2 pg (26-34); Mean Corpuscular Volume 93.7 fl (80-100); Mean Platelet Volume 9.8 fl (7.4-10.4); Monocytes Absolute Auto 0.8 K/mm3 (0.1-0.6); Monocytes Percent Auto 13.6 % (2.6-8.5); Neutrophils Absolute Auto 4.1 K/mm3 (1.3-6.7); Platelet Count Result 150 k/mm3 (150-375); Red Blood Count 3.01 M/mm3 (4.2-5.4); Red Cell Distribution Width 12.4 % (11.5-14.5)
[2022-04-07 07:43] LABS: Anion Gap 0 mmol/L (8-16); Blood Urea Nitrogen 25 mg/dL (7-17); Calcium 7.8 mg/dL (8.4-10.2); Carbon Dioxide 30 mmol/L (22-30); Chloride 104 mmol/L (98-107); Estimated CRCL calculation 35 ml/min; Estimated Glomerular Filt Rate > 60; Glucose 116 mg/dL (65-110); Potassium 4.5 mmol/L (3.4-5.0); Sodium 134 mmol/L (137-145)
[2022-04-07] MEDS: polyethylene glycoL 3350 17 GM POWD.PACK PO (08:43)
[2022-04-07] MEDS: LIPASE/AMYLASE/PROTEASE 12,000 UNITS CAP 4 CAP PO ×3 (08:43→17:50)
[2022-04-07] MEDS: lisinopriL 5 MG TABLET PO (08:43)
[2022-04-07] MEDS: PANTOPRAZOLE SODIUM IV 40 MG VIAL IV PUSH (08:44)
[2022-04-07] MEDS: ATORVASTATIN 20 MG TABLET PO (08:44)
[2022-04-07] MEDS: DULoxetine HCL 30 MG CAPSULE.DR PO (08:44)
[2022-04-07] MEDS: SENNA/DOCUSATE SODIUM TABLET 2 TAB PO ×2 (08:44→17:50)
[2022-04-07] MEDS: ASPIRIN 81 MG CHEWABLE TABLET PO (08:44)
[2022-04-07] MEDS: carvediloL 25 MG TABLET PO ×2 (08:44→20:38)
--- NOTE | 2022-04-07 09:01 | WPDUROPN2 ---
Progress Note: A&P Assessment and Plan (1) Ureteral stricture, right: Code(s): N13.5 - Crossing vessel and stricture of ureter without hydronephrosis Status: Acute Assessment and Plan: Doing well postoperatively. Patient will require follow-up with Dr. Sawyer outpatient to get back on schedule with her stent exchanges Subjective Subjective Date/Time Seen: 04/07/22 09:01 Principal diagnosis: UPJ stricture Interval history: No major complaints at this time. Review of Systems Review of Systems: All systems reviewed & are unremarkable except as noted in HPI and below Exam Const: General: cooperative and comfortable Resp: Effort & Inspection: normal respiratory effort GI: GI Palp: Yes Soft to palpation Objective Data Vital Signs Vital Signs: Vital Signs - 24 hr 04/06/22 09:11 04/06/22 12:41 04/06/22 12:00 Temperature Pulse Rate 74 76 Respiratory Rate Blood Pressure Pulse Oximetry 93 Oxygen Delivery Room Air 04/06/22 14:00 04/06/22 16:00 04/06/22 20:18 Temperature 36.4 C Pulse Rate 62 69 76 Respiratory Rate 20 Blood Pressure 92/55 L Pulse Oximetry 94 Oxygen Delivery 04/06/22 20:00 04/06/22 22:00 04/06/22 20:00 Temperature 36.8 C Pulse Rate 80 74 Respiratory Rate 16 Blood Pressure 122/60 Pulse Oximetry 94 Oxygen Delivery Room Air 04/07/22 00:00 04/07/22 04:00 04/07/22 06:00 Temperature 37.1 C Pulse Rate 65 61 71 Respiratory Rate 16 Blood Pressure 128/70 Pulse Oximetry 95 Oxygen Delivery 04/07/22 08:44 Temperature Pulse Rate 77 Respiratory Rate Blood Pressure Pulse Oximetry Oxygen Delivery Intake/Output Intake/Output: Intake & Output 04/04/22 04/05/22 04/06/22 04/07/22 23:59 23:59 23:59 23:59 Intake Total 1440 2710 2450 350 Output Total 4 1200 1204 950 Balance 1436 1510 1246 -600 Meds/Results Medications: Active Medications Generic Name Dose Route Start Last Admin Trade Name Freq PRN Reason Stop Dose Admin Acetaminophen 650 mg 04/02/22 16:17 04/06/22 20:16 Acetaminophen 325 Mg Tablet PO 650 mg Q6H PRN Administration Mild Pain (1-3) or Fever Hydrocodone Bitart/Acetaminophen 1 tab 04/01/22 07:45 04/07/22 02:45 Hydrocodone/Acetaminophen (*Crx) 10-325 Mg Tablet PO 1 tab Q6H PRN Administration MODERATE PAIN 4-6 Lipase/Protease/Amylase 4 cap 04/01/22 08:00 04/07/22 08:43 Lipase/Amylase/Protease 12,000 Units Cap PO 4 cap TIDWM KOMAL Administration Lipase/Protease/Amylase 2 cap 04/01/22 07:56 Lipase/Amylase/Protease 12,000 Units Cap PO PRN PRN with snacks Aspirin 81 mg 04/03/22 09:00 04/07/22 08:44 Aspirin 81 Mg Chewable Tablet PO 81 mg DAILY KOMAL Administration Atorvastatin Calcium 20 mg 04/01/22 09:00 04/07/22 08:44 Atorvastatin 20 Mg Tablet PO 20 mg DAILY KOMAL Administration Carvedilol 25 mg 04/01/22 09:00 04/07/22 08:44 Carvedilol 25 Mg Tablet PO 25 mg Q12HR KOMAL Administration Duloxetine HCl 30 mg 04/01/22 09:00 04/07/22 08:44 Duloxetine Hcl 30 Mg Capsule.Dr PO 30 mg DAILY KOMAL Administration Fentanyl Citrate 25 mcg 04/06/22 07:31 04/06/22 08:21 Fentanyl Citrate Inj (*Crx) 100 Mcg/2 Ml Vial IV PUSH 25 mcg Q2M PRN Administration Pain Hydralazine HCl 5 mg 04/04/22 15:42 Hydralazine Hcl 20 Mg/Ml Vial IV PUSH Q8H PRN Blood Pressure - High Potassium Chloride/Dextrose/Sod Cl 1,000 mls @ 80 mls/hr 04/02/22 16:17 04/06/22 20:18 Kcl 20 Meq/D5/0.45% Sod Chl IV CONT 80 mls/hr .[id number] KOMAL Administration Lactated Ringer's 1,000 mls @ 30 mls/hr 04/06/22 07:35 04/06/22 08:45 Lr - Lactated Ringers Iv IV CONT Infused .Q24H KOMAL Infusion Lisinopril 5 mg 04/01/22 09:00 04/07/22 08:43 Lisinopril 5 Mg Tablet PO 5 mg DAILY KOMAL Administration Morphine Sulfate 2 mg 04/04/22 15:42 07/04/22 09:11 Morphine Sulfate (*Crx) 2 Mg/Ml Inj I
--- NOTE | 2022-04-07 09:26 | PM.PNORT ---
Progress Note: A&P Assessment and Plan (1) Closed fracture of neck of left femur: Qualifiers: Encounter type: subsequent encounter Fracture healing: with routine healing Qualified Code(s): S72.002D - Fracture of unspecified part of neck of left femur, subsequent encounter for closed fracture with routine healing Code(s): S72.002A - Fracture of unspecified part of neck of left femur, initial encounter for closed fracture Status: Acute Assessment and Plan: POD #5: Left hip hemiarthroplasty. Pain controlled. DVT prophylaxis with SCDs and Xarelto. Plan transition aspirin at discharge. PT/OT with weight-bearing as tolerated. Transition to ABD dressing to control drainage. Subjective Subjective Date/Time Seen: 04/07/22 09:26 Post Op day: 5 Principal diagnosis: left hip fracture Interval history: Patient awake and alert. Minimal pain left hip. No new concerns. Review of Systems Review of Systems: All systems reviewed & are unremarkable except as noted in HPI and below Exam HENMT: Head: normal to inspection, normocephalic and atraumatic Eyes: Conjunctivae: conjunctivae normal Sclera: sclerae normal Neck: Neck: supple and nontender Chest: Chest palpation & inspection: normal inspection of the chest Resp: Effort & Inspection: normal respiratory effort and no audible wheezes Cardio: Rate: regular rate Rhythm: regular rhythm : General: Yes deferred Skin: General skin exam: no rashes or lesions noted Neuro: General: confusion ( as to plan) Cranial nerves: Yes Normal hearing present Extrem: General: capillary refill normal Right upper extremity: normal to inspection Left upper extremity: normal to inspection Right lower extremity: normal to inspection, hip/thigh (serous drainage on dressing ) Details: normal to inspection and normal ROM; no tenderness and no swelling, knee Details: no tenderness and no swelling, ankle Details: normal ROM (Able to flex and extend the ankle) and foot Details: vascular exam Details: dorsalis pedis pulse present and normal capillary refill, tendon exam (Moves all toes) and motor-sensory exam Details: light-touch normal Location: in all toes Left lower extremity: hip/thigh Details: tenderness Location: of the hip Location: laterally and anteriorly, swelling Location: of the hip and other ( Left hip incision with dressing, clean and dry. Muscles soft.), ankle (no calf tenderness) Details: normal ROM (Able to flex/ extend ankle) and foot Details: toes with normal ROM (Moves all toes), vascular exam Details: dorsalis pedis pulse present and normal capillary refill and motor-sensory exam light-touch normal in all toes; no tenderness Psych: Affect: normal affect Objective Data Vital Signs Vital Signs: Vital Signs - 24 hr 04/06/22 12:41 04/06/22 12:00 04/06/22 14:00 Temperature 36.4 C Pulse Rate 76 62 Respiratory Rate 20 Blood Pressure 92/55 L Pulse Oximetry 93 94 Oxygen Delivery Room Air 04/06/22 16:00 04/06/22 20:18 04/06/22 20:00 Temperature Pulse Rate 69 76 Respiratory Rate Blood Pressure Pulse Oximetry Oxygen Delivery Room Air 04/06/22 22:00 04/06/22 20:00 04/07/22 00:00 Temperature 36.8 C Pulse Rate 80 74 65 Respiratory Rate 16 Blood Pressure 122/60 Pulse Oximetry 94 Oxygen Delivery 04/07/22 04:00 04/07/22 06:00 04/07/22 08:44 Temperature 37.1 C Pulse Rate 61 71 77 Respiratory Rate 16 Blood Pressure 128/70 Pulse Oximetry 95 Oxygen Delivery Intake/Output Intake/Output: Intake & Output 04/04/22 04/05/22 04/06/22 04/07/22 23:59 23:59 23:59 23:59 Intake Total 1440 2710 2450 350 Output Total 4 1200 1204 950 Balance 1436 1510 1246 -600 Meds/Results Medications: Active Medications Generic Name Dose Route Start Last Admin Trade Name Freq PRN Reason Stop Dose Admin Acetaminophen 650 mg 04/02/22 16:17 04/06/22 20:16 Acetaminophen 325 Mg Tablet
[2022-04-07] MEDS: KCL 20 MEQ/D5/0.45% SOD CHL 1,000 ML 80 ML IV CONT ×2 (09:30→23:32)
--- NOTE | 2022-04-07 12:14 | PM.IMPN ---
Progress Note: A&P Assessment and Plan (1) Closed fracture of neck of left femur: Qualifiers: Encounter type: subsequent encounter Fracture healing: with routine healing Qualified Code(s): S72.002D - Fracture of unspecified part of neck of left femur, subsequent encounter for closed fracture with routine healing Code(s): S72.002A - Fracture of unspecified part of neck of left femur, initial encounter for closed fracture Status: Acute Assessment and Plan: -noted on XR -continue pain control, changed Dilaudid to percocet to hopefully help with mentation and oxygen saturations -neurovascularly intact -ortho consulted -POD #5 s/p L hip bipolar hemiarthroplasty -started on xarelto, transition to aspirin on discharge per ortho -further management per ortho - Dressing orders today are changed to use of ABD pad secondary to the amount of drainage present. - Pt. to go to SNF at discharge. (2) Fall from ground level: Code(s): W18.30XA - Fall on same level, unspecified, initial encounter Status: Acute Assessment and Plan: -mechanical fall without preceding symptoms -plan as above (3) HTN (hypertension): Code(s): I10 - Essential (primary) hypertension Status: Chronic Assessment and Plan: -continue home meds -stable (4) CAD (coronary artery disease): Code(s): I25.10 - Atherosclerotic heart disease of [place] coronary artery without angina pectoris Status: Acute Assessment and Plan: -continue aspirin -continue atorvastatin (5) Chronic pancreatitis: Qualifiers: Pancreatitis type: unspecified pancreatitis type Qualified Code(s): K86.1 - Other chronic pancreatitis Code(s): K86.1 - Other chronic pancreatitis Status: Chronic Assessment and Plan: -continue creon -monitor for any increased complaints of pain or any vomiting. (6) Ureteral stricture, right: Code(s): N13.5 - Crossing vessel and stricture of ureter without hydronephrosis Status: Acute Assessment and Plan: -chronic, has stent in place -CT abd/pelv from 04/04/22 notes increased R hydronephrosis which may reflect R ureteral stent occlusion, also notes bladder dilation -bladder scan post void approx 1000 cc, rubio placed -repeat UA still no UTI -urology consulted -Ureteral stent was changed out yesterday, 04/06/22. She will discharge with Rubio catheter and follow up with Dr. Ayoub in the future. (7) Fecal impaction: Code(s): K56.41 - Fecal impaction Status: Acute Assessment and Plan: -mild -noted on CT -continue Senna, Miralax -soap suds enema - Pt. having looser stools at this time. Subjective Date/time seen: 04/07/22 1355 This pt. was examined at the bedside today in interval assessment. She remains confused at this time and appears frail and weak. She has no complaints of pain and she has been working with PT. There is a lot of drainage noted on the dressing to the incision today and Orthopedics has suggested changing the dressing to an ABD pad due to the amount of saturation. The pt. states she does not want to go to a shelter, however, the family has chosen to have her go to SNF based upon her level of confusion as well as her increased physical needs at this time. The pt. does not appear to be in any distress and voices no complaints at this time. Review of Systems Review of Systems: All systems reviewed & are unremarkable except as noted in HPI and below (ROS is somewhat limited secondary to patient's mental status and confusion) Exam Narrative: GENERAL: NAD, non toxic, elderly, thin HEAD: Normocephalic, atraumatic. EYES: PERRLA and EOMI. ENT: Nares clear, no rhinorrhea or epistaxis. Mucous membranes moist. NECK: Supple. CHEST: Clear to auscultation. No respiratory distress. No wheezes rales or rhonchi HEART: Regular rate and rhythm. No murmur heard. Normal peripheral pulses. GI: soft,
[2022-04-07] MEDS: RIVAROXABAN 10 MG TABLET PO (17:50)
[2022-04-08 06:00] VITALS: BP 155/58; PULSE 68; RESP 16; TEMP 36.6; O2SAT 96
[2022-04-08 07:27] LABS: Basophils Absolute Auto 0.1 K/mm3 (0.0-0.1); Basophils Percent Auto 0.8 % (0.2-1.2); Eosinophils Absolute Auto 0.3 K/mm3 (0-0.3); Hematocrit 30.9 % (37.0-47.0); Hemoglobin 9.9 g/dL (12.0-15.0); Immature Granulocyte Absolute 0.08 K/mm3 (0.00-0.031); Immature Granulocyte Percent A 1.2 % (0-0.5); Lymphocytes Absolute Auto 0.77 K/mm3 (0.9-3.2); Mean Corpuscular Hemoglobin 30.5 pg (26-34); Mean Corpuscular Volume 95.1 fl (80-100); Mean Platelet Volume 9.4 fl (7.4-10.4); Monocytes Absolute Auto 0.8 K/mm3 (0.1-0.6); Monocytes Percent Auto 12.5 % (2.6-8.5); Neutrophils Absolute Auto 4.4 K/mm3 (1.3-6.7); Neutrophils Percent Auto 68.5 % (45.5-73.1); Platelet Count Result 191 k/mm3 (150-375); Red Blood Count 3.25 M/mm3 (4.2-5.4); Red Cell Distribution Width 12.4 % (11.5-14.5); White Blood Count 6.4 K/mm3 (4.5-10.0)
[2022-04-08 07:55] LABS: Alanine Aminotransferase 14 U/L (6-35); Albumin Level 2.9 g/dL (3.5-5.1); Alkaline Phosphatase 82 U/L (38-126); Anion Gap 1 mmol/L (8-16); Aspartate Amino Transferase 32 U/L (14-36); Bilirubin,Total 0.6 mg/dL (0.2-1.3); Blood Urea Nitrogen 17 mg/dL (7-17); Calcium 8.1 mg/dL (8.4-10.2); Carbon Dioxide 30 mmol/L (22-30); Chloride 102 mmol/L (98-107); Estimated CRCL calculation 40 ml/min; Estimated Glomerular Filt Rate > 60; Glucose 117 mg/dL (65-110); Magnesium 1.8 mg/dL (1.6-2.3); Potassium 4.1 mmol/L (3.4-5.0); Sodium 133 mmol/L (137-145)
[2022-04-08] MEDS: polyethylene glycoL 3350 17 GM POWD.PACK PO (09:01)
[2022-04-08] MEDS: LIPASE/AMYLASE/PROTEASE 12,000 UNITS CAP 4 CAP PO ×3 (09:01→17:52)
[2022-04-08] MEDS: carvediloL 25 MG TABLET PO ×2 (09:01→21:43)
[2022-04-08] MEDS: oxyCODONE/ACETAMINOPHEN (*CRX) 5-325 MG TABLET 1 TABLET PO ×2 (09:01→17:52)
[2022-04-08] MEDS: DULoxetine HCL 30 MG CAPSULE.DR PO (09:01)
[2022-04-08] MEDS: ATORVASTATIN 20 MG TABLET PO (09:01)
[2022-04-08] MEDS: SENNA/DOCUSATE SODIUM TABLET 2 TAB PO ×2 (09:01→17:52)
[2022-04-08] MEDS: PANTOPRAZOLE SODIUM IV 40 MG VIAL IV PUSH (09:01)
[2022-04-08] MEDS: ASPIRIN 81 MG CHEWABLE TABLET PO (09:01)
[2022-04-08] MEDS: lisinopriL 5 MG TABLET PO (09:01)
--- NOTE | 2022-04-08 09:49 | PCNWS ---
Weekly nutritional screen. Patient is tolerating current heart healthy diet with intake improving. No weight loss reported. Pt reported her appetite decreases when she is in pain. No nutritional needs at this time.
[2022-04-08 11:25] VITALS: PULSE 69; O2SAT 95
[2022-04-08] MEDS: HYDROcodone/acetaminophen (*CRX) 10-325 MG TABLET 1 TAB PO (12:40)
--- NOTE | 2022-04-08 12:51 | PCNSR ---
On 04/08/22, the student, Aileen Hall, provided care and completed [facility] documentation on this patient. I have reviewed the student's documentation and agree with the findings.
[2022-04-08 14:00] VITALS: BP 116/68; PULSE 71; RESP 18; TEMP 36.2; O2SAT 96
--- NOTE | 2022-04-08 16:25 | PM.IMPN ---
Progress Note: A&P Assessment and Plan (1) Closed fracture of neck of left femur: Qualifiers: Encounter type: subsequent encounter Fracture healing: with routine healing Qualified Code(s): S72.002D - Fracture of unspecified part of neck of left femur, subsequent encounter for closed fracture with routine healing Code(s): S72.002A - Fracture of unspecified part of neck of left femur, initial encounter for closed fracture Status: Acute Assessment and Plan: Secondary to fall -status post left hip bipolar hemiarthroplasty performed on 04/02/[address] Neumann -analgesics as needed -continue Xarelto for DVT prophylaxis. Planning to transition to aspirin prior to discharge -continue PT/OT -planning for discharge to SNF (2) Fall from ground level: Code(s): W18.30XA - Fall on same level, unspecified, initial encounter Status: Acute Assessment and Plan: Mechanical fall without preceding symptoms -implement fall precautions (3) HTN (hypertension): Code(s): I10 - Essential (primary) hypertension Status: Chronic Assessment and Plan: Blood pressure reviewed and has been stable. Last BP 116/68 -continue lisinopril (4) CAD (coronary artery disease): Code(s): I25.10 - Atherosclerotic heart disease of [place] coronary artery without angina pectoris Status: Acute Assessment and Plan: No acute issues -continue aspirin -continue atorvastatin (5) Chronic pancreatitis: Qualifiers: Pancreatitis type: unspecified pancreatitis type Qualified Code(s): K86.1 - Other chronic pancreatitis Code(s): K86.1 - Other chronic pancreatitis Status: Chronic Assessment and Plan: No acute issues. Tolerating diet. -continue creon (6) Ureteral stricture, right: Code(s): N13.5 - Crossing vessel and stricture of ureter without hydronephrosis Status: Acute Assessment and Plan: History of chronic right ureteral stricture and atrophic right kidney managed with indwelling ureteral stents -CT abd/pelv from 04/04/22 notes increased R hydronephrosis which may reflect R ureteral stent occlusion, also notes bladder dilation -bladder scan post void approx 1000 cc, rubio placed -seen in consultation by Urology -ureteral stent exchange on 04/06/2022 -plan for discharge with Rubio catheter and follow-up with Dr. Ayoub (7) Fecal impaction: Code(s): K56.41 - Fecal impaction Status: Acute Assessment and Plan: Noted on CT -resolved with soapsuds enema -continue bowel regimen: Senna b.i.d. and MiraLax daily -Dulcolax suppository as needed Subjective Date/time seen: 04/08/22 16:25 Interval history: Date of service: 04/08/2022 Bianca Adams is an 86-year-old female with a history of CAD, hypertension, SLE, orthostatic hypotension, anxiety, and chronic pancreatitis who is seen in follow-up for left hip fracture status post left bipolar hemiarthroplasty on 04/02/2022. She is doing okay today. She states her pain is well controlled. She is not able to rate her pain on a scale of 1-10. She states she has never been able to answer this question and it is too hard for her. She is in good spirits. She denies abdominal pain, flank pain, or back pain. No issues with her Rubio catheter. She states she has had a bowel movement. She denies nausea or vomiting. No shortness breath, cough, chest pain. Review of Systems Review of Systems: All systems reviewed & are unremarkable except as noted in HPI and below Exam Narrative: General: Thin, well-appearing 86-year-old female, sitting up in bed, comfortable, NARD Neuro: awake, alert and oriented x3, speech clear, no focal neuro deficits noted, occasionally confused HEENMT: normocephalic, atraumatic, EOMI, sclerae anicteric, hard of hearing Respiratory: clear to auscultation bilaterally, nonlabored breathing Cardio: regular rate, regular r
--- NOTE | 2022-04-08 16:35 | PM.PNORT ---
Progress Note: A&P Assessment and Plan (1) Closed fracture of neck of left femur: Qualifiers: Encounter type: subsequent encounter Fracture healing: with routine healing Qualified Code(s): S72.002D - Fracture of unspecified part of neck of left femur, subsequent encounter for closed fracture with routine healing Code(s): S72.002A - Fracture of unspecified part of neck of left femur, initial encounter for closed fracture Status: Acute Assessment and Plan: POD #6: Left hip hemiarthroplasty. Pain controlled. DVT prophylaxis with SCDs and Xarelto. Plan transition aspirin at discharge. PT/OT with weight-bearing as tolerated. Transition to ABD dressing to control drainage. Subjective Subjective Date/Time Seen: 04/08/22 16:35 Post Op day: 6 Principal diagnosis: left hip fracture Interval history: Patient awake and alert. Minimal pain left hip. No new concerns. Exam HENMT: Head: normal to inspection, normocephalic and atraumatic Eyes: Conjunctivae: conjunctivae normal Sclera: sclerae normal Neck: Neck: supple and nontender Skin: General skin exam: no rashes or lesions noted Neuro: General: confusion ( as to plan) Cranial nerves: Yes Normal hearing present Extrem: General: capillary refill normal Right upper extremity: normal to inspection Left upper extremity: normal to inspection Right lower extremity: normal to inspection, hip/thigh (serous drainage on dressing ) Details: normal to inspection and normal ROM; no tenderness and no swelling, knee Details: no tenderness and no swelling, ankle Details: normal ROM (Able to flex and extend the ankle) and foot Details: vascular exam Details: dorsalis pedis pulse present and normal capillary refill, tendon exam (Moves all toes) and motor-sensory exam Details: light-touch normal Location: in all toes Left lower extremity: hip/thigh Details: tenderness Location: of the hip Location: laterally and anteriorly, swelling Location: of the hip and other ( Left hip incision with dressing, clean and dry. Muscles soft.), ankle (no calf tenderness) Details: normal ROM (Able to flex/ extend ankle) and foot Details: toes with normal ROM (Moves all toes), vascular exam Details: dorsalis pedis pulse present and normal capillary refill and motor-sensory exam light-touch normal in all toes; no tenderness Psych: Affect: normal affect Objective Data Vital Signs Vital Signs: Vital Signs - 24 hr 07/05/22 20:38 04/07/22 20:00 04/07/22 22:00 Temperature 98.3 F Pulse Rate 72 70 Respiratory Rate 16 Blood Pressure 131/81 Pulse Oximetry 95 Oxygen Delivery Room Air 04/08/22 06:00 04/08/22 11:25 04/08/22 14:00 Temperature 97.9 F 97.1 F L Pulse Rate 68 69 71 Respiratory Rate 16 18 Blood Pressure 155/58 H 116/68 Pulse Oximetry 96 95 96 Oxygen Delivery Room Air Intake/Output Intake/Output: Intake & Output 04/05/22 04/06/22 04/07/22 04/08/22 23:59 23:59 23:59 23:59 Intake Total 2710 2450 2590 540 Output Total 1200 1204 1900 3400 Balance 1510 1246 690 -2860 Meds/Results Medications: Active Medications Generic Name Dose Route Start Last Admin Trade Name Freq PRN Reason Stop Dose Admin Acetaminophen 650 mg 04/02/22 16:17 04/06/22 20:16 Acetaminophen 325 Mg Tablet PO 650 mg Q6H PRN Administration Mild Pain (1-3) or Fever Hydrocodone Bitart/Acetaminophen 1 tab 04/01/22 07:45 04/08/22 12:40 Hydrocodone/Acetaminophen (*Crx) 10-325 Mg Tablet PO 1 tab Q6H PRN Administration MODERATE PAIN 4-6 Lipase/Protease/Amylase 4 cap 04/01/22 08:00 04/08/22 12:40 Lipase/Amylase/Protease 12,000 Units Cap PO 4 cap TIDWM KOMAL Administration Lipase/Protease/Amylase 2 cap 04/01/22 07:56 Lipase/Amylase/Protease 12,000 Units Cap PO PRN PRN with snacks Aspirin 81 mg 04/03/22 09:00 04/08/22 09:01 Aspirin 81 Mg Chewable Tablet PO 81 mg DAILY KOMAL Administration Atorvastatin
[2022-04-08] MEDS: RIVAROXABAN 10 MG TABLET PO (17:52)
[2022-04-08] MEDS: BISACODYL 10 MG SUPPOSITORY RECTAL (17:52)
[2022-04-08 21:43] VITALS: PULSE 71
[2022-04-08 22:00] VITALS: BP 121/74; PULSE 55; RESP 18; TEMP 36.7; O2SAT 95
[2022-04-08] MEDS: ACETAMINOPHEN 325 MG TABLET 650 MG PO (23:36)
[2022-04-09] VITALS (8 sets, daily range): BP systolic 130–135; BP diastolic 69–90; PULSE 67–74; RESP 14–18; TEMP 36.7–37.2; O2SAT 94–96
[2022-04-09] MEDS: HYDROcodone/acetaminophen (*CRX) 10-325 MG TABLET 1 TAB PO ×4 (01:57→22:16)
[2022-04-09 06:50] LABS: Hematocrit 29.8 % (37.0-47.0); Hemoglobin 9.6 g/dL (12.0-15.0); Mean Corpuscular HGB Conc 32.2 g/dl (32-36); Mean Corpuscular Volume 93.1 fl (80-100); Mean Platelet Volume 9.1 fl (7.4-10.4); Platelet Count Result 195 k/mm3 (150-375); Red Cell Distribution Width 12.3 % (11.5-14.5); White Blood Count 5.8 K/mm3 (4.5-10.0)
[2022-04-09 06:57] LABS: SARS-CoV-2 RNA PCR Negative
[2022-04-09 07:03] LABS: Anion Gap 3 mmol/L (8-16); Blood Urea Nitrogen 19 mg/dL (7-17); Calcium 8.1 mg/dL (8.4-10.2); Carbon Dioxide 31 mmol/L (22-30); Chloride 101 mmol/L (98-107); Estimated CRCL calculation 40 ml/min; Estimated Glomerular Filt Rate > 60; Glucose 95 mg/dL (65-110); Potassium 3.8 mmol/L (3.4-5.0); Sodium 135 mmol/L (137-145)
[2022-04-09] MEDS: LIPASE/AMYLASE/PROTEASE 12,000 UNITS CAP 4 CAP PO ×3 (08:31→17:41)
[2022-04-09] MEDS: SENNA/DOCUSATE SODIUM TABLET 2 TAB PO ×2 (08:31→17:41)
[2022-04-09] MEDS: ATORVASTATIN 20 MG TABLET PO (08:32)
[2022-04-09] MEDS: carvediloL 25 MG TABLET PO ×2 (08:32→20:17)
[2022-04-09] MEDS: PANTOPRAZOLE SODIUM IV 40 MG VIAL IV PUSH (08:32)
[2022-04-09] MEDS: DULoxetine HCL 30 MG CAPSULE.DR PO (08:32)
[2022-04-09] MEDS: ASPIRIN 81 MG CHEWABLE TABLET PO (08:32)
[2022-04-09] MEDS: polyethylene glycoL 3350 17 GM POWD.PACK PO (08:32)
--- NOTE | 2022-04-09 09:41 | PM.PNORT ---
Progress Note: A&P Assessment and Plan (1) Closed fracture of neck of left femur: Qualifiers: Encounter type: subsequent encounter Fracture healing: with routine healing Qualified Code(s): S72.002D - Fracture of unspecified part of neck of left femur, subsequent encounter for closed fracture with routine healing Code(s): S72.002A - Fracture of unspecified part of neck of left femur, initial encounter for closed fracture Status: Acute Assessment and Plan: POD #7: Left hip hemiarthroplasty. Pain controlled. DVT prophylaxis with SCDs and Xarelto. Plan transition aspirin at discharge. PT/OT with weight-bearing as tolerated. Transition to ABD dressing to control drainage. Subjective Subjective Date/Time Seen: 04/09/22 09:41 Post Op day: 7 Principal diagnosis: Left hip fracture Interval history: Patient awake and alert. Minimal pain left hip. No new concerns. Review of Systems Review of Systems: All systems reviewed & are unremarkable except as noted in HPI and below Exam HENMT: Head: normal to inspection, normocephalic and atraumatic Eyes: Conjunctivae: conjunctivae normal Sclera: sclerae normal Neck: Neck: supple and nontender Skin: General skin exam: no rashes or lesions noted Neuro: General: confusion ( as to plan) Cranial nerves: Yes Normal hearing present Extrem: General: capillary refill normal Right upper extremity: normal to inspection Left upper extremity: normal to inspection Right lower extremity: normal to inspection, hip/thigh (serous drainage on dressing ) Details: normal to inspection and normal ROM; no tenderness and no swelling, knee Details: no tenderness and no swelling, ankle Details: normal ROM (Able to flex and extend the ankle) and foot Details: vascular exam Details: dorsalis pedis pulse present and normal capillary refill, tendon exam (Moves all toes) and motor-sensory exam Details: light-touch normal Location: in all toes Left lower extremity: hip/thigh Details: tenderness Location: of the hip Location: laterally and anteriorly, swelling Location: of the hip and other ( Left hip incision with dressing, clean and dry. Muscles soft.), ankle (no calf tenderness) Details: normal ROM (Able to flex/ extend ankle) and foot Details: toes with normal ROM (Moves all toes), vascular exam Details: dorsalis pedis pulse present and normal capillary refill and motor-sensory exam light-touch normal in all toes; no tenderness Psych: Affect: normal affect Objective Data Vital Signs Vital Signs: Vital Signs - 24 hr 04/08/22 11:25 04/08/22 14:00 04/08/22 20:00 Temperature 36.2 C L Pulse Rate 69 71 Respiratory Rate 18 Blood Pressure 116/68 Pulse Oximetry 95 96 Oxygen Delivery Room Air Room Air 04/08/22 21:43 04/08/22 22:00 04/09/22 06:00 Temperature 36.7 C 36.7 C Pulse Rate 71 55 L 71 Respiratory Rate 18 14 Blood Pressure 121/74 131/90 Pulse Oximetry 95 95 Oxygen Delivery 04/09/22 08:32 Temperature Pulse Rate 74 Respiratory Rate Blood Pressure Pulse Oximetry Oxygen Delivery Intake/Output Intake/Output: Intake & Output 04/06/22 04/07/22 04/08/22 04/09/22 23:59 23:59 23:59 23:59 Intake Total 2450 2590 660 200 Output Total 1204 1900 4850 550 Balance 1246 690 -6190 -350 Meds/Results Medications: Active Medications Generic Name Dose Route Start Last Admin Trade Name Freq PRN Reason Stop Dose Admin Acetaminophen 650 mg 04/02/22 16:17 04/08/22 23:36 Acetaminophen 325 Mg Tablet PO 650 mg Q6H PRN Administration Mild Pain (1-3) or Fever Hydrocodone Bitart/Acetaminophen 1 tab 04/01/22 07:45 04/09/22 08:38 Hydrocodone/Acetaminophen (*Crx) 10-325 Mg Tablet PO 1 tab Q6H PRN Administration MODERATE PAIN 4-6 Lipase/Protease/Amylase 4 cap 04/01/22 08:00 04/09/22 08:31 Lipase/Amylase/Protease 12,000 Units Cap PO 4 cap TIDWM KOMAL Administration Lipase/Protease/Amylase 2 cap
[2022-04-09] MEDS: lisinopriL 5 MG TABLET PO (12:35)
--- NOTE | 2022-04-09 14:07 | PM.DS ---
DS: Admitting Diagnosis Discharge Date 04/09/2022 Admitting Diagnosis Left femur fracture DS: Discharge Diagnosis Discharge Diagnosis (1) Closed fracture of neck of left femur: Qualifiers: Encounter type: subsequent encounter Fracture healing: with routine healing Qualified Code(s): S72.002D - Fracture of unspecified part of neck of left femur, subsequent encounter for closed fracture with routine healing Code(s): S72.002A - Fracture of unspecified part of neck of left femur, initial encounter for closed fracture Status: Acute Assessment and Plan: Secondary to fall -status post left hip bipolar hemiarthroplasty performed on 04/02/[address] Thien Armstrong for DVT prophylaxis during admission and then was transitioned to home aspirin following discharge per Ortho recommendations -participated in PT/OT during admission will continue therapy at SNF -orthopedic surgery follow-up as an outpatient (2) Fall from ground level: Code(s): W18.30XA - Fall on same level, unspecified, initial encounter Status: Acute Assessment and Plan: Mechanical fall without preceding symptoms -fall precautions implemented (3) HTN (hypertension): Code(s): I10 - Essential (primary) hypertension Status: Chronic Assessment and Plan: Blood pressure reviewed and remained stable. -continue lisinopril (4) CAD (coronary artery disease): Code(s): I25.10 - Atherosclerotic heart disease of [place] coronary artery without angina pectoris Status: Acute Assessment and Plan: No acute issues -continue aspirin and atorvastatin (5) Chronic pancreatitis: Qualifiers: Pancreatitis type: unspecified pancreatitis type Qualified Code(s): K86.1 - Other chronic pancreatitis Code(s): K86.1 - Other chronic pancreatitis Status: Chronic Assessment and Plan: No acute issues. Tolerated diet. 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 Ayoub to get back to regularly scheduled stent exchanges (7) Fecal impaction: Code(s): K56.41 - Fecal impaction Status: Acute Assessment and Plan: Noted on CT -resolved with soapsuds enema -she will need to continue bowel regimen especially with narcotic pain medication and decreased mobility. Continue Senna b.i.d. and MiraLax daily. Dulcolax suppository as needed DS: Summary Hospital Course Hospital Course: Date of admission: 03/31/2022 Date of discharge: 04/09/2022 Bianca Adams is an 86-year-old female with a history of CAD, hypertension, SLE, orthostatic hypotension, anxiety, and chronic pancreatitis who presented to the emergency department on 03/31/2022 after suffering from a ground level fall with complaints of left hip pain. Did not hit her head or lose consciousness. On presentation to the ED, imaging revealed a left-sided displaced femoral neck fracture and she was admitted to the hospitalist service for further evaluation and management. She was seen in consultation by Cardiology, Orthopedic surgery, Urology. Please see above for further details. She underwent left hip surgical repair. She also had a right ureteral stent exchange. She tolerated these procedures well. She participated in therapy. She will continue therapy at SNF and will follow-up with Urology and O
--- NOTE | 2022-04-09 14:17 | PCOTNOTE ---
The OT treatment was unable to be completed this date. Will continue with plan of care 04/10/22.
--- NOTE | 2022-04-09 16:37 | PC.NURSE ---
Sarai Dinh RN and Elida Burnham RN verified and returned home medications.
[2022-04-09] MEDS: RIVAROXABAN 10 MG TABLET PO (17:42)
[2022-04-09] MEDS: MORPHINE SULFATE (*CRX) 2 MG/ML INJ IV PUSH (20:14)
[2022-04-10] MEDS: MORPHINE SULFATE (*CRX) 2 MG/ML INJ IV PUSH (02:57)
[2022-04-10 05:24] VITALS: BP 130/79; PULSE 68; RESP 20; TEMP 36.5; O2SAT 93
[2022-04-10] MEDS: HYDROcodone/acetaminophen (*CRX) 10-325 MG TABLET 1 TAB PO (05:49)
== END 2022-04-10 06:10 | DRG 522 ==
LOC: ANHED 04-01 02:05 → ANH3MEDSUR 04-01 02:51
PROVIDERS: Internal Medicine Cardiovascular Disease; Nurse Practitioner; Nurse Practitioner Adult Health; Orthopaedic Surgery; Physician Assistant; Urology; Admitting Provider Internal Medicine; Emergency Provider Emergency Medicine; PCP Family Medicine; Visit Provider Physician Assistant
PROC: 0SRS0JA Replacement of Left Hip Joint, Femoral Surface with Synthetic Substitute, Uncemented, Open Approach (ICD-10-PCS; CPT 27125; principal; 2022-04-02 12:00)
PROC: 0T768DZ Dilation of Right Ureter with Intraluminal Device, Via Natural or Artificial Opening Endoscopic (ICD-10-PCS; CPT 52310; principal; 2022-04-06 07:30)
DX: S72.002A Fracture of unspecified part of neck of left femur, initial encounter for closed fracture (principal); K86.1 Other chronic pancreatitis; N13.1 Hydronephrosis with ureteral stricture, not elsewhere classified; Z20.822 Contact with and (suspected) exposure to COVID-19; W18.30XA Fall on same level, unspecified, initial encounter; I10 Essential (primary) hypertension; I25.10 Atherosclerotic heart disease of native coronary artery without angina pectoris; Z87.891 Personal history of nicotine dependence; M32.9 Systemic lupus erythematosus, unspecified; Z80.3 Family history of malignant neoplasm of breast; Z82.0 Family history of epilepsy and other diseases of the nervous system; N99.89 Other postprocedural complications and disorders of genitourinary system; Z83.3 Family history of diabetes mellitus; Z80.0 Family history of malignant neoplasm of digestive organs; Z82.49 Family history of ischemic heart disease and other diseases of the circulatory system; Z95.5 Presence of coronary angioplasty implant and graft; K21.9 Gastro-esophageal reflux disease without esophagitis; F41.9 Anxiety disorder, unspecified; Z86.718 Personal history of other venous thrombosis and embolism; I25.2 Old myocardial infarction; M81.0 Age-related osteoporosis without current pathological fracture; Z79.01 Long term (current) use of anticoagulants; E78.5 Hyperlipidemia, unspecified; Z87.440 Personal history of urinary (tract) infections; Z79.82 Long term (current) use of aspirin; R94.31 Abnormal electrocardiogram [ECG] [EKG]; K56.41 Fecal impaction; R41.0 Disorientation, unspecified
CPT/HCPCS: 36415; 51702; 71045; 71275; 72131; 73502; 74177; 74420; 80048; 80053; 81001; 82948; 83036; 83690; 83735; 84484; 85025; 85027; 85610; 85730; 87045; 87269; 87272; 87427; 89055; 92610; 93005; 93306; 96365; 96375; 96376; 97110; 97116; 97161; 97164; 97166; 97530; 97535; 99285; A9270; C1758; C1769; C1776; C2617; C9113; C9803; G0378; J0131; J0690; J1100; J1170; J1885; J2060; J2270; J2310; J2370; J2405; J2704; J2710; J3010; J3480; J7030; J7120; Q9967; U0003; U0005

== ENCOUNTER 2022-07-30 14:18 | Emergency (ER) | payer MEDICARE, SELFPAY ==
--- NOTE | ~2022-07-30 | XR_ITS ---
EXAMINATION: XR chest 1V portable 07/30/2022 15:16 INDICATION: Syncope. Hypertension. PROCEDURE: AP portable chest COMPARISON: Comparison to multiple prior studies sequentially, with oldest reviewed study dated 03/20. FINDINGS: The lungs are clear. The cardiomediastinal silhouette is within normal limits. There are no pleural effusions. There is no pneumothorax suspected. There are scattered calcified granulomas. The lungs are hyperinflated which is consistent with, but not diagnostic of chronic obstructive pulm onary disease. There is atherosclerosis and ectasia of the aorta. IMPRESSION: 1: NO ACUTE CARDIOPULMONARY DISEASE. Reviewed, dictated and finalized at location B.
--- NOTE | ~2022-07-30 | CT_ITS ---
EXAMINATION: CT brain wo con DATE: 07/30/2022 15:10 INDICATION: Syncope TECHNIQUE: Computed tomography (CT) of the head was performed without intravenous contrast. The mA wa s adjusted according to patient size. Iterative reconstruction technique was employed. Exam dose: 60 5.33 mGy-cm total exam DLP. COMPARISON: 12/09/2021 CT brain FINDINGS: There is nonspecific diminished attenuation of the cerebral white matter, likely due to chr onic small vessel ischemic change. There are chronic lacunar infarcts of left basal ganglia and in the region of the anterior limb of th e left internal capsule. No intracranial mass lesion or hemorrhage or recent cerebrovascular accident is detected. No subdura l or epidural hematoma. No fracture or bone destruction of the cranial vault. The paranasal sinuses and mastoid air cells are normally developed and aerated. 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 Reviewed, dictated and finalized at location A.
--- NOTE | 2022-07-30 14:20 | ECG_ITS ---
Measurements Intervals [place] Rate: 58 P: 78 NJ: 153 QRS: -58 QRSD: 129 T: -25 QT: 484 QTc: 476 Interpretive Statements SINUS BRADYCARDIA RIGHT BUNDLE BRANCH BLOCK [120+ ms QRS DURATION, UPRIGHT V1, 40+ ms S IN I/aVL/V4/V5/V6] LEFT ANTERIOR FASCICULAR BLOCK [QRS AXIS <= -45, QR IN I, RS IN II] LEFT VENTRICULAR HYPERTROPHY AND ST-T CHANGE [VOLTAGE CRITERIA PLUS ST/T ABNORMALITY] COMPARED TO ECG 04/02/2022 08:56:14 SINUS BRADYCARDIA NOW PRESENT RIGHT BUNDLE-BRANCH BLOCK NOW PRESENT Electronically Signed On 07-30-2022 14:42:46 CDT by Fransisco Reese M.D.
[2022-07-30 14:22] VITALS: PULSE 58; RESP 22; O2SAT 91
[2022-07-30 14:31] VITALS: BP 159/93; PULSE 60; RESP 18; RESP 27; O2SAT 94; O2SAT 97
[2022-07-30 14:32] VITALS: PULSE 59; RESP 22; O2SAT 98
[2022-07-30 14:46] VITALS: PULSE 67; RESP 20; O2SAT 100
--- NOTE | 2022-07-30 14:53 | ED.SYNCOPE ---
HPI - Syncope General Chief Complaint: Syncope Stated Complaint: syncope Time Seen by Provider: 07/30/22 14:31 Source: patient and EMS Mode of arrival: EMS Limitations: altered mental status and dementia History of Present Illness HPI narrative: 87 years old white female came to the emergency room by ambulance from home complaining of body aches from head to toes. For long time. Patient's son who lives with the patient, did not come with her, reports that patient told him that she have a heart attack then he called 911. In the emergency room patient denying any chest pain, shortness of breath, fever, chills, nausea, vomiting. Patient is telling me that she got kidnapped by ambulance who brought her to the emergency room. Patient is telling me this is ridiculous and she would like to go home. She denies any specific symptoms except is all over her body. Patient's daughter 1 hour later came to the emergency room and told me that patient mental status is exactly the same as before nothing different and her mom go through periods of confusion [id number] because she has severe dementia. And she would like to take her home and signed AMA. Patient signed did not show up in the emergency room. Her daughter came from work to see what is going on who did not know what is going on initially then made a phone call with her brother who told us the above story. Related Data Home Medications Medication Instructions Recorded Confirmed atorvastatin 20 mg tablet 20 mg PO DAILY 10/15/20 04/01/22 carvedilol 25 mg tablet 25 mg PO BID 10/15/20 04/01/22 [id number] 1 cap PO PRN PRN with snacks 10/15/20 04/01/22 24,000-76,000-120,000 unit capsule,delayed rel (Creon) lisinopril 2.5 mg tablet 5 mg PO DAILY 10/15/20 04/01/22 pantoprazole 40 mg tablet,delayed 40 mg PO DAILY 10/15/20 04/01/22 release aspirin 81 mg chewable tablet 81 mg PO DAILY 03/20/21 04/01/22 duloxetine 30 mg capsule,delayed 30 mg PO DAILY 03/20/21 04/01/22 release nitroglycerin 0.4 mg sublingual 0.4 mg sublingual Q5M PRN Chest 03/20/21 04/01/22 tablet (Nitrostat) Pain vsuszm-jumfcmja-scqdgbl 2 cap PO TIDWM 04/01/22 04/01/22 24,000-76,000-120,000 unit capsule,delayed rel (Creon) Allergies Allergy/AdvReac Type Severity Reaction Status Date / Time meperidine Allergy Mild (DEMEROL) Verified 05/04/22 13:15 LEGS JERKING , FEELING FUNNY azathioprine Allergy Unknown Verified 05/04/22 13:15 Review of Systems Review of Systems: All systems reviewed & are unremarkable except as noted in HPI and below PMFSH Past Medical History Medical History Anxiety Arthritis CAD (coronary artery disease) With 3 cardiac stents Chronic pancreatitis Closed fracture of neck of left femur DDD (degenerative disc disease) DVT (deep venous thrombosis) Left arm and 2009 Fibroids GERD (gastroesophageal reflux disease) History of chronic pancreatitis Due to autoimmune disease HLD (hyperlipidemia) [place] (hard of hearing) HTN (hypertension), malignant Hydronephrosis Chronic Hydronephrosis Left hip pain Lupus (systemic lupus erythematosus) Myocardial infarction Near syncope Orthostatic hypotension Osteoporosis Presence of pancreatic duct stent Skin cancer Status post resection UTI (urinary tract infection) Surgical History Surgical History H/O bilateral cataract extraction H/O cystoscopy H/O: hysterectomy History of back surgery History of biliary duct stent placement Two thousand five performed at [facility] History of cardiac catheterization History of coronary artery stent placement 3 cardiac stents History of urethral stent Family History Family History Father Family history of tuberculosis Mother Acute myocardial infarction Grandparent Cerebrovascular accident Sibling C
[2022-07-30 14:56] LABS: Basophils Percent Auto 0.8 % (0.2-1.2); Eosinophils Absolute Auto 0.1 K/mm3 (0-0.3); Eosinophils Percent Auto 1.9 % (0-4.4); Hemoglobin 12.5 g/dL (12.0-15.0); Immature Granulocyte Absolute 0.02 K/mm3 (0.00-0.031); Immature Granulocyte Percent A 0.4 % (0-0.5); Immature Platelet Fraction Pct 2.7 % (0.9-11.2); Lymphocytes Absolute Auto 1.31 K/mm3 (0.9-3.2); Lymphocytes Percent Auto 25.2 % (18.3-44.2); Mean Corpuscular HGB Conc 31.3 g/dl (32-36); Mean Corpuscular Hemoglobin 29.5 pg (26-34); Mean Corpuscular Volume 94.3 fl (80-100); Mean Platelet Volume 9.3 fl (7.4-10.4); Monocytes Absolute Auto 0.5 K/mm3 (0.1-0.6); Monocytes Percent Auto 9.8 % (2.6-8.5); Neutrophils Absolute Auto 3.2 K/mm3 (1.3-6.7); Neutrophils Percent Auto 61.9 % (45.5-73.1); Platelet Count Result 157 k/mm3 (150-375); Red Blood Count 4.24 M/mm3 (4.2-5.4); Red Cell Distribution Width 13.7 % (11.5-14.5); White Blood Count 5.2 K/mm3 (4.5-10.0)
[2022-07-30 15:05] LABS: Alanine Aminotransferase 20 U/L (6-35); Albumin Level 4.2 g/dL (3.5-5.1); Alkaline Phosphatase 67 U/L (38-126); Anion Gap 9 mmol/L (8-16); Aspartate Amino Transferase 27 U/L (14-36); Bilirubin,Total 0.5 mg/dL (0.2-1.3); Blood Urea Nitrogen 34 mg/dL (7-17); Calcium 8.6 mg/dL (8.4-10.2); Carbon Dioxide 28 mmol/L (22-30); Chloride 101 mmol/L (98-107); Estimated Glomerular Filt Rate 47; Glucose 149 mg/dL (65-110); Potassium 4.3 mmol/L (3.4-5.0); Sodium 138 mmol/L (137-145)
[2022-07-30 15:34] VITALS: BP 164/94; PULSE 67; RESP 14; O2SAT 97
[2022-07-30 15:45] VITALS: PULSE 75; RESP 15; O2SAT 98
[2022-07-30 15:57] LABS: Add Urine Microscopic? YES; Appearance Urine Cloudy (Clear); Bacteria Urine 1+ /hpf; Bilirubin Urine Negative (Negative); Blood Urine 1+ (Negative); Color Urine Amber (Yellow); Glucose Urine UA Negative (Negative); Ketones Urine Trace mg/dL (Negative); Leukocyte Esterase Ur 3+ LEU/UL (Negative); Mucus Urine Rare /lpf; Nitrate Urine Positive (Negative); Protein Urine 1+ mg/dL (Negative); Specific Grav Ur 1.023 (1.001-1.035); Squamous Epithelial Cell Urine Rare /hpf (Few); Urobilinogen Urine Negative mg/dL (<2.0); WBC Urine 51-75 /hpf
[2022-07-30 16:10] LABS: Prothrombin Time 13.2 Seconds (11.1-14.7)
[2022-07-30 16:11] LABS: Partial Thromboplastin Time 24.1 SECONDS (22.3-36.8); Troponin I < 0.012 ng/mL (0.000-0.034)
== END 2022-07-30 16:11 | disposition left against medical advice (07) ==
PROVIDERS: Emergency Medicine; Emergency Provider Emergency Medicine; PCP Family Medicine
DX: M79.10 Myalgia, unspecified site (principal); F03.90 Unspecified dementia, unspecified severity, without behavioral disturbance, psychotic disturbance, mood disturbance, and anxiety; F41.9 Anxiety disorder, unspecified; I25.10 Atherosclerotic heart disease of native coronary artery without angina pectoris; E78.5 Hyperlipidemia, unspecified; I10 Essential (primary) hypertension; I25.2 Old myocardial infarction; Z86.718 Personal history of other venous thrombosis and embolism; Z87.891 Personal history of nicotine dependence; Z95.5 Presence of coronary angioplasty implant and graft; M32.9 Systemic lupus erythematosus, unspecified; K21.9 Gastro-esophageal reflux disease without esophagitis; M81.0 Age-related osteoporosis without current pathological fracture
CPT/HCPCS: 36415; 70450; 71045; 80053; 81001; 84484; 85025; 85055; 85610; 85730; 87077; 87086; 87186; 93005; 99284

== ENCOUNTER 2022-10-15 00:22 | Day surgery (SDC) | payer MEDICARE, SELFPAY ==
--- NOTE | 2022-10-12 07:13 | PM.HPGS ---
History of Present Illness History of Present Illness Consent: Risks, benefits, and alternatives have been discussed and questions answered. Patient agrees to proceed with procedure. Chief complaint: ureteral cancer Narrative: Bianca Adams is a 87 year old female with a known chronic right ureteral stricture that is managed with a indwelling right ureteral stent.? She presents today for cystoscopy with ureteral stent exchange.? She is aware the risk including, not limited to, hematuria an adverse cardiopulmonary event Review of Systems Cardiovascular: Cardiovascular: Denies chest pain, Denies lightheadedness, Denies palpitations and Denies dyspnea Respiratory: Respiratory: Denies dyspnea Gastrointestinal: Gastrointestinal: Denies diarrhea, Denies nausea and Denies vomiting Genitourinary: Genitourinary: Denies hematuria and Denies dysuria Endocrine: Endocrine: Denies palpitations [facility] Past Medical History Medical History Anxiety Arthritis CAD (coronary artery disease) With 3 cardiac stents Chronic pancreatitis Closed fracture of neck of left femur DDD (degenerative disc disease) DVT (deep venous thrombosis) Left arm and 2009 Fibroids GERD (gastroesophageal reflux disease) History of chronic pancreatitis Due to autoimmune disease HLD (hyperlipidemia) [place] (hard of hearing) HTN (hypertension), malignant Hydronephrosis Chronic Hydronephrosis Left hip pain Lupus (systemic lupus erythematosus) Myocardial infarction Near syncope Orthostatic hypotension Osteoporosis Presence of pancreatic duct stent Skin cancer Status post resection UTI (urinary tract infection) Surgical History Surgical History H/O bilateral cataract extraction H/O cystoscopy H/O: hysterectomy History of back surgery History of biliary duct stent placement Two thousand five performed at [facility] History of cardiac catheterization History of coronary artery stent placement 3 cardiac stents History of urethral stent Family History Family History Father Family history of tuberculosis Mother Acute myocardial infarction Grandparent Cerebrovascular accident Sibling Carcinoma of colon Family history of Alzheimer's disease DVT prophylaxis Breast cancer Sister who is still living Son Diabetes mellitus Social History Social History Social History: 04/01/22 Pt wishes to be a full code The patient lives in her own home. Her son Tay resides with her. She is and has 4 children (2 boys and 2 girls). 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 She used to smoke a pack of cigarettes per day for 50 years but quit smoking in 2008. She used to like to drink alcohol on occasion and in moderation but had to stop after she got pancreatitis. She is independent in activities of daily living. 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 Her daughter Jessenia is her durable power of criminal defense attorney. Primary care physician is Dr. Kayode Lofton Smoking packs per day: 0.5 Smoking cigarettes per day: 10.0 Years smoked: 40 Smoking pack-years: 20.00 Smoking status: Former smoker Second hand tobacco smoke exposure: No Alcohol intake: former Substance use: never Substance use type: does not use Gender identity (if verbalized by the patient): Female Spiritual care concerns: No Agree to blood products: Yes Meds Home Medications and Allergies Home Medications Medication Instructions Recorded Confirmed Type atorvastatin 20 mg tablet 20 mg PO DAILY 10/15/20 04/01/22 History carvedilol 25 mg tablet 25 mg PO BID 10/15/20 04/01/22 History cqmgvy-fzybzzzj-qusjijp 1 cap PO PRN PRN with snacks 10/15/20 04/01/22 History 24,000-76,000-120,000 unit capsule,delayed rel (Creon)
--- NOTE | 2022-10-14 09:29 | PC.NURSE ---
Report to the Outpatient Waiting Room, entrance under the green pavilion located off [address], at time __0900 on date __10/15/22 . Planned Procedure Time: _1100 . Time changes happen often and if your time is changed the preop area will call you the afternoon before. - You and your visitor will be asked to self-screen and do not enter if you have any COVID symptoms. - Only one visitor is requested with a max of two and NO children visitors are allowed at this time. - The patient visitor may be requested to leave or wait in car when not with patient due to distancing restrictions. - A mask is optional within the hospital. Patients may have clear liquids (water, carbonated beverages, clear teas, apple juice) until 3 hours prior to surgery with a maximum of 20 ounces. - No food from midnight until time of surgery - Infants may have breast milk until 4 hours before surgery, infant formula 6 hours prior to surgery. - Children will be allowed to drink immediately following surgery. If applicable, please bring a bottle or sippy cup to assist with drinking. Juice, water, soda, and popsicles are readily available. For infants on formula, please bring formula the day of surgery. Pacifiers are allowed. Take the following medications with a SIP of water the morning of surgery: CARVEDILOL AND DULOXETINE Medications to discontinue per physician ___ASPIRIN PER DR PAULSON Date to take last dose Please no make-up, nail tajik, hairspray, perfume, deodorant, or body powder the day of surgery. No jewelry (including any body piercings) or valuables the day of surgery, leave them at home. Please take a shower or bath the night before, or the morning of, surgery with an antibacterial soap. Wear comfortable, loose fitting clothing. Children are encouraged to wear pajamas. - Jewelry must be removed prior to entering the operating room. Rings and piercings that are not removed may be cut off. - The hospital will not accept responsibility for valuables. - Please leave all valuables, including medications, at home the day of surgery. If you are going home after surgery, a licensed courtesy car driver must drive you home. - NO public transportation without another adult if you receive anesthesia. - We recommend that an adult stay with you for 24 hours following discharge. - We also recommend that you do not drive, make important decision, drink alcoholic beverages, or take any drugs that were not prescribed by your health care provider for at least 24 hours after your discharge time. Follow any additional instructions given to you from your surgeon. If you or anyone in your household have experienced Covid symptoms in the past week, please notify your surgeon or the nurse liaison at the phone number below for possible testing. Telephone instructions given to __PATIENT'S SON OVIDIO and asked if any additional questions and then verbalized understanding. Patient advised to call surgeon office or pre surgery nurse liaison [phone] if any additional questions.
[2022-10-14 09:32] VITALS: BMI 19.3
--- NOTE | ~2022-10-15 | XR_ITS ---
XR retrograde pyelo w/stent RT DATE: 10/15/2022 10:37 INDICATION: Right internal urinary stent exchange TECHNIQUE: 4 spot C-arm images of abdomen and pelvis 61.2 seconds fluoroscopy time [id number] [id number] COMPARISON: 04/06/2022 retrograde pyelogram FINDINGS: The urinary stent is noted. Surgical clips overlie right upper quadrant, likely due to chol ecystectomy. Left bipolar hip prosthesis. Dilated right renal calyces and right renal pelvis are noted after contrast material injection. Right internal urinary stent is in expected position. IMPRESSION: Right internal urinary stent in expected position Right hydronephrosis and pelviectasis Reviewed, dictated and finalized at [facility]. Reviewed, dictated and finalized at [facility]. NEER TECHNICIAN
--- NOTE | 2022-10-15 06:42 | WPDHPUPDATE1 ---
History and Physical Update Update Date/Time: 10/15/22 06:42 History and Physical has been reviewed, including an updated exam of the patient. There are NO changes in the patient's condition. Risks, benefits, and alternatives have been discussed and questions answered. Patient agrees to proceed with procedure.
[2022-10-15 08:42] VITALS: BP 147/105; PULSE 82; RESP 14; TEMP 37.1; O2SAT 96
--- NOTE | 2022-10-15 08:46 | WPDANESEPPF ---
Anes - Initial Pre Proc Eval Procedure: Operation Date: 10/15/22 10:00 Proposed Procedures p Cystoscopy, Right Ureteral Stent Exchange - Jaquan Ayoub MD Date/Time: 10/15/22 08:46 Surgeon: Jaquan Ayoub MD Pre Op Diagnosis: ureteral cancer Patient Data Age: 87 Gender: F Height: 1.68 m Weight: 54.45 kg Allergies Allergy/AdvReac Type Severity Reaction Status Date / Time meperidine Allergy Mild (DEMEROL) Verified 10/14/22 09:20 LEGS JERKING , FEELING FUNNY azathioprine Allergy Unknown Verified 10/14/22 09:20 Home Medications Medication Instructions Recorded Confirmed Type atorvastatin 20 mg tablet 20 mg PO DAILY 10/15/20 10/14/22 History carvedilol 25 mg tablet 25 mg PO BID 10/15/20 10/14/22 History meikcm-bkpftbpr-wktznrd 1 cap PO PRN PRN with snacks 10/15/20 10/14/22 History 24,000-76,000-120,000 unit capsule,delayed rel (Creon) lisinopril 2.5 mg tablet 5 mg PO DAILY 10/15/20 10/14/22 History pantoprazole 40 mg tablet,delayed 40 mg PO DAILY 10/15/20 10/14/22 History release aspirin 81 mg chewable tablet 81 mg PO DAILY 03/20/21 10/14/22 History duloxetine 30 mg capsule,delayed 30 mg PO DAILY 03/20/21 10/14/22 History release nitroglycerin 0.4 mg sublingual 0.4 mg sublingual Q5M PRN Chest 03/20/21 10/14/22 History tablet (Nitrostat) Pain pbrcie-faocaxdi-ypndiod 2 cap PO TIDWM 04/01/22 10/14/22 History 24,000-76,000-120,000 unit capsule,delayed rel (Creon) acetaminophen 325 mg tablet (Mapap 650 mg PO Q6H PRN Mild Pain (1-3) 04/09/22 10/14/22 Rx (acetaminophen)) Or Fever #60 tabs docusate sodium 100 mg capsule 100 mg PO DAILY #30 caps 04/09/22 10/14/22 Rx (Colace) hydrocodone 10 mg-acetaminophen 1 tablet PO Q6H PRN Pain #30 tabs 04/09/22 10/14/22 Rx 325 mg tablet Patient hx anesthesia problems: none Family hx anesthesia problems: none Results Review: All pre-operative results and documents have been reviewed as part of the pre-operative evaluation. [facility] Past Medical History Medical History Anxiety Arthritis CAD (coronary artery disease) With 3 cardiac stents Chronic pancreatitis Closed fracture of neck of left femur DDD (degenerative disc disease) DVT (deep venous thrombosis) Left arm and 2009 Fibroids GERD (gastroesophageal reflux disease) History of chronic pancreatitis Due to autoimmune disease HLD (hyperlipidemia) [place] (hard of hearing) HTN (hypertension), malignant Hydronephrosis Chronic Hydronephrosis Left hip pain Lupus (systemic lupus erythematosus) Myocardial infarction Near syncope Orthostatic hypotension Osteoporosis Presence of pancreatic duct stent Skin cancer Status post resection UTI (urinary tract infection) Surgical History Surgical History H/O bilateral cataract extraction H/O cystoscopy H/O: hysterectomy History of back surgery History of biliary duct stent placement Two thousand five performed at [facility] History of cardiac catheterization History of coronary artery stent placement 3 cardiac stents History of urethral stent Family History Family History Father Family history of tuberculosis Mother Acute myocardial infarction Grandparent Cerebrovascular accident Sibling Carcinoma of colon Family history of Alzheimer's disease DVT prophylaxis Breast cancer Sister who is still living Son Diabetes mellitus Social History Social History Social History: 04/01/22 Pt wishes to be a full code The patient lives in her own home. Her son Tay resides with her. She is and has 4 children (2 boys and 2 girls). 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 She used to smoke a pack of cigarettes per day for 50 years but quit smoking in 2008.
[2022-10-15] MEDS: LACTATED RINGERS 1,000 ML 30 ML IV CONT (08:51)
[2022-10-15] MEDS: ceFAZolin 2 GM/D5W 50 ML 2 GM/50 ML BAG IVPB (10:08)
[2022-10-15] MEDS: LIDOCAINE HCL 2% GEL UROJET 10 ML PKG MUCOUS MEM (10:23)
--- NOTE | 2022-10-15 10:36 | W.PM.PROC2 ---
Procedure Note - Detailed Date of Procedure 10/15/22 Pre-op Diagnosis Ureteral cancer Post-op Diagnosis Same Procedure Performed Cystoscopy, right ureteral stent removal, right retrograde pyelography and right ureteral stent replacement Surgeon Jaquan Ayoub MD Anesthesia General Description of Procedure Patient is brought to the operative suite where she has prepped and draped in routine sterile fashion while in dorsal lithotomy position. 2% xylocaine jelly was introduced intraurethrally and systemic sedation is administered per the anesthesia department. Tip of her indwelling stent is grasped and it was removed with ease. The bladder is, other than the indwelling stent, endoscopically normal. There was no intravesical foreign body or neoplasms, other than the stent. An angiographic catheter was used to obtain a right retrograde pyelogram to ensure proper positioning of the new stent a 4.8 F double-J ureteral stent is positioned with the proximal coil in the right renal pelvis and distal coil in the bladder. Patient tolerated the procedure well. Drains No Pathology Yes Condition Stable
[2022-10-15 10:40] VITALS: BP 125/83; PULSE 68; RESP 12; O2SAT 97
[2022-10-15 11:00] VITALS: BP 203/113; PULSE 70; RESP 14
[2022-10-15 11:25] VITALS: BP 219/134; PULSE 81; RESP 14
[2022-10-15] MEDS: hydrALAZINE HCL 20 MG/ML VIAL 10 MG IV PUSH (11:30)
[2022-10-15 11:45] VITALS: BP 185/109; PULSE 91; RESP 14
[2022-10-15 12:15] VITALS: BP 205/112; PULSE 95; RESP 16
--- NOTE | 2022-10-15 12:22 | SUR.PHASEII ---
1220 DR CURRY AWARE OF BP 205/112 & HR 95. PATIENT & PATIENT'S DAUGHTER REQUESTING TO GO HOME NOW AND TAKE HER REGULAR BP MEDICATION. DR CURRY OKAY WITH PATIENT GOING HOME AND TAKING REGULAR MEDICATIONS.
== END 2022-10-15 12:36 | disposition home or self-care (01) ==
PROVIDERS: PCP Family Medicine; Visit Provider Urology
PROC: (CPT 52352; principal; 2022-10-15 10:00)
DX: N13.5 Crossing vessel and stricture of ureter without hydronephrosis (principal); I10 Essential (primary) hypertension; M32.9 Systemic lupus erythematosus, unspecified; I25.2 Old myocardial infarction; M81.0 Age-related osteoporosis without current pathological fracture; F41.9 Anxiety disorder, unspecified; I25.10 Atherosclerotic heart disease of native coronary artery without angina pectoris; K21.9 Gastro-esophageal reflux disease without esophagitis; E78.5 Hyperlipidemia, unspecified; Z86.718 Personal history of other venous thrombosis and embolism; Z95.5 Presence of coronary angioplasty implant and graft; Z79.82 Long term (current) use of aspirin
CPT/HCPCS: 52332; 74420; A9270; C1758; C1769; C2617; J0360; J0690; J2370; J2704; J3010; J7120

== ENCOUNTER 2023-01-29 13:07 | Emergency (ER) | payer MEDICARE, SELFPAY ==
[2023-01-29 13:12] VITALS: BP 187/115; PULSE 79; RESP 18; TEMP 36.4; O2SAT 97
--- NOTE | 2023-01-29 14:55 | PC.NURSE ---
Pt gave information to people in Lobby who called on behalf of pt to Dr. Manzo office (where pt had appointment today who instruction pt to stay at ED because of pain and that appointment was missed and office was closing.) Son called and made aware to come and sit with pt in ED lobby for comfort.
--- NOTE | 2023-01-29 15:30 | PC.NURSE ---
Son came up to desk with pt and stated that they were leaving and may come back if condition worsens. Pt still reporting back pain at this time. Pt ambulatory out of ED without assistance with son at this time.
== END 2023-01-29 15:30 | disposition left against medical advice (07) ==
PROVIDERS: PCP Family Medicine
DX: R52 Pain, unspecified (principal)
CPT/HCPCS: 99199

== ENCOUNTER 2023-02-01 14:42 | Emergency (ER) | payer MEDICARE, SELFPAY ==
--- NOTE | 2023-02-01 15:01 | PC.NURSE ---
pt belligerent during registration. Pt yelling I was here 10 Goddamn hours yesterday and they didn't find nothing. I want Dr. Ayoub. Informed pt Dr. Ayoub is not and ED physician. Pt yelling because she wants to be seen Now . Pt goes back and forth of wanting to be seen and wanting to go home
[2023-02-01 15:07] VITALS: BP 157/116; PULSE 114; RESP 12; TEMP 36.6; O2SAT 97
--- NOTE | 2023-02-01 16:13 | PC.NURSE ---
Pt's daughter in ED looking for her pt not in waiting room. Other people in waiting room told daughter she got in a car. Called pt's son Emanuel [phone] and he said he picked her up and took her home.
== END 2023-02-01 16:13 | disposition left against medical advice (07) ==
LOC: ANHED 17:19
PROVIDERS: PCP Family Medicine
DX: R10.9 Unspecified abdominal pain (principal)
CPT/HCPCS: 99199

== ENCOUNTER 2023-02-08 19:25 | Inpatient (IN) | payer MEDICARE, SELFPAY ==
[2023-02-08] VITALS (17 sets, daily range): BP systolic 156–193; BP diastolic 97–104; PULSE 84–98; RESP 12–20; TEMP 36.6–36.9; O2SAT 91–97; BMI 18.3
--- NOTE | ~2023-02-08 | XR_ITS ---
EXAMINATION: XR chest 1V portable DATE: 02/10/2023 09:50 INDICATION: Hypoxia. Preoperative evaluation. TECHNIQUE: AP view of the chest was obtained. COMPARISON: Chest radiograph dated 07/30/[address] dated 04/04/2022 FINDINGS: Hyperexpansion of lungs. Small calcified nodules at the right apex and lateral right lower lung zone consistent with old granulomatous disease. No new airspace opacities, pulmonary edema, pleural effusi on or pneumothorax. Heart size is normal. Coronary artery stenting. Prominent atherosclerotic calcifi cation along the aorta. Postoperative change in right upper quadrant including cholecystectomy clips, biliary stent and cephalad loop of a right internal ureteral stent. IMPRESSION: 1. No acute cardiopulmonary disease. Reviewed, dictated and finalized at location [facility].
--- NOTE | ~2023-02-08 | XR_ITS ---
EXAM: XR hip RT 2V w AP pelvis DATE: 02/08/2023 20:02 HISTORY: R hip pain s/p fall FELL ONTO RIGHT HIP TODAY . COMPARISON: 05/04/2022. FINDINGS: Uncomplicated appearing left hip arthroplasty. Right ureteral stent. Surgical clips partia lly visualized in the upper midline abdomen. Atherosclerotic calcifications and pelvic phleboliths. O steopenia. Degenerative change in the lumbar spine, pubic symphysis, and right hip. Transverse subcap ital fracture of the right femoral neck, with mild posterior medial angulation. No other fracture det ected. IMPRESSION: Mildly angulated subcapital right femoral neck fracture. Reviewed, dictated and finalized at [facility].
--- NOTE | ~2023-02-08 | CT_ITS ---
EXAMINATION: CT cervical spine wo con DATE: 02/08/2023 20:23 INDICATION: fall TECHNIQUE: Computed tomography (CT) of the cervical spine was performed without intravenous contrast. Automated exposure control and iterative reconstruction technique were employed. The dose-length pro duct was 171.14 mGy-cm. COMPARISON: [facility] 04/04/2022. FINDINGS: Vertebral Body Alignment: Intact. Stable trace retrolisthesis at C5-6. Craniocervical and atlantoaxial alignment: Moderate degenerative change. Alignment intact. Osseous structures/fracture: No evidence of a lytic or blastic process in the visualized spine. No e vidence of acute fracture. Right C2-3 facet fusion. Cervical soft tissues: The paraspinal soft tissues planes are maintained. Biapical pleural scarring. Heavy arch calcification. Right upper lobe granuloma. Degenerative changes: Degenerative changes, without severe neural foraminal or central canal narrowin g. IMPRESSION: No acute fracture or traumatic malalignment in the cervical spine. Reviewed, dictated and finalized at location [facility].
--- NOTE | ~2023-02-08 | CT_ITS ---
EXAMINATION: CT brain wo con DATE: 02/08/2023 20:13 INDICATION: fall . TECHNIQUE: Computed tomography (CT) of the head was performed without intravenous contrast. The mA wa s adjusted according to patient size. Iterative reconstruction technique was employed. The dose-lengt h product was 1210.67 mGy-cm. COMPARISON: 12/09/2021. FINDINGS: Examination is limited by motion which persisted in repeated imaging attempts. No acute intracranial hemorrhage or extra-axial fluid collection. No hydrocephalus, mass, or herniation. No acute ischemic infarct. Unremarkable dural venous sinus attenuation. No acute osseous abnormality. Left frontal scalp laceration. The aerated spaces are clear. Moderate atrophy and chronic white matter change. Atherosclerotic intracranial calcification. Chronic lacunar infarcts of the left basal ganglia and anterior limb of the left internal capsule. Bilateral lens replacements. IMPRESSION: Motion limited examination. Within that constraint, no definite acute intracranial process. Reviewed, dictated and finalized at location [facility]. IMPRESSION: Motion limited examination. Within that constraint, no definite acute intracran ial process.
--- NOTE | ~2023-02-08 | CT_ITS ---
EXAMINATION: CT thoracic lumbar wo con DATE: 02/08/2023 20:23 INDICATION: fall . TECHNIQUE: Computed tomography (CT) of the thoracic and lumbar spine was performed without intravenou s contrast. The dose-length product was 701.79 mGy-cm. COMPARISON: CTPA 04-24; CT L-spine 03/23/2022 FINDINGS: THORACIC SPINE: Biapical pleural scarring. Calcified right upper lobe granuloma. Heavy aortic atherosclerotic calcifi cation. Heavy coronary artery calcification. Vertebral body alignment intact. Vertebral body heights preserved. No disc space narrowing. No traumatic malalignment or fracture. Visualized lung parenchyma is clear. Stable moderate compression deformity at T7. No severe central canal or neural foraminal n arrowing. LUMBAR SPINE: Biliary stent and drains. Partially visualized right ureteral stent. Right renal atrophy. Heavy ather osclerotic aspiration of the abdominal aorta with mild fusiform dilation. 5 nonrib-bearing lumbar-typ e vertebral bodies. Pedicles intact. Normal vertebral body alignment. L5 laminectomy defect. Multilev el moderate degenerative disc disease. Multilevel moderate facet arthropathy no severe central canal or neural foraminal narrowing. Normal facets and posterior elements. IMPRESSION: No acute fracture or traumatic malalignment detected in the thoracic or lumbar spine. Reviewed, dictated and finalized at location K.
--- NOTE | ~2023-02-08 | XR_ITS ---
EXAMINATION: XR hip RT min 2V DATE: 02/10/2023 16:34 INDICATION: Right hip arthroplasty TECHNIQUE: AP portable view of the right hip FINDINGS: There is a right bipolar hip arthroplasty in expected position. Subcutaneous gas with soft tissue swelling are consistent with recent surgery. Incidental note is made of a right internal uret eral stent, partially visualized IMPRESSION: 1. Recent right bipolar hip arthroplasty. Reviewed, dictated and finalized at location B.
--- NOTE | ~2023-02-08 | XR_ITS ---
Portable chest x-ray Comparison: 02/10/2023 Clinical History: Shortness of breath Findings: Minimal left pleural effusion is probably present. Probable COPD. Stable calcified right b asilar granuloma. Cardiomediastinal silhouette is stable. Bones and soft tissues are unremarkable. Impression: Minimal left pleural effusion. COPD. Reviewed, dictated and finalized at location . Impression: Minimal left pleural effusion. COPD.
--- NOTE | 2023-02-08 19:57 | ED.FALL ---
HPI - Fall General Chief Complaint: Fall Stated Complaint: hip pain s/p fall Time Seen by Provider: 02/08/23 19:29 History of Present Illness HPI Narrative: Patient is an 87-year-old female presenting after a fall. Patient states that she tripped on something in her kitchen and was unable to catch herself. States that she tried to reach out with her right hand but she was unable to grab the counter and she fell to the floor. She states that she did not strike her head or lose consciousness. States that she has had right hip pain since falling. States that she broke her left hip last year and she is concerned that she now broke her right hip. She denies chest pain, shortness of breath, lightheadedness, abdominal pain, nausea or vomiting. Denies pain except in her lower back and right hip. Related Data Home Medications Medication Instructions Recorded Confirmed atorvastatin 20 mg tablet 20 mg PO DAILY 10/15/20 02/08/23 carvedilol 25 mg tablet 25 mg PO BID 10/15/20 02/08/23 lisinopril 2.5 mg tablet 5 mg PO DAILY 10/15/20 02/08/23 pantoprazole 40 mg tablet,delayed 40 mg PO DAILY 10/15/20 02/08/23 release aspirin 81 mg chewable tablet 81 mg PO DAILY 03/20/21 02/08/23 nitroglycerin 0.4 mg sublingual 0.4 mg sublingual Q5M PRN Chest 03/20/21 02/08/23 tablet (Nitrostat) Pain rjxdcc-lcysgedf-gcarzvf 2 cap PO TIDWM 04/01/22 02/08/23 24,000-76,000-120,000 unit capsule,delayed rel (Creon) hydrocodone 10 mg-acetaminophen 1 tablet PO Q6H PRN Pain (Scale 02/08/23 02/08/23 325 mg tablet Score 4-6) Allergies Allergy/AdvReac Type Severity Reaction Status Date / Time meperidine Allergy Mild (DEMEROL) Verified 02/08/23 19:48 LEGS JERKING , FEELING FUNNY azathioprine Allergy Unknown Verified 02/08/23 19:48 Review of Systems Review of Systems: All systems reviewed & are unremarkable except as noted in HPI and below PMFSH Past Medical History Medical History (Updated 02/10/23 @ 21:03 by Jenny Vyas MD) Abdominal aortic aneurysm, without rupture, unspecified Anxiety Arthritis Atherosclerosis of aorta Atherosclerotic heart disease of [place] coronary artery without angina pectoris Chronic kidney disease, stage 3a Chronic pancreatitis DDD (degenerative disc disease) Gastro-esophageal reflux disease without esophagitis GERD (gastroesophageal reflux disease) History of chronic pancreatitis Due to autoimmune disease [place] (hard of hearing) Hydronephrosis Hydronephrosis with ureteral stricture, 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 with stage 1 through stage 4 chronic kidney disease, or unspecified chronic kidney disease Major depressive disorder, single episode, moderate Mild protein-calorie malnutrition Occlusion and stenosis of bilateral carotid arteries Osteoporosis Other spondylosis with myelopathy, lumbar region Presence of functional implant, unspecified Presence of pancreatic duct stent Pure hypercholesterolemia, unspecified Retroperitoneal fibrosis Skin cancer Status post resection UTI (urinary tract infection) Surgical History Surgical History H/O bilateral cataract extraction H/O cystoscopy H/O: hysterectomy History of back surgery History of biliary duct stent placement Two thousand five performed at [facility] History of cardiac catheterization History of coronary artery stent placement 3 cardiac stents History of urethral stent Presence of urogenital implants Family History Family History Father Family history of tuberculosis Mother Acute myocardial infarction Grandparent Cerebrovascular accident Sibling Carcinoma of colon Family history of Alzheimer's disease DVT prophylaxis Breast cancer Sister who is still living Son Diabetes mellitus Social History Social History Social
[2023-02-08] MEDS: MORPHINE SULFATE (*CRX) 4 MG/ML INJ IV PUSH (21:04)
--- NOTE | 2023-02-08 21:15 | PM.IMHP ---
H&P: HPI History of Present Illness Date/Time: 02/08/23 21:15 Chief Complaint: fall Narrative: EXAMINATION: CT brain wo con DATE: 02/08/2023 20:13 INDICATION: fall . TECHNIQUE: Computed tomography (CT) of the head was performed without intravenous contrast. The mA was adjusted according to patient size. Iterative reconstruction technique was employed. The dose-length product was 1210.67 mGy-cm. COMPARISON: 12/09/2021. FINDINGS: Examination is limited by motion which persisted in repeated imaging attempts. No acute intracranial hemorrhage or extra-axial fluid collection. No hydrocephalus, mass, or herniation. No acute ischemic infarct. Unremarkable dural venous sinus attenuation. No acute osseous abnormality. Left frontal scalp laceration. The? aerated spaces are clear. Moderate atrophy and chronic white matter change. Atherosclerotic intracranial calcification. Chronic lacunar infarcts of the left basal ganglia and anterior limb of the left internal capsule. Bilateral lens replacements. IMPRESSION:? Motion limited examination. Within that constraint, no definite acute intracranial process. EXAM:? XR hip RT 2V w AP pelvis DATE: 02/08/2023 20:02 HISTORY: R hip pain s/p fall FELL ONTO RIGHT HIP TODAY . COMPARISON:? 05/04/2022. FINDINGS:? Uncomplicated appearing left hip arthroplasty. Right ureteral stent. Surgical clips partially visualized in the upper midline abdomen. Atherosclerotic calcifications and pelvic phleboliths. Osteopenia. Degenerative change in the lumbar spine, pubic symphysis, and right hip. Transverse subcapital fracture of the right femoral neck, with mild posterior medial angulation. No other fracture detected. IMPRESSION: Mildly angulated subcapital right femoral neck fracture. [facility] Past Medical History Medical History (Updated 02/08/23 @ 23:28 by Jj Murguia MD) Abdominal aortic aneurysm, without rupture, unspecified Anxiety Arthritis Atherosclerosis of aorta Atherosclerotic heart disease of [place] coronary artery without angina pectoris Chronic kidney disease, stage 3a Chronic pancreatitis DDD (degenerative disc disease) Gastro-esophageal reflux disease without esophagitis GERD (gastroesophageal reflux disease) History of chronic pancreatitis Due to autoimmune disease [place] (hard of hearing) Hydronephrosis Hydronephrosis with ureteral stricture, 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 with stage 1 through stage 4 chronic kidney disease, or unspecified chronic kidney disease Major depressive disorder, single episode, moderate Mild protein-calorie malnutrition Occlusion and stenosis of bilateral carotid arteries Osteoporosis Other spondylosis with myelopathy, lumbar region Presence of functional implant, unspecified Presence of pancreatic duct stent Pure hypercholesterolemia, unspecified Retroperitoneal fibrosis Skin cancer Status post resection UTI (urinary tract infection) Surgical History Surgical History H/O bilateral cataract extraction H/O cystoscopy H/O: hysterectomy History of back surgery History of biliary duct stent placement Two thousand five performed at [facility] History of cardiac catheterization History of coronary artery stent placement 3 cardiac stents History of urethral stent Presence of urogenital implants Family History Family History Father Family history of tuberculosis Mother Acute myocardial infarction Grandparent Cerebrovascular accident Sibling Carcinoma of colon Family history of Alzheimer's disease DVT prophylaxis Breast cancer Sister who is still living Son Diabetes mellitus Social History Social History Social History: 04/01/22 Pt wishes to be a full code The patient lives in her own home. Her son Tay resides with her. She is
[2023-02-08 21:42] LABS: Basophils Percent Auto 0.4 % (0.2-1.2); Eosinophils Absolute Auto 0.1 K/mm3 (0-0.3); Eosinophils Percent Auto 1.3 % (0-4.4); Hematocrit 39.4 % (37.0-47.0); Hemoglobin 12.5 g/dL (12.0-15.0); Immature Granulocyte Absolute 0.05 K/mm3 (0.00-0.031); Immature Granulocyte Percent A 0.5 % (0-0.5); Lymphocytes Absolute Auto 0.79 K/mm3 (0.9-3.2); Lymphocytes Percent Auto 7.6 % (18.3-44.2); Mean Corpuscular HGB Conc 31.7 g/dl (32-36); Mean Corpuscular Hemoglobin 30.1 pg (26-34); Mean Corpuscular Volume 94.9 fl (80-100); Mean Platelet Volume 8.8 fl (7.4-10.4); Monocytes Absolute Auto 0.6 K/mm3 (0.1-0.6); Monocytes Percent Auto 5.4 % (2.6-8.5); Neutrophils Absolute Auto 8.8 K/mm3 (1.3-6.7); Neutrophils Percent Auto 84.8 % (45.5-73.1); Platelet Count Result 142 k/mm3 (150-375); Red Blood Count 4.15 M/mm3 (4.2-5.4); Red Cell Distribution Width 13.4 % (11.5-14.5); White Blood Count 10.4 K/mm3 (4.5-10.0)
[2023-02-08 21:52] LABS: Anion Gap 9 mmol/L (8-16); Blood Urea Nitrogen 37 mg/dL (7-17); Carbon Dioxide 25 mmol/L (22-30); Chloride 101 mmol/L (98-107); Estimated CRCL calculation 31 ml/min; Estimated Glomerular Filt Rate 59; Glucose 156 mg/dL (65-110); Sodium 135 mmol/L (137-145)
[2023-02-08 21:53] LABS: Prothrombin Time 13.6 Seconds (11.1-14.7)
[2023-02-08 21:54] LABS: Partial Thromboplastin Time 27.4 SECONDS (22.3-36.8)
[2023-02-08] MEDS: HYDROmorphone HCL INJ (*CRX) 1 MG/ML SYR 0.5 MG IV PUSH (22:04)
--- NOTE | 2023-02-08 22:27 | PC.NURSE ---
After Dilaudid administration pts o2 stats dropped to high 80s. pt placed on 2L at this time, current o2 stats in high 90s.
--- NOTE | 2023-02-08 22:43 | PC.NURSE ---
Dr. Vyas made aware of pt's blood pressures at this time.
--- NOTE | 2023-02-08 23:08 | ADMGEN ---
This patient, Bianca Adams, was admitted to 2 Medical Room 254-01. Patient/family oriented to hospital policies and general routines including ID bracelet, bed and alarms, visiting hours, pain management, procedures, bathroom and other care routines, personal items, smoking policy, room service/diet, and visiting hours. Information on how to activate the Rapid Response Team has been discussed. Patient/Family are encouraged to report perceived risks to care and to ask questions if they do not understand what they are told or what they should do.
[2023-02-09] VITALS (10 sets, daily range): BP systolic 80–144; BP diastolic 60–83; PULSE 70–90; RESP 16–20; TEMP 36.6–36.9; O2SAT 71–98
[2023-02-09] MEDS: carvediloL 25 MG TABLET PO ×3 (00:33→17:49)
[2023-02-09] MEDS: HYDROcodone/acetaminophen (*CRX) 10-325 MG TABLET 1 TAB PO ×2 (00:36→08:42)
[2023-02-09] MEDS: HYDROmorphone HCL INJ (*CRX) 1 MG/ML SYR IV PUSH ×2 (05:15→10:12)
[2023-02-09] MEDS: PANTOPRAZOLE 40 MG TABLET PO (08:41)
[2023-02-09] MEDS: LIPASE/AMYLASE/PROTEASE 12,000 UNITS CAP 4 CAP PO ×3 (08:41→17:49)
[2023-02-09] MEDS: ATORVASTATIN 20 MG TABLET PO (08:42)
[2023-02-09] MEDS: DOCUSATE SODIUM 100 MG CAPSULE PO (08:42)
[2023-02-09] MEDS: lisinopriL 5 MG TABLET PO (08:42)
--- NOTE | 2023-02-09 09:53 | PM.CNOR ---
Assessment and Plan Assessment and plan (1) Hip fracture: Qualifiers: Encounter type: initial encounter Fracture type: closed Laterality: right Qualified Code(s): S72.001A - Fracture of unspecified part of neck of right femur, initial encounter for closed fracture Code(s): S72.009A - Fracture of unspecified part of neck of unspecified femur, initial encounter for closed fracture Status: Acute Assessment and Plan: History, exam and radiographs reviewed with the patient/POA. Radiographs of the right hip from the ED reveal a subcapital femoral neck fracture. Fracture type, condition, nature, etiology and course of natural history discussed. Conservative and operative treatment options reviewed as well as the risks and benefits of both. Patient/POA desires operative treatment. Discussed Right hip bipolar hemiarthroplasty Risks of surgery including but not limited to neurovascular damage, wound complications, blood clot, pulmonary embolus, stroke, myocardial infarction, anesthetic risks up to and including were reviewed. Continued pain and possible dysfunction were explained. No guarantees were offered. The patient understands and wishes to proceed. Plan: Right hip bipolar hemiarthroplasty by Dr. Raza NPO at midnight. Bedrest. Pain control. Ice. Surgery planned for tomorrow with Dr. Raza at 1:30 Dispo: Care coordination consult to begin planning for possible [facility] vs. SNF at discharge Plan Reviewed radiographs, assessment, patient/POA concerns with attending MD, Dr. Raza. Agrees with current plan of care as indicated above. No further recommendations at this time. History of Present Illness HPI Consult date: 02/09/23 Consult reason: fracture Chief complaint: R Hip Fracture Narrative: 87 year old female presented to the [facility] ED after a fall at home in the kitchen. Patient is a poor historian today due to medications for pain control. Discussed history with patient's POA Jessenia. Radiographs from the ED reveal a subcapital right femoral neck fracture. History of left hip hemiarthroplasty in [address] Neumann. Patient admitted for orthopedic consult for right hip fracture and pain control. 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[place] (hard of hearing) Hydronephrosis Hydronephrosis with ureteral stricture, 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 with stage 1 through stage 4 chronic kidney disease, or unspecified chronic kidney disease Major depressive disorder, single episode, moderate Mild protein-calorie malnutrition Occlusion and stenosis of bilateral carotid arteries Osteoporosis Other spondylosis with myelopathy, lumbar region Presence of functional implant, unspecified Presence of pancreatic duct stent Pure hypercholesterolemia, unspecified Retroperitoneal fibrosis Skin cancer Status post resection UTI (urinary tract infection) Surgical History Surgical History H/O bilateral cataract extraction H/O cystoscopy H/O: hysterectomy History of back surgery History of biliary duct stent placement Two thousand five performed at [facility] History of cardiac catheterization History of coronary artery stent placement 3 cardiac stents History of urethral stent Presence of urogenital implants Family History Family History (Reviewed
--- NOTE | 2023-02-09 11:11 | PCPTNOTE ---
Pt to have ortho surgery. Please re-order when pt is appropriate for skilled therapy.
--- NOTE | 2023-02-09 15:00 | P.PNIM_ITS ---
Progress Note: A&P Assessment and Plan (1) Fall from ground level: Code(s): W18.30XA - Fall on same level, unspecified, initial encounter Status: Inactive Assessment and Plan: * presented after a fall and tripped on something in the kitchen * Hip/Pel mildly angulated subcapital right femoral neck fracture * PT/OT when appropriate * Pain control (2) Hip fracture: Qualifiers: Encounter type: initial encounter Fracture type: closed Laterality: right Qualified Code(s): S72.001A - Fracture of unspecified part of neck of right femur, initial encounter for closed fracture Code(s): S72.009A - Fracture of unspecified part of neck of unspecified femur, initial encounter for closed fracture Status: Acute Assessment and Plan: * Hip/Pel mildly angulated subcapital right femoral neck fracture * Ortho consulted * Surgical intervention planned for tomorrow * Pain management per ortho * Pt/OT when appropriate * DVT per ortho (3) Gastro-esophageal reflux disease without esophagitis: Code(s): K21.9 - Gastro-esophageal reflux disease without esophagitis Status: Acute Assessment and Plan: * Continue pantoprazole (4) Abdominal aortic aneurysm, without rupture, unspecified: Qualifiers: Abdominal aorta location: unspecified Qualified Code(s): I71.40 - Abdominal aortic aneurysm, without rupture, unspecified Code(s): I71.40 - Abdominal aortic aneurysm, without rupture, unspecified Status: Acute Assessment and Plan: * Stable * Outpatient follow up * Close eye on blood pressure (5) Chronic kidney disease, stage 3a: Code(s): N18.31 - Chronic kidney disease, stage 3a Status: Acute Assessment and Plan: * BUN/Cr stable at 37/0.910 * GFR 59 * Avoid nephrotoxic medications * Renal dose medications * Adjust therapy as indicated (6) DDD (degenerative disc disease): Qualifiers: Spinal region: lumbar Qualified Code(s): M51.36 - Other intervertebral disc degeneration, lumbar region Status: Acute Assessment and Plan: * Ct of the spine stable with no acute fracture * Stable Time Spent With Patient Time: 42 minutes Time with patient: Greater than 35 minutes Subjective Date/time seen: 02/09/23 12:40 Interval history: Patient is an 87-year-old female with a past medical history of AAA, chronic kidney disease, hypertension who presented to the ED after a fall. Currently patient is doing well resting in bed. She denies any current chest pain, shortness a breath, nausea, vomiting, diarrhea constipation. Currently her pain level is Well honey it hurts. She otherwise is doing ok Review of Systems Review of Systems: All systems reviewed & are unremarkable except as noted in HPI and below Exam Narrative: General: well-nourished, well-appearing [id number] female, Lying in bed, comfortable, NARD Neuro: awake, alert and oriented x4, speech clear, no focal neuro deficits noted HEENMT: normocephalic, atraumatic, EOMI, sclerae anicteric, moist oral mucosa Respiratory: Clear to auscultation bilaterally without crackles, rhonchi or wheezes, nonlabored breathing Cardio: regular rate, regular rhythm with S1-S2 Abdomen: nondistended, normoactive bowel sounds, soft, nontender to palpation Extremit
--- NOTE | 2023-02-09 15:00 | PM.IMPN ---
Progress Note: A&P Assessment and Plan (1) Fall from ground level: Code(s): W18.30XA - Fall on same level, unspecified, initial encounter Status: Inactive Assessment and Plan: presented after a fall and tripped on something in the kitchen Hip/Pel mildly angulated subcapital right femoral neck fracture PT/OT when appropriate Pain control (2) Hip fracture: Qualifiers: Encounter type: initial encounter Fracture type: closed Laterality: right Qualified Code(s): S72.001A - Fracture of unspecified part of neck of right femur, initial encounter for closed fracture Code(s): S72.009A - Fracture of unspecified part of neck of unspecified femur, initial encounter for closed fracture Status: Acute Assessment and Plan: Hip/Pel mildly angulated subcapital right femoral neck fracture Ortho consulted Surgical intervention planned for tomorrow Pain management per ortho Pt/OT when appropriate DVT per ortho (3) Gastro-esophageal reflux disease without esophagitis: Code(s): K21.9 - Gastro-esophageal reflux disease without esophagitis Status: Acute Assessment and Plan: Continue pantoprazole (4) Abdominal aortic aneurysm, without rupture, unspecified: Qualifiers: Abdominal aorta location: unspecified Qualified Code(s): I71.40 - Abdominal aortic aneurysm, without rupture, unspecified Code(s): I71.40 - Abdominal aortic aneurysm, without rupture, unspecified Status: Acute Assessment and Plan: Stable Outpatient follow up Close eye on blood pressure (5) Chronic kidney disease, stage 3a: Code(s): N18.31 - Chronic kidney disease, stage 3a Status: Acute Assessment and Plan: BUN/Cr stable at 37/0.910 GFR 59 Avoid nephrotoxic medications Renal dose medications Adjust therapy as indicated (6) DDD (degenerative disc disease): Qualifiers: Spinal region: lumbar Qualified Code(s): M51.36 - Other intervertebral disc degeneration, lumbar region Status: Acute Assessment and Plan: Ct of the spine stable with no acute fracture Stable Time Spent With Patient Time: 42 minutes Time with patient: Greater than 35 minutes Subjective Date/time seen: 02/09/23 12:40 Interval history: Patient is an 87-year-old female with a past medical history of AAA, chronic kidney disease, hypertension who presented to the ED after a fall. Currently patient is doing well resting in bed. She denies any current chest pain, shortness a breath, nausea, vomiting, diarrhea constipation. Currently her pain level is Well honey it hurts. She otherwise is doing ok Review of Systems Review of Systems: All systems reviewed & are unremarkable except as noted in HPI and below Exam Narrative: General: well-nourished, well-appearing [id number] female, Lying in bed, comfortable, NARD Neuro: awake, alert and oriented x4, speech clear, no focal neuro deficits noted HEENMT: normocephalic, atraumatic, EOMI, sclerae anicteric, moist oral mucosa Respiratory: Clear to auscultation bilaterally without crackles, rhonchi or wheezes, nonlabored breathing Cardio: regular rate, regular rhythm with S1-S2 Abdomen: nondistended, normoactive bowel sounds, soft, nontender to palpation Extremities: no edema, erythema, or tenderness to palpation, DP pulses 2+ bilaterally, legs are straight with some mild swelling Skin: no rashes or lesions, warm and dry Psych: appropriate mood and affect, judgment and insight intact Objective Data Vital Signs Vital Signs: Vital Signs - 24 hr 02/08/23 19:25 02/08/23 19:34 02/08/23 19:36 Temperature 98.4 F Pulse Rate 85 87 86 Respiratory Rate 12 16 13 Blood Pressure 156/101 H Pulse Oximetry 96 91 Oxygen Delivery Room Air Oxygen Flow Rate 02/08/23 19:45 02/08/23 19:47 02/08/23 20:0
[2023-02-09] MEDS: SODIUM CHLORIDE 0.9% IV 1,000 ML 999 ML IV CONT (17:11)
[2023-02-09] MEDS: LACTATED RINGERS 1,000 ML 75 ML IV CONT (17:52)
[2023-02-10] VITALS (18 sets, daily range): BP systolic 87–162; BP diastolic 22–99; PULSE 69–103; RESP 12–27; TEMP 36.4–37.4; O2SAT 90–100
--- NOTE | 2023-02-10 06:30 | PC.NURSE ---
COMPUTER DOWN TIME FROM 2149- NOW
--- NOTE | 2023-02-10 07:21 | WPDHPUPDATE1 ---
History and Physical Update Update Date/Time: 02/10/23 07:21 History and Physical has been reviewed, including an updated exam of the patient. There are NO changes in the patient's condition. Risks, benefits, and alternatives have been discussed and questions answered. Patient agrees to proceed with procedure.
[2023-02-10] MEDS: carvediloL 25 MG TABLET PO (08:09)
[2023-02-10] MEDS: LACTATED RINGERS 1,000 ML 75 ML IV CONT (08:10)
[2023-02-10] MEDS: HYDROmorphone HCL INJ (*CRX) 1 MG/ML SYR IV PUSH (08:12)
[2023-02-10 09:09] LABS: Anion Gap 6 mmol/L (8-16); Blood Urea Nitrogen 46 mg/dL (7-17); Carbon Dioxide 23 mmol/L (22-30); Chloride 104 mmol/L (98-107); Estimated CRCL calculation 32 ml/min; Estimated Glomerular Filt Rate 59; Glucose 120 mg/dL (65-110); Potassium 4.2 mmol/L (3.4-5.0); Sodium 133 mmol/L (137-145)
[2023-02-10 09:51] LABS: Hemoglobin 11.2 g/dL (12.0-15.0); Immature Platelet Fraction Pct 2.7 % (0.9-11.2); Mean Corpuscular HGB Conc 29.5 g/dl (32-36); Mean Corpuscular Hemoglobin 29.5 pg (26-34); Mean Platelet Volume 9.8 fl (7.4-10.4); Platelet Count Result 74 k/mm3 (150-375); Red Cell Distribution Width 13.5 % (11.5-14.5); White Blood Count 8.7 K/mm3 (4.5-10.0)
[2023-02-10] MEDS: TRANEXAMIC ACID 1,000MG/ISO100 1,000 MG/100 ML BAG 200 MG IVPB (12:49)
--- NOTE | 2023-02-10 13:21 | PM.IMPN ---
Progress Note: A&P Assessment and Plan (1) Fall from ground level: Code(s): W18.30XA - Fall on same level, unspecified, initial encounter Status: Inactive Assessment and Plan: Patient suffered a mechanical fall, tripped in her kitchen Suffered hip fracture as described below Implement fall precautions Will need PT/OT postoperatively (2) Hip fracture: Qualifiers: Encounter type: initial encounter Fracture type: closed Laterality: right Qualified Code(s): S72.001A - Fracture of unspecified part of neck of right femur, initial encounter for closed fracture Code(s): S72.009A - Fracture of unspecified part of neck of unspecified femur, initial encounter for closed fracture Status: Acute Assessment and Plan: Hip/pelvis x-ray showed mildly angulated subcapital right femoral neck fracture Appreciate orthopedic surgery consultation Planning for surgical repair this afternoon Continue analgesics as needed PT/OT postoperatively DVT prophylaxis defer to Orthopedic surgery (3) Gastro-esophageal reflux disease without esophagitis: Code(s): K21.9 - Gastro-esophageal reflux disease without esophagitis Status: Chronic Assessment and Plan: No acute issues Continue pantoprazole (4) Chronic kidney disease, stage 3a: Code(s): N18.31 - Chronic kidney disease, stage 3a Status: Chronic Assessment and Plan: Renal function is stable at this time Continue to monitor BMP (5) Hypoxia: Code(s): R09.02 - Hypoxemia Status: Acute Assessment and Plan: Patient mild desaturation to 87% on room air Currently requiring 2 L supplemental O2 and maintaining adequate O2 sats CXR with no acute cardiopulmonary finding Continue incentive spirometry Monitor O2 sats and wean oxygen as tolerated Subjective Date/time seen: 02/10/23 13:21 Interval history: Date of service: 02/10/23 Bianca Adams is an 87 year old female with a history of hypertension, CKD, AAA, GERD, and several other comorbities who is seen in follow up for right hip fracture. She feels well today. She states her pain is well controlled at this time. She denies nausea or vomiting. She has been NPO for surgery today. She denies shortness of breath, cough, or chest pain. Review of Systems Review of Systems: All systems reviewed & are unremarkable except as noted in HPI and below Exam Narrative: General: Well-nourished, well-appearing 87-year-old female, sitting up in bed, comfortable Neuro: awake, alert and oriented x3, speech clear, no focal neuro deficits noted, forgetful HEENMT: normocephalic, atraumatic, EOMI, sclerae anicteric, hard of hearing Respiratory: clear to auscultation bilaterally, nonlabored breathing Cardio: regular rate, regular rhythm with S1-S2 Abdomen: nondistended, normoactive bowel sounds, soft, nontender to palpation Extremities: no edema, erythema, or tenderness to palpation, DP pulses 2+ bilaterally Skin: scattered ecchymosis of bilateral upper extremities, no rashes or lesions, warm and dry Psych: pleasantly confused, judgment and insight fair Objective Data Vital Signs Vital Signs: Vital Signs - 24 hr 02/09/23 17:49 02/09/23 16:31 02/09/23 19:38 Temperature 98.5 F Pulse Rate 73 73 Respiratory Rate 16 Blood Pressure 80/60 L 144/75 H Pulse Oximetry 98 Oxygen Delivery Oxygen Flow Rate 02/09/23 21:06 02/10/23 06:00 02/10/23 08:01 Temperature 98.2 F 97.6 F Pulse Rate 71 69 Respiratory Rate 20 16 Blood Pressure 95/62 L 119/72 162/99 H Pulse Oximetry 94 92 Oxygen Delivery Oxygen Flow Rate 02/10/23 08:09 02/10/23 08:00 02/10/23 11:24 Temperature Pulse Rate 71 77 Respiratory Rate Blood Pressure Pulse Oximetry 92 93 Oxygen Delivery Nasal Cannula Oxygen Flow Rate 2 02/10/23 12:22 Temperature 99.4 F Pulse Rate 71 Respiratory Rate 17 Blood Pressure
--- NOTE | 2023-02-10 13:36 | WPDANESEPPF ---
Anes - Initial Pre Proc Eval Procedure: Operation Date: 02/10/23 13:30 Proposed Procedures p Right Bipolar Hip Replacement - Jorge Raza MD Date/Time: 02/10/23 13:36 Surgeon: Tash Li PA-C Pre Op Diagnosis: R Hip Fracture Patient Data Age: 87 Gender: F Height: 1.68 m Weight: 51.5 kg Last Vital Signs Temp 99.4 F 02/10/23 12:22 Pulse 71 02/10/23 12:22 Resp 17 02/10/23 12:22 BP 124/78 02/10/23 12:22 Pulse Ox 94 02/10/23 12:22 O2 Del Method Nasal Cannula 02/10/23 12:22 O2 Flow Rate 2 02/10/23 12:22 Allergies Allergy/AdvReac Type Severity Reaction Status Date / Time meperidine Allergy Mild (DEMEROL) Verified 02/08/23 19:48 LEGS JERKING , FEELING FUNNY azathioprine Allergy Unknown Verified 02/08/23 19:48 Home Medications Medication Instructions Recorded Confirmed Type atorvastatin 20 mg tablet 20 mg PO DAILY 10/15/20 02/08/23 History carvedilol 25 mg tablet 25 mg PO BID 10/15/20 02/08/23 History lisinopril 2.5 mg tablet 5 mg PO DAILY 10/15/20 02/08/23 History pantoprazole 40 mg tablet,delayed 40 mg PO DAILY 10/15/20 02/08/23 History release aspirin 81 mg chewable tablet 81 mg PO DAILY 03/20/21 02/08/23 History nitroglycerin 0.4 mg sublingual 0.4 mg sublingual Q5M PRN Chest 03/20/21 02/08/23 History tablet (Nitrostat) Pain [id number] 2 cap PO TIDWM 04/01/22 02/08/23 History 24,000-76,000-120,000 unit capsule,delayed rel (Creon) acetaminophen 325 mg tablet (Mapap 650 mg PO Q6H PRN Mild Pain (1-3) 04/09/22 02/08/23 Rx (acetaminophen)) Or Fever #60 tabs docusate sodium 100 mg capsule 100 mg PO DAILY #30 caps 04/09/22 02/08/23 Rx (Colace) hydrocodone 10 mg-acetaminophen 1 tablet PO Q6H PRN Pain (Scale 02/08/23 02/08/23 History 325 mg tablet Score 4-6) Laboratory Tests 02/10/23 08:41 WBC 8.7 K/mm3 (4.5-10.0) RBC 3.80 L M/mm3 (4.2-5.4) Hgb 11.2 L g/dL (12.0-15.0) Hct 38.0 % (37.0-47.0) MCV 100.0 D fl (80-100) MCH 29.5 pg (26-34) MCHC 29.5 L g/dl (32-36) RDW 13.5 % (11.5-14.5) Plt Count 74 L k/mm3 (150-375) MPV 9.8 fl (7.4-10.4) % Immature Plt Fraction 2.7 % (0.9-11.2) Sodium 133 L mmol/L (137-145) Potassium 4.2 mmol/L (3.4-5.0) Chloride 104 mmol/L (98-107) Carbon Dioxide 23 mmol/L (22-30) Anion Gap 6 L mmol/L (8-16) BUN 46 H mg/dL (7-17) Creatinine 0.90 mg/dL (0.7-1.0) Estim Creat Clear Calc 32 ml/min Estimated GFR 59 (59 - ) Glucose 120 H mg/dL (65-110) Calcium 8.0 L mg/dL (8.4-10.2) Patient hx anesthesia problems: none Family hx anesthesia problems: none Results Review: All pre-operative results and documents have been reviewed as part of the pre-operative evaluation. [facility] Past Medical History Medical History Abdominal aortic aneurysm, without rupture, unspecified Anxiety Arthritis Atherosclerosis of aorta Atherosclerotic heart disease of [place] coronary artery without angina pectoris Chronic kidney disease, stage 3a Chronic pancreatitis DDD (degenerative disc disease) Gastro-esophageal reflux disease without esophagitis GERD (gastroesophageal reflux disease) History of chronic pancreatitis Due to autoimmune disease [place] (hard of hearing) Hydronephrosis Hydronephrosis with ureteral stricture, 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 with stage 1 through stage 4 chronic kidney disease, or unspecified chronic kidney disease Major depressive disorder, single episode, moderate Mild protein-calorie malnutrition Occlusion and stenosis of bilateral carotid arteries Osteoporosis Other spondylosis with myelopathy, lumbar region Presence of functional implant, unspecified Presence of pancreatic duct stent Pure hypercholesterolemia, unspecified Retroperitoneal fibrosis Skin cancer Status po
[2023-02-10] MEDS: ceFAZolin 2 GM/D5W 50 ML 2 GM/50 ML BAG IVPB (13:50)
[2023-02-10] MEDS: TRANEXAMIC ACID 1,000 MG/10 ML AMPUL 1000 MG IV PUSH (15:56)
[2023-02-10] MEDS: LACTATED RINGERS 1,000 ML 30 ML IV CONT ×3 (16:09→17:36)
--- NOTE | 2023-02-10 16:37 | P.OP_ITS ---
Procedure Note - Detailed Date of Procedure 02/10/23 Pre-op Diagnosis R Hip Fracture Post-op Diagnosis Same Procedure Performed RIGHT HIP HEMIARTHROPLASTY WITH BIPOLAR PROSTHESIS Surgeon Jorge Raza MD Anesthesia General Description of Procedure THE PATIENT WAS TAKEN TO THE OPERATING ROOM IN STABLE CONDITION. HE WAS PLACED IN THE LATERAL DECUBITUS AND THE RIGHT LOWER EXTREMITY WAS PREPPED AND DRAPED IN THE STERILE FASHION. INCISION WAS MADE IN THE POSTERIOR LATERAL SIDE OF THE HIP, DOWN TO THE FASCIA LAYER. THE FASCIA WAS INCISED. THE HIP WAS EXPOSED. THE SHORT EXTERNAL ROTATORS WERE EXPOSED AND THERE WAS A LARGE HEMATOMA. THE CAPSULE WAS INCISED EXPOSING THE FRACTURE. THE FEMORAL HEAD WAS REMOVED. IT MEASURED 47 MM. AN OSTEOTOMY WAS MADE TO THE FEMORAL NECK ABOUT 1 CM PROXIMAL TO THE LESSER TROCHANTER. NEXT THE FEMUR WAS PREPARED WITH INITIAL CANAL FINDER THEN SEQUENTIAL REAMING UNTIL A #10 REAMER AND BROACHING TILL A #10 BROACH FIT WELL IN 15 OF ANTE VERSION. A +0 HIGH OFFSET NECK BIPOLAR TRIAL IN A 47 MM SHELL WAS PLACED. THE SHUCK TEST WAS EXCELLENT AND THE STABILITY IN FLEXION AND ROTATION WAS EXCELLENT. LEG LENGTHS WERE GROSSLY EQUAL. TRIALS WERE REMOVED. AN ECHO FRACTURE STEM #10 PRESS FIT STEM WAS PLACED WITH A HIGH OFFSET IN 15 DEG OF ANTEVERSION. A +0 BIPOLAR HEAD NECK TRIAL WAS PLACED AGAIN. THE HIP WAS TRIALED AND THE STABILITY WAS EXCELLENT WERE THE LEG LENGTHS AND THE SHUCK TEST. NEXT A BIPOLAR HEAD NECK +0 IMPLANT WITH A 47 MM COBALT CHROME SHELL WAS P LACED AND TRIALED ONCE AGAIN SHOWING EXCELLENT STABILITY AND GROSSLY EQUAL LEG LENGTHS. THE WOUND WAS IRRIGATED WITH STERILE BETADINE AND WATER FOR 3 MIN. THEN WASHED AGAIN. THE CAPSULE AND THE EXTERNAL ROTATORS WERE APPROXIMATED WITH NUMBER 1 VICRYL. THE FASCIA WITH No 2 QUIL AND THE SUB CUTANEOUS LAYER WITH 2-0 ABSORBABLE SUTURE WITH A RUNNING 3-0 SUBCUTICULAR LAYER WITH STRATAFIX WELL. DERMABOND WAS PLACED AND STERILE DRESSING WAS APPLIED. PATIENT WAS PLACED BACK ON TO THE SUPINE POSITION AND WAS EXTUBATED. Estimated Blood Loss -300.0 Urine Output 100 Drains No Pathology None sent Complications No immediate complications Condition Stable Disposition PACU
--- NOTE | 2023-02-10 17:19 | SUR.PHASEI ---
1700 DR. MACHADO CALLED FOR SBP IN 80'S SINCE ARRIVAL TO PACU. CHANGED BP CUFF TO RIGHT LOWER LEG; NORMAL BP'S NOW. DR. MACHADO PLACED NEW IV IN LEFT WRIST BECAUSE BOTH IV'S IN RIGHT FA ARE NOT WORKING. NOW PATIENT COMBATIVE, YELLING AND GRABBING, HITTING.
[2023-02-10] MEDS: MIDAZOLAM HCL (*CRX) 10 MG/2 ML VIAL IV PUSH (17:36)
--- NOTE | 2023-02-10 17:37 | SUR.PHASEI ---
PATIENT NOW QUIET, RESTING QUIETLY.
[2023-02-10] MEDS: SODIUM CHLORIDE 0.9% IV 1,000 ML 125 ML IV CONT (18:27)
[2023-02-10] MEDS: FAMOTIDINE 20 MG TABLET PO (19:59)
[2023-02-10] MEDS: HYDROcodone/acetaminophen (*CRX) 5-325 MG TABLET 1 TAB PO (20:01)
[2023-02-10] MEDS: ceFAZolin 1 GM/NS 50 ML 1 GM/50 ML BAG IVPB (21:07)
[2023-02-11] MEDS: SODIUM CHLORIDE 0.9% IV 1,000 ML 125 ML IV CONT (02:45)
[2023-02-11] MEDS: MORPHINE SULFATE (*CRX) 2 MG/ML INJ IV PUSH (03:07)
[2023-02-11 03:52] VITALS: BP 139/90; PULSE 107; RESP 17; TEMP 36.9; O2SAT 91
[2023-02-11] MEDS: ceFAZolin 1 GM/NS 50 ML 1 GM/50 ML BAG IVPB ×2 (05:17→13:00)
[2023-02-11 06:19] LABS: Anion Gap 9 mmol/L (8-16); Blood Urea Nitrogen 39 mg/dL (7-17); Calcium 7.6 mg/dL (8.4-10.2); Carbon Dioxide 19 mmol/L (22-30); Chloride 108 mmol/L (98-107); Estimated CRCL calculation 40 ml/min; Estimated Glomerular Filt Rate > 60; Glucose 133 mg/dL (65-110); Potassium 4.2 mmol/L (3.4-5.0); Sodium 136 mmol/L (137-145)
--- NOTE | 2023-02-11 09:15 | P.PNAN_ITS ---
Anes - Prog Note Post-Op Date/Time: 02/11/23 09:15 Cardiovascular status: normal Respiratory status: normal Airway patency: baseline Mental status: baseline Post-Op hydration status: normal Vital Signs: Last Vital Signs Temp 36.9 C 02/11/23 03:52 Pulse 107 H 02/11/23 03:52 Resp 17 02/11/23 03:52 BP 139/90 02/11/23 03:52 Pulse Ox 91 02/11/23 03:52 O2 Del Method Room Air 02/10/23 17:20 O2 Flow Rate 6 02/10/23 16:35 Pain Score (VAS): 0 I/O: Intake & Output 02/10/23 02/11/23 02/11/23 23:59 07:59 15:59 Intake Total 1050 1050 Output Total 100 650 Balance 950 400 Laboratory Tests 02/11/23 05:55 02/10/23 02/11/23 08:41 05:55 WBC 8.7 Pending RBC 3.80 L Pending Hgb 11.2 L Pending Hct 38.0 Pending MCV 100.0 D Pending MCH 29.5 Pending MCHC 29.5 L Pending RDW 13.5 Pending Plt Count 74 L Pending MPV 9.8 Pending Immature Gran % (Auto) Pending Neut % (Auto) Pending Lymph % (Auto) Pending [place] % (Auto) Pending Eos % (Auto) Pending Baso % (Auto) Pending Lymph # (Auto) Pending [place] # (Auto) Pending Eos # (Auto) Pending Baso # (Auto) Pending Abs Immat Gran (auto) Pending Absolute Neuts (auto) Pending Absolute Nucleated RBC Pending Nucleated RBC % Pending % Immature Plt Fraction 2.7 Sodium 136 L Potassium 4.2 Chloride 108 H Carbon Dioxide 19 L Anion Gap 9 BUN 39 H Creatinine 0.70 Estim Creat Clear Calc 40 Estimated GFR > 60 Glucose 133 H Calcium 7.6 L Post-procedural complaints: none Patient Feedback: Patient satisfied with anesthetic care.
[2023-02-11] MEDS: ASPIRIN 81 MG CHEWABLE TABLET PO (09:26)
--- NOTE | 2023-02-11 09:26 | PM.PNORT ---
Progress Note: A&P Assessment and Plan (1) S/P hip hemiarthroplasty: Code(s): Z96.649 - Presence of unspecified artificial hip joint Status: Acute Assessment and Plan: POD #1 : Right Hip Bipolar s/p fracture Continue PT/OT. WBAT. Walker. HIGH FALL RISK. Continue pain control. Ice hip. Protect skin. DVT prophylaxis with Heparin- currently on hold due to low platelet count. Dr. Raza aware. SCDs. Incentive Spirometry Use reviewed. Monitor Dressing. Change prior to discharge. Bowel Regimen. Dispo: SNF vs [facility] pending progress with PT/OT (2) Hip fracture, right: Qualifiers: Encounter type: initial encounter Fracture type: closed Qualified Code(s): S72.001A - Fracture of unspecified part of neck of right femur, initial encounter for closed fracture Code(s): S72.001A - Fracture of unspecified part of neck of right femur, initial encounter for closed fracture Status: Acute Time Spent With Patient Time: Discussed postoperative radiographs, labs, current assessment, low platelet count, DVT prevention being held due to labs and discharge plans with attending MD and patient's surgeon, Dr. Raza. Agrees with current plan as indicated above. No further recommendations at this time. Subjective Subjective Date/Time Seen: 02/11/23 09:26 Post Op day: 1 (Right ROBYN ) Interval history: POD #1: Right ROBYN Patient uncomfortable today. Does not want to get out of bed/work with PT. Encouraged patient to get out of bed to chair. Answering questions appropriately. Reports mild pain. No other concerns. Review of Systems Review of Systems: All systems reviewed & are unremarkable except as noted in HPI and below Constitutional: Constitutional: Denies chills, Denies fever(s), Denies headache(s), Denies lethargy and Reports weakness ENT: Denies headache(s) Cardiovascular: Cardiovascular: Denies chest pain, Denies diaphoresis, Denies lightheadedness, Denies palpitations, Denies dyspnea and Denies dyspnea on exertion Respiratory: Respiratory: Denies cough, Denies dyspnea and Denies dyspnea on exertion Gastrointestinal: Gastrointestinal: Denies constipation, Denies diarrhea, Denies nausea and Denies vomiting Genitourinary: Genitourinary: Reports urinary frequency, Denies dysuria and Denies urinary hesitancy Musculoskeletal: Musculoskeletal: Reports joint swelling (Right Hip ) and Reports limited range of motion (Right Hip due to recent surgery ) Neurologic: Denies headache(s) and Reports weakness Endocrine: Endocrine: Denies palpitations Exam Const: General: comfortable and no acute distress Resp: Effort & Inspection: normal respiratory effort Cardio: Rate: regular rate Rhythm: regular rhythm GI: Inspection: non-distended Skin: General skin exam: normal color Other: Incision right hip c/d/i. Surrounding tissue without redness/warmth. Mild swelling consistent with recent surgery. No drainage. Neuro: Cognition (Neuro): normal cognition Speech: normal speech Extrem: Right lower extremity: normal to inspection, normal capillary refill, hip/thigh Details: tenderness Location: of the hip (Thigh soft ) Location: laterally and anteriorly, swelling Location: at the hip, abnormal ROM (limited consistent with recent surgery ) Details: pain with active ROM during and pain with passive ROM during and other (Incision c/d/i. ); no deformity and no unusual warmth, knee Details: normal to inspection; no tenderness and no swelling, lower leg (Negative Manju's Sign ) Details: normal to inspection and no edema; no tenderness, ankle (+ankle dorsiflexion/plantarflexion) Details: normal to inspection and no edema; no tenderness, no swelling and no ecchymosis and foot Details: normal capillary refill, toes with normal ROM, vascular exam Details: dorsalis pedis pulse present and motor-sensory exam Details: light-touch normal; no tenderness Objective Data Vital Signs Vital Signs: Vital Signs - 24 hr
[2023-02-11] MEDS: HYDROcodone/acetaminophen (*CRX) 5-325 MG TABLET 1 TAB PO ×4 (09:27→20:29)
[2023-02-11] MEDS: SENNA/DOCUSATE SODIUM TABLET 2 TAB PO ×2 (09:27→17:25)
[2023-02-11] MEDS: FAMOTIDINE 20 MG TABLET PO ×2 (09:27→20:29)
[2023-02-11] MEDS: polyethylene glycoL 3350 17 GM POWD.PACK PO (09:27)
[2023-02-11 09:33] VITALS: BMI 18.3
--- NOTE | 2023-02-11 09:44 | P.CDI_ITS ---
CDI Query Clarification Request BMI 18.3 Nutritional Diagnostic Statement Moderate Protein related to increased protein needs in the setting of chronic disease or condition as evidenced by consuming < 75% of estimated protein needs > 7days and 16% weight loss reported in the past 8 months. Please refer to the Comprehensive Nutrition assessment for further information. Please clarify severity of protein calorie Malnutrition * Mild * Moderate * Severe * Other / Unspecified <Marta Kim RN - Last Filed: 02/11/23 09:49> Clarified Diagnosis Clarified Diagnosis: moderate protein calorie malnutrition <Tash Li PA-C - Last Filed: 02/11/23 15:41>
[2023-02-11 10:13] LABS: Basophils Percent Auto 0.2 % (0.2-1.2); Hematocrit 32.2 % (37.0-47.0); Hemoglobin 10.1 g/dL (12.0-15.0); Immature Granulocyte Absolute 0.06 K/mm3 (0.00-0.031); Immature Granulocyte Percent A 0.6 % (0-0.5); Lymphocytes Absolute Auto 0.52 K/mm3 (0.9-3.2); Lymphocytes Percent Auto 5.5 % (18.3-44.2); Mean Corpuscular HGB Conc 31.4 g/dl (32-36); Mean Corpuscular Hemoglobin 29.8 pg (26-34); Mean Platelet Volume 9.9 fl (7.4-10.4); Monocytes Absolute Auto 0.5 K/mm3 (0.1-0.6); Monocytes Percent Auto 5.4 % (2.6-8.5); Neutrophils Absolute Auto 8.3 K/mm3 (1.3-6.7); Neutrophils Percent Auto 88.3 % (45.5-73.1); Platelet Count Result 102 k/mm3 (150-375); Red Blood Count 3.39 M/mm3 (4.2-5.4); Red Cell Distribution Width 13.4 % (11.5-14.5); White Blood Count 9.4 K/mm3 (4.5-10.0)
[2023-02-11 11:52] VITALS: BP 148/84; PULSE 76; RESP 16; TEMP 37; O2SAT 93
--- NOTE | 2023-02-11 13:57 | PCPTNOTE ---
Attempted to see patient for PT, however patient refused. Patient reported she just wants to be left alone and rest. Educated patient on the importance of therapy and encouraged patient to participate in therapy. Patient continued to refuse and reported she just wants to be left alone.
[2023-02-11 15:41] VITALS: BP 116/78; PULSE 83; RESP 16; TEMP 37.3; O2SAT 92
--- NOTE | 2023-02-11 15:41 | PM.IMPN ---
Progress Note: A&P Assessment and Plan (1) Fall from ground level: Code(s): W18.30XA - Fall on same level, unspecified, initial encounter Status: Inactive Assessment and Plan: Patient suffered a mechanical fall, tripped in her kitchen Suffered hip fracture as described below fall precautions appreciate PT/OT eval (2) Hip fracture: Qualifiers: Encounter type: initial encounter Fracture type: closed Laterality: right Qualified Code(s): S72.001A - Fracture of unspecified part of neck of right femur, initial encounter for closed fracture Code(s): S72.009A - Fracture of unspecified part of neck of unspecified femur, initial encounter for closed fracture Status: Acute Assessment and Plan: Hip/pelvis x-ray showed mildly angulated subcapital right femoral neck fracture Appreciate orthopedic surgery consultation underwent surgical repair on 02/10/2023. Tolerated the procedure well Continue analgesics as needed appreciate PT/OT eval DVT prophylaxis and wound care deferred to Orthopedic surgery (3) Gastro-esophageal reflux disease without esophagitis: Code(s): K21.9 - Gastro-esophageal reflux disease without esophagitis Status: Chronic Assessment and Plan: No acute issues Continue pantoprazole (4) Chronic kidney disease, stage 3a: Code(s): N18.31 - Chronic kidney disease, stage 3a Status: Chronic Assessment and Plan: Renal function is stable at this time Continue to monitor BMP (5) Hypoxia: Code(s): R09.02 - Hypoxemia Status: Acute Assessment and Plan: Patient with mild desaturation to 87% on room air on 02/10 required up to 2 L supplemental O2 CXR with no acute cardiopulmonary finding Continue incentive spirometry today patient is maintaining adequate O2 sats on room air Monitor O2 sats Subjective Date/time seen: 02/11/23 15:41 Interval history: Date of service: 02/11/23 Bianca Adams is an 87 year old female with a history of hypertension, CKD, AAA, GERD, and several other comorbities who is seen in follow up for right hip fracture. she is a fair historian. she tolerated surgery well yesterday. She was able to get up with therapy today and did well with this. Denies any significant right hip pain. No shortness of breath, cough, chest pain. No abdominal pain. Unable to recall if she has had a bowel movement Review of Systems Review of Systems: All systems reviewed & are unremarkable except as noted in HPI and below Exam Narrative: General: Well-nourished, well-appearing 87-year-old female, sitting up in bed, comfortable Neuro: awake, alert and oriented x3, speech clear, no focal neuro deficits noted, forgetful HEENMT: normocephalic, atraumatic, EOMI, sclerae anicteric, hard of hearing Respiratory: clear to auscultation bilaterally, nonlabored breathing Cardio: regular rate, regular rhythm with S1-S2 Abdomen: nondistended, normoactive bowel sounds, soft, nontender to palpation Extremities: Right hip covered with a dressing that is clean and dry,no edema, erythema, or tenderness to palpation, DP pulses 2+ bilaterally Skin: scattered ecchymosis of bilateral upper extremities, no rashes or lesions, warm and dry Psych: pleasantly confused, judgment and insight fair Objective Data Vital Signs Vital Signs: Vital Signs - 24 hr 02/10/23 16:09 02/10/23 16:20 02/10/23 16:35 Temperature 97.5 F L Pulse Rate 80 79 72 Respiratory Rate 12 15 16 Blood Pressure 89/30 L 94/22 L 87/55 L Pulse Oximetry 95 100 95 Oxygen Delivery Simple Face Mask Simple Face Mask Simple Face Mask Oxygen Flow Rate 6 6 6 02/10/23 16:50 02/10/23 17:05 02/10/23 17:20 Temperature Pulse Rate 100 97 102 H Respiratory Rate 16 16 27 H Blood Pressure 129/96 H 104/83 100/78 Pulse Oximetry 94 94 94 Oxygen Delivery Room Air Room Air Room Air Oxygen Flow Rate 02/10/23 17:35
[2023-02-11 19:52] VITALS: BP 104/52; PULSE 90; RESP 17; TEMP 36.8; O2SAT 92
[2023-02-11 21:05] VITALS: BP 104/52; PULSE 90; RESP 17; TEMP 36.8; O2SAT 92
[2023-02-12] MEDS: HYDROcodone/acetaminophen (*CRX) 5-325 MG TABLET 1 TAB PO ×5 (01:45→17:35)
[2023-02-12 05:12] VITALS: BP 143/76; PULSE 77; RESP 17; TEMP 36.7; O2SAT 92
[2023-02-12 05:25] LABS: Hematocrit 30.6 % (37.0-47.0); Hemoglobin 9.7 g/dL (12.0-15.0); Mean Corpuscular HGB Conc 31.7 g/dl (32-36); Mean Corpuscular Hemoglobin 30.3 pg (26-34); Mean Corpuscular Volume 95.6 fl (80-100); Platelet Count Result 112 k/mm3 (150-375); Red Cell Distribution Width 13.8 % (11.5-14.5); White Blood Count 10.1 K/mm3 (4.5-10.0)
[2023-02-12 05:34] LABS: Anion Gap 2 mmol/L (8-16); Blood Urea Nitrogen 46 mg/dL (7-17); Calcium 8.2 mg/dL (8.4-10.2); Carbon Dioxide 29 mmol/L (22-30); Chloride 106 mmol/L (98-107); Estimated CRCL calculation 32 ml/min; Estimated Glomerular Filt Rate 59; Glucose 110 mg/dL (65-110); Potassium 4.2 mmol/L (3.4-5.0); Sodium 137 mmol/L (137-145)
--- NOTE | 2023-02-12 09:01 | PM.PNORT ---
Progress Note: A&P Assessment and Plan (1) S/P hip hemiarthroplasty: Code(s): Z96.649 - Presence of unspecified artificial hip joint Status: Acute Assessment and Plan: POD #2: Right Hip Bipolar s/p fracture Continue PT/OT. WBAT. Walker. HIGH FALL RISK. Continue pain control. Ice hip. Protect skin. DVT prophylaxis with Heparin- currently on hold due to low platelet count, improving. Resume when cleared by medicine. SCDs. Incentive Spirometry Use reviewed. Monitor Dressing. Change prior to discharge. Bowel Regimen. Dispo: SNF vs [facility] pending progress with PT/OT (2) Hip fracture, right: Qualifiers: Encounter type: initial encounter Fracture type: closed Qualified Code(s): S72.001A - Fracture of unspecified part of neck of right femur, initial encounter for closed fracture Code(s): S72.001A - Fracture of unspecified part of neck of right femur, initial encounter for closed fracture Status: Acute Time Spent With Patient Time: Discussed postoperative radiographs, labs, current assessment, low platelet count, DVT prevention being held due to labs and discharge plans with attending MD and patient's surgeon, Dr. Raza. Resume Heparin when approved by Medicine team. Agrees with current plan as indicated above. No further recommendations at this time. Time with patient: less than 15 minutes Subjective Subjective Date/Time Seen: 02/12/23 09:01 Post Op day: 2 (Right Hip Bipolar ) Interval history: POD #2: Right Hip Bipolar Patient resting comfortable. No new concerns today. Review of Systems Review of Systems: All systems reviewed & are unremarkable except as noted in HPI and below Constitutional: Constitutional: Denies chills, Denies fever(s), Denies headache(s), Denies lethargy and Reports weakness ENT: Denies headache(s) Cardiovascular: Cardiovascular: Denies chest pain, Denies diaphoresis, Denies lightheadedness, Denies palpitations, Denies dyspnea and Denies dyspnea on exertion Respiratory: Respiratory: Denies cough, Denies dyspnea and Denies dyspnea on exertion Gastrointestinal: Gastrointestinal: Denies constipation, Denies diarrhea, Denies nausea and Denies vomiting Genitourinary: Genitourinary: Reports urinary frequency, Denies dysuria and Denies urinary hesitancy Musculoskeletal: Musculoskeletal: Reports joint swelling (Right Hip ) and Reports limited range of motion (Right Hip due to recent surgery ) Neurologic: Denies headache(s) and Reports weakness Endocrine: Endocrine: Denies palpitations Exam Const: General: comfortable and no acute distress Resp: Effort & Inspection: normal respiratory effort Cardio: Rate: regular rate Rhythm: regular rhythm GI: Inspection: non-distended Skin: General skin exam: normal color Other: Incision right hip c/d/i. Surrounding tissue without redness/warmth. Mild swelling consistent with recent surgery. No drainage. Neuro: Cognition (Neuro): normal cognition Speech: normal speech Extrem: Right lower extremity: normal to inspection, normal capillary refill, hip/thigh Details: tenderness Location: of the hip (Thigh soft ) Location: laterally and anteriorly, swelling Location: at the hip, abnormal ROM (limited consistent with recent surgery ) Details: pain with active ROM during and pain with passive ROM during and other (Incision c/d/i. ); no deformity and no unusual warmth, knee Details: normal to inspection; no tenderness and no swelling, lower leg (Negative Manju's Sign ) Details: normal to inspection and no edema; no tenderness, ankle (+ankle dorsiflexion/plantarflexion) Details: normal to inspection and no edema; no tenderness, no swelling and no ecchymosis and foot Details: normal capillary refill, toes with normal ROM, vascular exam Details: dorsalis pedis pulse present and motor-sensory exam Details: light-touch normal; no tenderness Objective Data Vital Signs Vital Signs: Vital Signs - 24 hr 02/11/23
[2023-02-12] MEDS: FAMOTIDINE 20 MG TABLET PO (09:06)
[2023-02-12] MEDS: SENNA/DOCUSATE SODIUM TABLET 2 TAB PO ×2 (09:06→17:35)
[2023-02-12] MEDS: polyethylene glycoL 3350 17 GM POWD.PACK PO (09:06)
[2023-02-12] MEDS: HEPARIN SODIUM 5,000 UNITS/ML VIAL 5000 UNITS SUB-Q (09:06)
[2023-02-12] MEDS: ASPIRIN 81 MG CHEWABLE TABLET PO (09:06)
--- NOTE | 2023-02-12 11:15 | PM.DS ---
DS: Admitting Diagnosis Discharge Date 02/12/23 1115 Admitting Diagnosis Acute hip fracture, fall DS: Discharge Diagnosis Discharge Diagnosis (1) Fall from ground level: Code(s): W18.30XA - Fall on same level, unspecified, initial encounter Status: Inactive Assessment and Plan: Patient suffered a mechanical fall, tripped in her kitchen Suffered hip fracture as described below fall precautions appreciate PT/OT eval (2) Hip fracture: Qualifiers: Encounter type: initial encounter Fracture type: closed Laterality: right Qualified Code(s): S72.001A - Fracture of unspecified part of neck of right femur, initial encounter for closed fracture Code(s): S72.009A - Fracture of unspecified part of neck of unspecified femur, initial encounter for closed fracture Status: Acute Assessment and Plan: Hip/pelvis x-ray showed mildly angulated subcapital right femoral neck fracture Appreciate orthopedic surgery consultation underwent surgical repair on 02/10/2023. Tolerated the procedure well Continue analgesics as needed appreciate PT/OT eval DVT prophylaxis and wound care deferred to Orthopedic surgery (3) Gastro-esophageal reflux disease without esophagitis: Code(s): K21.9 - Gastro-esophageal reflux disease without esophagitis Status: Chronic Assessment and Plan: No acute issues Continue pantoprazole (4) Chronic kidney disease, stage 3a: Code(s): N18.31 - Chronic kidney disease, stage 3a Status: Chronic Assessment and Plan: Renal function is stable at this time Continue to monitor BMP (5) Hypoxia: Code(s): R09.02 - Hypoxemia Status: Acute Assessment and Plan: Patient with mild desaturation to 87% on room air on 02/10 required up to 2 L supplemental O2 CXR with no acute cardiopulmonary finding Continue incentive spirometry today patient is maintaining adequate O2 sats on room air Monitor O2 sats DS: Summary Hospital Course Hospital Course: patient is a 7-year-old female with a past medical history of AAA, chronic kidney disease, hypertension who presented to the ED after a fall. Upon arrival it was noted the patient did have a right femoral neck fracture. Orthopedics was consulted and patient was taken to the OR for repair. Currently the patient is working with PT and OT and is able to move around with a walker. Patient is weight-bearing status as tolerated. Patient does have some pain today however she does have chronic pain as well. She also was complaining of a belly ache which is most likely related to constipation. Currently patient denies any current chest pain, shortness a breath, nausea, vomiting, diarrhea or constipation. She is stable for discharge per labs and vital signs. Patient will be going to [facility] for further rehab opportunities and strengthening. Status at Discharge Functional status at discharge: uses cane/walker Overall status at discharge: patient is progressing back to baseline Time Spent with Patient Time attestation: Total time spent providing and/or coordinating discharge services: 46 minutes Time spent: Greater than 30 minutes Specific discharge activities: Diagnostic testing, chart review, developing a treatment plan, education, care coordination documentation, physical exam, result review Exam Narrative: General: Well-nourished, well-appearing 87-year-old female, sitting up in chair, comfortable Neuro: awake, alert and oriented x3, speech clear, no focal neuro deficits noted, forgetful HEENMT: normocephalic, atraumatic, EOMI, sclerae anicteric, hard of hearing Respiratory: clear to auscultation bilaterally, nonlabored breathing Cardio: regular rate, regular rhythm with S1-S2 Abdomen: nondistended, normoactive bowel sounds, soft, nontender to palpation Extremities: Right hip covered with a dressing that is clean and dry,no edema, erythema, or tenderne
[2023-02-12] MEDS: BISACODYL 10 MG SUPPOSITORY RECTAL (13:10)
[2023-02-12 14:31] VITALS: BP 144/98; PULSE 101; RESP 18; TEMP 37.1; O2SAT 94
[2023-02-12 15:24] LABS: EDCOVIDSCREEN Negative (Negative)
== END 2023-02-12 19:36 | DRG 522 ==
LOC: ANHED 20:39 → ANH2MED 22:08
PROVIDERS: Orthopaedic Surgery; Physician Assistant; Admitting Provider Internal Medicine; Emergency Provider Emergency Medicine; PCP Family Medicine; Visit Provider Nurse Practitioner
PROC: 0SRR0JA Replacement of Right Hip Joint, Femoral Surface with Synthetic Substitute, Uncemented, Open Approach (ICD-10-PCS; CPT 27125; principal; 2023-02-10 13:30)
DX: S72.011A Unspecified intracapsular fracture of right femur, initial encounter for closed fracture (principal); F32.1 Major depressive disorder, single episode, moderate; Z68.1 Body mass index [BMI] 19.9 or less, adult; M47.16 Other spondylosis with myelopathy, lumbar region; E44.0 Moderate protein-calorie malnutrition; W01.0XXA Fall on same level from slipping, tripping and stumbling without subsequent striking against object, initial encounter; Z20.822 Contact with and (suspected) exposure to COVID-19; Z79.82 Long term (current) use of aspirin; I25.10 Atherosclerotic heart disease of native coronary artery without angina pectoris; R09.02 Hypoxemia; I12.9 Hypertensive chronic kidney disease with stage 1 through stage 4 chronic kidney disease, or unspecified chronic kidney disease; N18.31 Chronic kidney disease, stage 3a; K21.9 Gastro-esophageal reflux disease without esophagitis; M19.90 Unspecified osteoarthritis, unspecified site; I70.0 Atherosclerosis of aorta; I71.40 Abdominal aortic aneurysm, without rupture, unspecified; F41.9 Anxiety disorder, unspecified; M81.0 Age-related osteoporosis without current pathological fracture; Z85.828 Personal history of other malignant neoplasm of skin; Z98.42 Cataract extraction status, left eye; Z98.41 Cataract extraction status, right eye; Z90.710 Acquired absence of both cervix and uterus; Z95.5 Presence of coronary angioplasty implant and graft; Z87.891 Personal history of nicotine dependence
CPT/HCPCS: 36415; 70450; 71045; 72125; 72128; 72131; 73502; 80048; 85025; 85027; 85055; 85610; 85730; 87426; 96374; 97110; 97161; 97165; 97530; 97535; 99285; A9270; C1713; C1776; C9803; J0171; J0690; J1100; J1170; J1644; J1885; J2250; J2270; J2370; J2405; J2704; J2795; J3010; J7030; J7120

== ENCOUNTER 2023-02-17 10:27 | Emergency (ER) | payer MEDICARE, SELFPAY ==
[2023-02-17] VITALS (31 sets, daily range): BP systolic 95–150; BP diastolic 61–97; PULSE 64–90; RESP 12–22; TEMP 36.6; O2SAT 86–100
--- NOTE | ~2023-02-17 | US_ITS ---
EXAMINATION:US venous doppler LE RT INDICATION:Leg swelling, TECHNIQUE: Multiple grayscale, color flow and Doppler images of the right lower extremity deep venous systems were obtained and reviewed. COMPARISON:09/16/2020 FINDINGS: The common femoral, superficial femoral and popliteal veins demonstrate normal respiratory variation, augmentation and compressibility. Color flow is also seen within the posterior tibial, pe roneal, greater saphenous and profunda veins. IMPRESSION: 1: No lower extremity deep venous thrombosis. Reviewed, dictated and finalized at location B.
--- NOTE | 2023-02-17 10:41 | PC.NURSE ---
Per EMS pt was able to stand and transfer with the right hip fracture.
[2023-02-17 13:31] LABS: Anion Gap 2 mmol/L (8-16); Blood Urea Nitrogen 28 mg/dL (7-17); Calcium 8.1 mg/dL (8.4-10.2); Carbon Dioxide 30 mmol/L (22-30); Chloride 105 mmol/L (98-107); Estimated CRCL calculation 51 ml/min; Estimated Glomerular Filt Rate > 60; Glucose 100 mg/dL (65-110); Potassium 3.8 mmol/L (3.4-5.0); Sodium 137 mmol/L (137-145)
[2023-02-17] MEDS: HYDROcodone/acetaminophen (*CRX) 5-325 MG TABLET 1 TAB PO (13:54)
[2023-02-17 14:12] LABS: Basophils Percent Auto 0.6 % (0.2-1.2); Eosinophils Absolute Auto 0.2 K/mm3 (0-0.3); Eosinophils Percent Auto 3.9 % (0-4.4); Hematocrit 27.4 % (37.0-47.0); Hemoglobin 8.6 g/dL (12.0-15.0); Immature Granulocyte Absolute 0.13 K/mm3 (0.00-0.031); Immature Granulocyte Percent A 2.1 % (0-0.5); Lymphocytes Absolute Auto 0.85 K/mm3 (0.9-3.2); Lymphocytes Percent Auto 13.8 % (18.3-44.2); Mean Corpuscular HGB Conc 31.4 g/dl (32-36); Mean Corpuscular Hemoglobin 30.5 pg (26-34); Mean Corpuscular Volume 97.2 fl (80-100); Mean Platelet Volume 9.1 fl (7.4-10.4); Monocytes Absolute Auto 0.8 K/mm3 (0.1-0.6); Monocytes Percent Auto 12.5 % (2.6-8.5); Neutrophils Absolute Auto 4.2 K/mm3 (1.3-6.7); Neutrophils Percent Auto 67.1 % (45.5-73.1); Platelet Count Result 241 k/mm3 (150-375); Red Blood Count 2.82 M/mm3 (4.2-5.4); Red Cell Distribution Width 14.3 % (11.5-14.5); White Blood Count 6.2 K/mm3 (4.5-10.0)
--- NOTE | 2023-02-17 14:24 | ED.EXTPRO ---
HPI - Extremity Problem General Chief complaint: Extremity Problem,Nontraumatic Stated complaint: RLE - swelling Time Seen by Provider: 02/17/23 11:55 History of Present Illness HPI Narrative: Pt presents with pain and swelling to left leg. Pt denies recent injury though has had recent hip fx and repair. Pt denies other issues or complaints. Related Data Home Medications Medication Instructions Recorded Confirmed atorvastatin 20 mg tablet 20 mg PO DAILY 10/15/20 02/17/23 carvedilol 25 mg tablet 25 mg PO BID 10/15/20 02/17/23 lisinopril 2.5 mg tablet 5 mg PO DAILY 10/15/20 02/17/23 pantoprazole 40 mg tablet,delayed 40 mg PO DAILY 10/15/20 02/17/23 release aspirin 81 mg chewable tablet 81 mg PO DAILY 03/20/21 02/17/23 nitroglycerin 0.4 mg sublingual 0.4 mg sublingual Q5M PRN Chest 03/20/21 02/17/23 tablet (Nitrostat) Pain [id number] 2 cap PO TIDWM 04/01/22 02/17/23 24,000-76,000-120,000 unit capsule,delayed rel (Creon) Allergies Allergy/AdvReac Type Severity Reaction Status Date / Time meperidine Allergy Mild (DEMEROL) Verified 02/17/23 10:50 LEGS JERKING , FEELING FUNNY azathioprine Allergy Unknown Verified 02/17/23 10:50 Review of Systems Review of Systems: All systems reviewed & are unremarkable except as noted in HPI and below PMFSH Past Medical History Medical History (Updated 02/17/23 @ 15:11 by Cleo Prieto III, DO) Abdominal aortic aneurysm, without rupture, unspecified Anxiety Arthritis Atherosclerosis of aorta Atherosclerotic heart disease of [place] coronary artery without angina pectoris Chronic kidney disease, stage 3a Chronic pancreatitis DDD (degenerative disc disease) Gastro-esophageal reflux disease without esophagitis GERD (gastroesophageal reflux disease) History of chronic pancreatitis Due to autoimmune disease [place] (hard of hearing) Hydronephrosis Hydronephrosis with ureteral stricture, 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 with stage 1 through stage 4 chronic kidney disease, or unspecified chronic kidney disease Major depressive disorder, single episode, moderate Mild protein-calorie malnutrition Occlusion and stenosis of bilateral carotid arteries Osteoporosis Other spondylosis with myelopathy, lumbar region Presence of functional implant, unspecified Presence of pancreatic duct stent Pure hypercholesterolemia, unspecified Retroperitoneal fibrosis Skin cancer Status post resection UTI (urinary tract infection) Surgical History Surgical History (Updated 02/11/23 @ 10:14 by JOSE Sheth) H/O bilateral cataract extraction H/O cystoscopy H/O: hysterectomy History of back surgery History of biliary duct stent placement Two thousand five performed at [facility] History of cardiac catheterization History of coronary artery stent placement 3 cardiac stents History of urethral stent Presence of urogenital implants S/P hip hemiarthroplasty Family History Family History Father Family history of tuberculosis Mother Acute myocardial infarction Grandparent Cerebrovascular accident Sibling Carcinoma of colon Family history of Alzheimer's disease DVT prophylaxis Breast cancer Sister who is still living Son Diabetes mellitus Social History Social History Social History: 04/01/22 Pt wishes to be a full code The patient lives in her own home. Her son Tay resides with her. She is and has 4 children (2 boys and 2 girls). 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 She used to smoke a pack of cigarettes per day for 50 years but quit smoking in 2008. She used to like to drink alcohol on occasion and in moderation but had to stop after she got pancreatitis. She is independent in activities of daily living. 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
[2023-02-17 14:31] LABS: Partial Thromboplastin Time 24.9 SECONDS (22.3-36.8); Prothrombin Time 13.2 Seconds (11.1-14.7)
--- NOTE | 2023-02-17 15:27 | PC.NURSE ---
Pt has been clear for DC. RN calls [facility] and gives RN to RN report to Selina who is waiting arrival of pt.
== END 2023-02-17 19:02 ==
PROVIDERS: Emergency Provider Emergency Medicine; PCP Family Medicine
DX: M79.604 Pain in right leg (principal); I25.10 Atherosclerotic heart disease of native coronary artery without angina pectoris; I12.9 Hypertensive chronic kidney disease with stage 1 through stage 4 chronic kidney disease, or unspecified chronic kidney disease; N18.31 Chronic kidney disease, stage 3a; F17.210 Nicotine dependence, cigarettes, uncomplicated; Z79.82 Long term (current) use of aspirin; Z98.890 Other specified postprocedural states
CPT/HCPCS: 36415; 80048; 85025; 85610; 85730; 93971; 99284; A9270

== ENCOUNTER 2023-02-23 07:37 | Emergency (ER) | payer MEDICARE, SELFPAY ==
--- NOTE | ~2023-02-23 | XR_ITS ---
EXAMINATION: XR foot RT min 3V DATE: 02/23/2023 08:55 INDICATION: Right foot swelling. TECHNIQUE: 4 views of right foot were obtained. COMPARISON: Right ankle radiographs 04/21/2019 FINDINGS: There is dorsiflexion of all of the metatarsophalangeal joints and flexion of the interphal angeal joints. There is diffuse osteopenia. No fracture. There is mild osteoarthritis of some of the interphalangeal joints. There is soft tissue swelling of the foot. IMPRESSION: 1. Mild polyarticular osteoarthritis. Reviewed, dictated and finalized at location A.
[2023-02-23 07:53] VITALS: BP 152/98; PULSE 92; RESP 16; TEMP 36.7; O2SAT 96
[2023-02-23 08:18] VITALS: BP 156/90; PULSE 82; RESP 16; TEMP 36.4; O2SAT 97
--- NOTE | 2023-02-23 08:57 | PCCCNOTE ---
Late entry: Phone call received [phone] from Kadie Dinh RN, Patient is stating that she does not want to go back to [facility]. Met w/ patient in room 14., Asked about [facility], she states that she receives good care there and feels that she panicked, she looked at her bruising and swelling in her foot and was worried that she would lose her foot., She knows that she will discharge from [facility] on . Explained that if she is okay and after her ER exam she will return to [facility] to receive additional rehab that her insurance has authorized. Patient is agreeable and now is worried that they won't take her back and how will she get there. Called to [facility] spoke w/ [facility], she confirms that they have an authorization and she will discharge on . They will accept her back today after DC to continue her rehab until DC. Patient notified and reassured. foot specialist and bedside Myriam.
--- NOTE | 2023-02-23 09:45 | ED.LOWEXIN ---
HPI - Extremity Injury (Lower) General Chief Complaint: Extremity Injury, Lower Stated Complaint: swollen right foot Time Seen by Provider: 02/23/23 08:05 Source: patient Mode of arrival: EMS Limitations: no limitations History of Present Illness HPI Narrative: 87-year-old with a history of hypertension, CKD s/p hip surgery presently going through rehab in the rehab center here with complaints of right foot bruising and swelling patient states that she got too worried patient states that she got worried and she called 911. She presently denies having pain in the foot no history of any obvious injuries. She was seen few days ago for leg pain in the ER. Onset (ago): minute(s) (30) Severity: mild Relieving factors: nothing Exacerbating factors: nothing Context: other (Unsure) Other symptoms: none Related Data Home Medications Medication Instructions Recorded Confirmed atorvastatin 20 mg tablet 20 mg PO DAILY 10/15/20 02/17/23 carvedilol 25 mg tablet 25 mg PO BID 10/15/20 02/17/23 lisinopril 2.5 mg tablet 5 mg PO DAILY 10/15/20 02/17/23 pantoprazole 40 mg tablet,delayed 40 mg PO DAILY 10/15/20 02/17/23 release aspirin 81 mg chewable tablet 81 mg PO DAILY 03/20/21 02/17/23 nitroglycerin 0.4 mg sublingual 0.4 mg sublingual Q5M PRN Chest 03/20/21 02/17/23 tablet (Nitrostat) Pain kzlkrt-pjwmzkll-xcojvxl 2 cap PO TIDWM 04/01/22 02/17/23 24,000-76,000-120,000 unit capsule,delayed rel (Creon) Allergies Allergy/AdvReac Type Severity Reaction Status Date / Time meperidine Allergy Mild (DEMEROL) Verified 02/23/23 08:22 LEGS JERKING , FEELING FUNNY azathioprine Allergy Unknown Verified 02/23/23 08:22 Review of Systems Review of Systems: All systems reviewed & are unremarkable except as noted in HPI and below Constitutional: Constitutional: Reports no additional constitutional complaints Eyes: Eyes: Reports no additional eye complaints ENT: Reports system reviewed and no additional complaints, except as documented Cardiovascular: Cardiovascular: Reports no additional cardiovascular complaints Respiratory: Respiratory: Reports no additional respiratory complaints Gastrointestinal: Gastrointestinal: Reports no additional gastrointestinal complaints Musculoskeletal: Musculoskeletal: Reports as per HPI [facility] Past Medical History Medical History Abdominal aortic aneurysm, without rupture, unspecified Anxiety Arthritis Atherosclerosis of aorta Atherosclerotic heart disease of [place] coronary artery without angina pectoris Chronic kidney disease, stage 3a Chronic pancreatitis DDD (degenerative disc disease) Gastro-esophageal reflux disease without esophagitis GERD (gastroesophageal reflux disease) History of chronic pancreatitis Due to autoimmune disease [place] (hard of hearing) Hydronephrosis Hydronephrosis with ureteral stricture, 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 with stage 1 through stage 4 chronic kidney disease, or unspecified chronic kidney disease Major depressive disorder, single episode, moderate Mild protein-calorie malnutrition Occlusion and stenosis of bilateral carotid arteries Osteoporosis Other spondylosis with myelopathy, lumbar region Presence of functional implant, unspecified Presence of pancreatic duct stent Pure hypercholesterolemia, unspecified Retroperitoneal fibrosis Skin cancer Status post resection UTI (urinary tract infection) Surgical History Surgical History H/O bilateral cataract extraction H/O cystoscopy H/O: hysterectomy History of back surgery History of biliary duct stent placement Two thousand five performed at [facility] History of cardiac catheterization History of coronary artery stent placement 3 cardiac stents History of urethral stent Presence of urogenital implants S/P hip hemiarthroplasty Family History Fami
[2023-02-23 11:08] VITALS: BP 162/99; PULSE 95; RESP 15; O2SAT 97
== END 2023-02-23 11:11 ==
PROVIDERS: Emergency Provider Family Medicine; PCP Family Medicine
DX: S90.31XA Contusion of right foot, initial encounter (principal); I12.9 Hypertensive chronic kidney disease with stage 1 through stage 4 chronic kidney disease, or unspecified chronic kidney disease; N18.31 Chronic kidney disease, stage 3a; I25.10 Atherosclerotic heart disease of native coronary artery without angina pectoris; I70.0 Atherosclerosis of aorta; I65.23 Occlusion and stenosis of bilateral carotid arteries; E78.00 Pure hypercholesterolemia, unspecified; K86.1 Other chronic pancreatitis; K21.9 Gastro-esophageal reflux disease without esophagitis; M81.0 Age-related osteoporosis without current pathological fracture; Z85.828 Personal history of other malignant neoplasm of skin; Z87.440 Personal history of urinary (tract) infections; Z95.5 Presence of coronary angioplasty implant and graft; Z96.649 Presence of unspecified artificial hip joint; Z96.0 Presence of urogenital implants; Z98.42 Cataract extraction status, left eye; Z98.41 Cataract extraction status, right eye; Z90.710 Acquired absence of both cervix and uterus; Z87.891 Personal history of nicotine dependence; Z79.82 Long term (current) use of aspirin; M19.071 Primary osteoarthritis, right ankle and foot; X58.XXXA Exposure to other specified factors, initial encounter
CPT/HCPCS: 73630; 99283

== ENCOUNTER 2023-04-29 02:29 | Day surgery (SDC) | payer MEDICARE, SELFPAY ==
--- NOTE | 2023-04-21 11:34 | PC.NURSE ---
Report to the Outpatient Waiting Room, entrance under the green pavilion located off [facility], at time __0930 on date __04/29/23 . Planned Procedure Time: ___1130 . Time changes happen often and if your time is changed the preop area will call you the afternoon before. - You and your visitor will be asked to self-screen and do not enter if you have any COVID symptoms. - A mask is optional within the hospital at this time. Patients may have clear liquids (water, carbonated beverages, clear teas, apple juice) until 3 hours prior to surgery (0830 AM) with a maximum of 20 ounces. - No food from midnight until time of surgery - Infants may have breast milk until 4 hours before surgery, formula 6 hours prior to surgery. - Children will be allowed to drink immediately following surgery. If applicable, please bring a bottle or sippy cup to assist with drinking. Juice, water, soda, and popsicles are readily available. For infants on formula, please bring formula the day of surgery. Pacifiers are allowed. Take the following medications with a SIP of water the morning of surgery: ____CARVEDILOL, PAIN MED IF NEEDED DO NOT STOP ANY OF YOUR OTHER PRESCRIPTION MEDICATIONS PRIOR TO SURGERY ?EXCEPT THE FOLLOWING Medications to discontinue per physician ___ASPIRIN PER DR. PAULSON'S INSTRUCTIONS Date to take last dose Please no make-up, nail korean, hairspray, perfume, deodorant, or body powder the day of surgery. No jewelry (including any body piercings) or valuables the day of surgery, leave them at home. Please take a shower or bath the night before, or the morning of, surgery with an antibacterial soap. Wear comfortable, loose fitting clothing. Children are encouraged to wear pajamas. - Jewelry must be removed prior to entering the operating room. Rings and piercings that are not removed may be cut off. - The hospital will not accept responsibility for valuables. - Please leave all valuables, including medications, at home the day of surgery. If you are going home after surgery, a licensed hammer driver must drive you home. - NO public transportation without another adult if you receive anesthesia. - We recommend that an adult stay with you for 24 hours following discharge. - We also recommend that you do not drive, make important decision, drink alcoholic beverages, or take any drugs that were not prescribed by your health care provider for at least 24 hours after your discharge time. For Pediatric surgeries, we recommend two adults accompany the child home. Follow any additional instructions given to you from your surgeon. If you or anyone in your household have experienced Covid symptoms in the past week, please notify your surgeon or the nurse liaison at the phone number below for possible testing. Telephone instructions given to __PT'S DAUGHTER JARAD and asked if any additional questions and then verbalized understanding. Patient advised to call surgeon office or pre surgery nurse liaison [phone] if any additional questions.
[2023-04-21 11:36] VITALS: BMI 19.2
--- NOTE | 2023-04-27 06:37 | PM.HPGS ---
History of Present Illness History of Present Illness Consent: Risks, benefits, and alternatives have been discussed and questions answered. Patient agrees to proceed with procedure. Chief complaint: right ureteral cancer Narrative: Bianca Adams is a 87 year old female with a known chronic right ureteral stricture that is managed with a indwelling right ureteral stent.? She presents today for cystoscopy with ureteral stent exchange.? She is aware the risk including, not limited to, hematuria an adverse cardiopulmonary event Review of Systems Cardiovascular: Cardiovascular: Denies chest pain, Denies lightheadedness, Denies palpitations and Denies dyspnea Respiratory: Respiratory: Denies dyspnea Gastrointestinal: Gastrointestinal: Denies diarrhea, Denies nausea and Denies vomiting Genitourinary: Genitourinary: Denies hematuria and Denies dysuria Endocrine: Endocrine: Denies palpitations [facility] Past Medical History Medical History Abdominal aortic aneurysm, without rupture, unspecified Anxiety Arthritis Atherosclerosis of aorta Atherosclerotic heart disease of [place] coronary artery without angina pectoris Chronic kidney disease, stage 3a Chronic pancreatitis DDD (degenerative disc disease) Gastro-esophageal reflux disease without esophagitis GERD (gastroesophageal reflux disease) History of chronic pancreatitis Due to autoimmune disease [place] (hard of hearing) Hydronephrosis Hydronephrosis with ureteral stricture, 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 with stage 1 through stage 4 chronic kidney disease, or unspecified chronic kidney disease Major depressive disorder, single episode, moderate Mild protein-calorie malnutrition Occlusion and stenosis of bilateral carotid arteries Osteoporosis Other spondylosis with myelopathy, lumbar region Presence of functional implant, unspecified Presence of pancreatic duct stent Pure hypercholesterolemia, unspecified Retroperitoneal fibrosis Skin cancer Status post resection UTI (urinary tract infection) Surgical History Surgical History H/O bilateral cataract extraction H/O cystoscopy H/O: hysterectomy History of back surgery History of biliary duct stent placement Two thousand five performed at [facility] History of cardiac catheterization History of coronary artery stent placement 3 cardiac stents History of urethral stent Presence of urogenital implants S/P hip hemiarthroplasty Family History Family History Father Family history of tuberculosis Mother Acute myocardial infarction Grandparent Cerebrovascular accident Sibling Carcinoma of colon Family history of Alzheimer's disease DVT prophylaxis Breast cancer Sister who is still living Son Diabetes mellitus Social History Social History Social History: 04/01/22 Pt wishes to be a full code The patient lives in her own home. Her son Tay resides with her. She is and has 4 children (2 boys and 2 girls). 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 She used to smoke a pack of cigarettes per day for 50 years but quit smoking in 2008. She used to like to drink alcohol on occasion and in moderation but had to stop after she got pancreatitis. She is independent in activities of daily living. 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 Her daughter Jessenia is her durable power of payment poster. Primary care physician is Dr. Kayode Lofton Smoking packs per day: 0.5 Smoking cigarettes per day: 10.0 Years smoked: 40 Smoking pack-years: 20.00 Smoking status: Former smoker Tobacco type: cigarettes Second hand tobacco smoke exposure: No Smoking end date: 10/04/04 Alcohol intake: never Substance use: never Substance use typ
--- NOTE | ~2023-04-29 | XR_ITS ---
EXAMINATION: XR stent kub - surgery DATE: 04/29/2023 11:22 INDICATION: Right internal ureteral stent placement TECHNIQUE: Fluoroscopic images from a right internal ureteral stent placement are submitted for adan denney 15 seconds of fluoroscopy time. 4 fluoroscopic images FINDINGS: There is a right double-J internal ureteral stent projecting in expected position, with proximal [place] loop at the level of the renal pelvis and distal loop in the pelvis within the bladder lumen. IMPRESSION: 1. Right internal ureteral stent placement. Please refer to real-time procedural findings for jamee shelton. Reviewed, dictated and finalized at location A. IMPRESSION: 1. Right internal ureteral stent placement. Please refer to real-time procedu ral findings for details.
--- NOTE | 2023-04-29 06:40 | WPDHPUPDATE1 ---
History and Physical Update Update Date/Time: 04/29/23 06:40 History and Physical has been reviewed, including an updated exam of the patient. There are NO changes in the patient's condition. Risks, benefits, and alternatives have been discussed and questions answered. Patient agrees to proceed with procedure.
[2023-04-29 09:41] VITALS: BP 157/94; PULSE 63; RESP 14; TEMP 36.4; O2SAT 100
[2023-04-29 10:30] LABS: Glucose Point of Care 104 mg/dl (65-105)
--- NOTE | 2023-04-29 10:43 | WPDANESEPPF ---
Anes - Initial Pre Proc Eval Procedure: Operation Date: 04/29/23 11:30 Proposed Procedures p Cystoscopy with Right Ureteral Stent Exchange - Jaquan Ayoub MD Date/Time: 04/29/23 10:43 Surgeon: Jaquan Ayoub MD Pre Op Diagnosis: right ureteral cancer Patient Data Age: 87 Gender: F Height: 1.63 m Weight: 49 kg Last Vital Signs Temp 36.4 C L 04/29/23 09:41 Pulse 63 04/29/23 09:41 Resp 14 04/29/23 09:41 BP 157/94 H 04/29/23 09:41 Pulse Ox 100 04/29/23 09:41 O2 Del Method Room Air 04/29/23 09:41 Allergies Allergy/AdvReac Type Severity Reaction Status Date / Time azathioprine Allergy Mild Unknown Verified 04/29/23 09:56 PER DAUGHTER meperidine Allergy Mild (DEMEROL) Verified 04/29/23 09:56 LEGS JERKING , FEELING FUNNY Home Medications Medication Instructions Recorded Confirmed Type atorvastatin 20 mg tablet 20 mg PO DAILY 10/15/20 04/29/23 History carvedilol 25 mg tablet 25 mg PO BID 10/15/20 04/21/23 History lisinopril 2.5 mg tablet 5 mg PO DAILY 10/15/20 04/29/23 History pantoprazole 40 mg tablet,delayed 40 mg PO DAILY 10/15/20 04/29/23 History release aspirin 81 mg chewable tablet 81 mg PO DAILY 03/20/21 04/29/23 History nitroglycerin 0.4 mg sublingual 0.4 mg sublingual Q5M PRN Chest 03/20/21 04/21/23 History tablet (Nitrostat) Pain [id number]-[id number]-mkmdmas 2 cap PO TIDWM 04/01/22 04/29/23 History 24,000-76,000-120,000 unit capsule,delayed rel (Creon) acetaminophen 325 mg tablet (Mapap 650 mg PO Q6H PRN Mild Pain (1-3) 04/09/22 04/21/23 Rx (acetaminophen)) Or Fever #60 tabs docusate sodium 100 mg capsule 100 mg PO DAILY #30 caps 04/09/22 04/29/23 Rx (Colace) bisacodyl 10 mg rectal suppository 10 mg RECTAL QAM PRN Constipation 02/12/23 04/21/23 Rx after 72 hours #12 ea polyethylene glycol 3350 17 gram 17 g PO QAM #30 ea 02/12/23 04/29/23 Rx oral powder packet (Miralax) sennosides 8.6 mg-docusate sodium 2 tab-cap PO BID #60 tabs 02/12/23 04/29/23 Rx 50 mg tablet (Senokot-S) hydrocodone 10 mg-acetaminophen 1 tablet PO QID PRN Pain (Scale 04/02/23 04/21/23 Rx 325 mg tablet Score 4-6) #120 tabs Laboratory Tests 04/29/23 10:16 POC Capillary Glucose 104 mg/dl (65-105) Patient hx anesthesia problems: none Family hx anesthesia problems: none Results Review: All pre-operative results and documents have been reviewed as part of the pre-operative evaluation. [facility] Past Medical History Medical History Abdominal aortic aneurysm, without rupture, unspecified Anxiety Arthritis Atherosclerosis of aorta Atherosclerotic heart disease of [place] coronary artery without angina pectoris Chronic kidney disease, stage 3a Chronic pancreatitis DDD (degenerative disc disease) Gastro-esophageal reflux disease without esophagitis GERD (gastroesophageal reflux disease) History of chronic pancreatitis Due to autoimmune disease [place] (hard of hearing) Hydronephrosis Hydronephrosis with ureteral stricture, 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 with stage 1 through stage 4 chronic kidney disease, or unspecified chronic kidney disease Major depressive disorder, single episode, moderate Mild protein-calorie malnutrition Occlusion and stenosis of bilateral carotid arteries Osteoporosis Other spondylosis with myelopathy, lumbar region Presence of functional implant, unspecified Presence of pancreatic duct stent Pure hypercholesterolemia, unspecified Retroperitoneal fibrosis Skin cancer Status post resection UTI (urinary tract infection) Surgical History Surgical History H/O bilateral cataract extraction H/O cystoscopy H/O: hysterectomy History of back surgery History of biliary duct stent placement Two thousand five performed at [facility] History of cardiac catheterization Hi
[2023-04-29] MEDS: LACTATED RINGERS 1,000 ML 30 ML IV CONT (10:45)
--- NOTE | 2023-04-29 11:08 | W.PM.PROC2 ---
Procedure Note - Detailed Date of Procedure 04/29/23 Pre-op Diagnosis Right ureteral cancer Post-op Diagnosis Same Procedure Performed Cystoscopy, right ureteral stent exchange Surgeon Jaquan Ayoub MD Anesthesia MAC Description of Procedure Patient is brought to the operative suite where she has prepped and draped in routine sterile fashion while in dorsal lithotomy position.? 2% xylocaine jelly was introduced intraurethrally and systemic sedation is administered per the anesthesia department.? Tip of her indwelling stent is grasped and it was removed with ease.? The bladder is, other than the indwelling stent, endoscopically normal.? There was no intravesical foreign body or neoplasms, other than the stent.? An angiographic catheter was used to obtain a right retrograde pyelogram to ensure proper positioning of the new stent a 4.8 F double-J ureteral stent is positioned with the proximal coil in the right renal pelvis and distal coil in the bladder.? Patient tolerated the procedure well. Drains Yes Packing No Pathology None sent
[2023-04-29 11:26] VITALS: BP 155/90; PULSE 66; RESP 24; O2SAT 97
[2023-04-29 11:40] VITALS: BP 147/82; PULSE 68; RESP 20
[2023-04-29 11:52] VITALS: BP 147/82; PULSE 71; RESP 20; O2SAT 98
[2023-04-29 11:54] VITALS: BP 173/100; PULSE 64; RESP 18
[2023-04-29 12:20] VITALS: BP 150/98; PULSE 70; RESP 18
== END 2023-04-29 12:42 | disposition home or self-care (01) ==
PROVIDERS: PCP Family Medicine; Visit Provider Urology
PROC: (CPT 52310; principal; 2023-04-29 11:30)
DX: C66.1 Malignant neoplasm of right ureter (principal); N13.1 Hydronephrosis with ureteral stricture, not elsewhere classified; I12.9 Hypertensive chronic kidney disease with stage 1 through stage 4 chronic kidney disease, or unspecified chronic kidney disease; N18.31 Chronic kidney disease, stage 3a; I25.10 Atherosclerotic heart disease of native coronary artery without angina pectoris; I71.40 Abdominal aortic aneurysm, without rupture, unspecified; K21.9 Gastro-esophageal reflux disease without esophagitis; F32.1 Major depressive disorder, single episode, moderate; E78.00 Pure hypercholesterolemia, unspecified; M81.0 Age-related osteoporosis without current pathological fracture; E44.1 Mild protein-calorie malnutrition; Z68.1 Body mass index [BMI] 19.9 or less, adult; Z95.5 Presence of coronary angioplasty implant and graft; Z87.891 Personal history of nicotine dependence; Z79.82 Long term (current) use of aspirin; Z79.891 Long term (current) use of opiate analgesic
CPT/HCPCS: 52332; 82948; C1758; C1769; C2617; J1100; J2405; J2704; J3010; J7120; Q9966